=== PATIENT | male | born 1960 | race Caucasian/White ===

== ENCOUNTER 2017-08-31 09:54 | Inpatient (IN) | payer OTHER ==
[2017-08-31 10:12] VITALS: BMI 33.0
--- NOTE | 2017-08-31 12:35 | HP ---
CIWA Score - CIWA Score Nausea/Vomitin-No Nausea/No Vomiting Muscle Tremors: 4-Moderate,w/Arms Extend Anxiety: 4-Mod. Anxious/Guarded Agitation: 4-Moderately Restless Paroxysmal Sweats: 1-Minimal Palms Moist Orientation: 0-Oriented Tacttile Disturbances: 3-Moderate Itch/Numb/Burn Auditory Disturbances: 0-None Visual Disturbances: 0-None Headache: 0-None Present CIWA-Ar Total Score: 16 Admission ROS BHS - HPI Chief Complaint: WITHDRAWAL SX FROM ALCOHOL Allergies/Adverse Reactions: Allergies Allergy/AdvReac Type Severity Reaction Status Date / Time No Known Allergies Allergy Verified 08/31/17 11:42 History of Present Illness: 57 Y/O MALE WITH A HX OF ALCOHOL DEPENDENCE SEEKING DETOX [place] AND ON [facility]. FIRST TIME HERE IN DETOX BUT HAS PREVIOUS [place] EPISODE YEARS AGO [facility]. PT WAS IN [facility] TODAY DUE TO FEET INFECTION. PT WAS GIVEN AUGMENTIN ON DISCHARGE AND REFERRED TO DETOX. Exam Limitations: No Limitations - Ebola screening Have you traveled outside of the country in the last 21 days: No (N) Have you had contact with anyone from an Ebola affected area: No Have you been sick,other than usual withdrawal symptoms: No Do you have a fever: No - Review of Systems Constitutional: Chills, Night Sweats EENT: reports: Blurred Vision (READING GLASSES), Nose Congestion, Dental Problems (UPPER FRONTAL PERMANENT CAPS.) Respiratory: reports: No Symptoms reported Cardiac: reports: No Symptoms Reported GI: reports: Poor Fluid Intake : reports: Frequency Musculoskeletal: reports: Back Pain, Joint Pain (ARTHRITIS ON KNEE AND SHOULDERS. HX KNEE FX.), Muscle Pain, Other (BOTH TOES WITH WOUND.) Integumentary: reports: No Symptoms Reported Neuro: reports: Tremors, Unsteady Gait Endocrine: reports: No Symptoms Reported Hematology: reports: No Symptoms Reported Psychiatric: reports: Orientated x3, Anxious Other Systems: Reviewed and Negative Patient History - Patient Medical History Hx Anemia: No Hx Asthma: No Hx Chronic Obstructive Pulmonary Disease (COPD): No Hx Cardiac Disorders: No Hx Hypertension: Yes (ON MEDS) Hx Hypercholesterolemia: No HX Cerebrovascular Accident: No Hx Seizures: No Hx Diabetes: No Hx Gastrointestinal Disorders: No Hx Genitourinary Disorders: No Hx Sexually Transmitted Disorders: No Hx Renal Disease (ESRD): No Hx Thyroid Disease: No Hx Human Immunodeficiency Virus (HIV): No (NEGATIVE HX) Hx Hepatitis C: Yes (BUT NOW CONVERTED TO NEGATIVE AFTER SOMETIMES) Hx Depression: No Hx Suicide Attempt: No (DENIES) Hx Schizophrenia: No - Patient Surgical History Past Surgical History: Yes Hx Neurologic Surgery: No Hx Cataract Extraction: No Hx Cardiac Surgery: No Hx Lung Surgery: No Hx Breast Surgery: No Hx Breast Biopsy: No Hx Abdominal Surgery: No Hx Appendectomy: No Hx Cholecystectomy: No Hx Genitourinary Surgery: No Hx Section: No Hx Orthopedic Surgery: Yes (amputation, 2 right toes in 2012/2 left toes in 2014 ) Other Surgical History: left knee x3 Anesthesia Reaction: No - PPD History Previous Implant?: Yes Documented Results: Negative w/o proof Implanted On Prior [facility] Admission?: No PPD to be Administered?: Yes - Reproductive History Patient is a Female of Child Bearing Age (11 -55 yrs old): No (MALE) - Smoking Cessation Smoking history: Former smoker Have you smoked in the past 12 months: No If you are a former smoker, when did you quit?: 2016 Hx Chewing Tobacco Use: No Initiated information on smoking cessation: No - Substance & Tx. History Hx Alcohol Use: Yes (BEER) Hx Substance Use: No (DENES) Substance Use Type: Alcohol Hx Substance Use Treatment: Yes ([facility]) - Substances Abused Alcohol-beer Route: Oral Frequency: Daily Amount used: 8-10 (24 oz.) Age of first use: 17 Date of Last Use: 08/30/17 Family Disease History - Family Disease History Family Disease History: CA: Father (HTN-), Brother (HTN;ALCOHOLISM;), Sister (BREAST), Other: Father, Brother Other Family History: OTHER RELATIVES-UNCLE WITH HX CANCER.; STOMACH,PROSTATE, LYMPH NODE BREAST CANCERS RUNNING IN THE FAMILY. Admission Physical Exam BHS - Vital Signs Vital Signs: Vital Signs - 24 hr 08/31/17 10:11 Temperature 97.5 F L Pulse Rate 120 H Respiratory 18 Rate Blood Pressure 153/108 - Physical General Appearance: Yes: Moderate Distress, Irritable, Anxious HEENTM: Yes: EOMI, Normocephalic, MARLA, Pharynx Normal Respiratory: Yes: Chest Non-Tender, Lungs Clear, Normal Breath Sounds, No Respiratory Distress Neck: Yes: No masses,lesions,Nodules, Supple, Trachea in good position Breast: Yes: Breast Exam Deferred Cardiology: Yes: Regular Rhythm, Regular Rate, S1, S2 Abdominal: Yes: Normal Bowel Sounds, Non Tender, Protuberent Genitourinary: Yes: Other (N/C) Back: Yes: Within Normal Limits Musculoskeletal: Yes: full range of Motion, Gait Steady Extremities: Yes: Normal Range of Motion, Non-Tender 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, Fully Oriented, Alert, Motor Strength 5/5 Integumentary: Yes: Dry, Warm Lymphatic: Yes: Within Normal Limits - Diagnostic (1) Alcohol abuse with uncomplicated intoxication Current Visit: Yes Status: Acute (2) Hypertension Current Visit: Yes Status: Chronic Qualifiers: Hypertension type: essential hypertension Qualified Code(s): I10 - Essential (primary) hypertension (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
[2017-08-31] MEDS ORDERED: LOPERAMIDE HCL 2 MG CAPSULE PO PRN (12:53)
[2017-08-31] MEDS ORDERED: ACETAMINOPHEN 325 MG TABLET (FP) PO PRN (12:53)
[2017-08-31] MEDS ORDERED: MAGNESIUM HYDROX 2400MG/30ML ORAL SUSPENSION 30 ML CUP PO PRN (12:53)
[2017-08-31] MEDS ORDERED: MAG HYDROX/AL HYDROX/SIMETH 30 ML UNIT-DOSE CUP PO PRN (12:53)
[2017-08-31] MEDS ORDERED: guaiFENesin/D-METHORPHAN HB 10 ML UNIT-DOSE CUPS PO PRN (12:53)
[2017-08-31] MEDS ORDERED: MENTHOL/PHENOL 1 EACH UD MM PRN (12:53)
[2017-08-31] MEDS ORDERED: P-EPHED 60MG/TRIPROLIDI 2.5MG TABLET PO PRN (12:53)
[2017-08-31] MEDS ORDERED: MAGNESIUM CITRATE 300 ML BOTTLE PO PRN (12:53)
[2017-08-31] MEDS ORDERED: chlordiazePOXIDE HCL 25 MG CAPSULE PO ONE (13:30)
[2017-08-31] MEDS: NIFEdipine E.R 60 MG TABLET (UD) PO SCH (15:02)
[2017-08-31] MEDS: BACITRACIN 0.9 GM PACKET TP SCH ×2 (15:03→22:05)
[2017-08-31] MEDS ORDERED: cloNIDine HCL 0.1 MG TABLET PO ONE (17:15)
[2017-08-31 17:21] LABS: URINE APPEARANCE CLEAR; URINE BILIRUBIN NEGATIVE (NEGATIVE); URINE BLOOD NEGATIVE (NEGATIVE); URINE COLOR AMBER; URINE GLUCOSE (UA) NEGATIVE (NEGATIVE); URINE KETONE TRACE (NEGATIVE); URINE LEUK ESTERASE NEGATIVE (NEGATIVE); URINE NITRITE NEGATIVE (NEGATIVE)
[2017-08-31 17:31] LABS: URINE PROTEIN 2+ (NEGATIVE)
[2017-08-31 17:34] LABS: URINE MUCUS RARE
[2017-08-31] MEDS: chlordiazePOXIDE HCL 25 MG CAPSULE PO SCH ×2 (17:57→22:05)
[2017-08-31] MEDS: IBUPROFEN 400 MG TABLET (FP) PO PRN (17:57)
[2017-08-31] MEDS: AMOX TR/POT CLAV 875MG/125MG TABLETS (FP) PO SCH (22:05)
[2017-08-31] MEDS: THIAMINE HCL 100 MG TABLET (FP) PO SCH (22:05)
[2017-09-01] MEDS: IBUPROFEN 400 MG TABLET (FP) PO PRN ×3 (04:10→22:08)
[2017-09-01] MEDS ORDERED: METHADONE HCL 40 MG DISPERSABLE TABLET PO SCH (06:00)
[2017-09-01] MEDS: METHADONE HCL 40 MG DISPERSABLE TABLET PO SCH (06:00)
[2017-09-01] MEDS: chlordiazePOXIDE HCL 25 MG CAPSULE PO SCH ×4 (06:01→22:07)
[2017-09-01] MEDS ORDERED: ASPIRIN 81 MG CHEWABLE TABLETS PO SCH ×2 (10:00→15:30)
[2017-09-01] MEDS: NIFEdipine E.R 60 MG TABLET (UD) PO SCH (10:03)
[2017-09-01] MEDS: AMOX TR/POT CLAV 875MG/125MG TABLETS (FP) PO SCH ×2 (10:04→22:07)
[2017-09-01] MEDS: BACITRACIN 0.9 GM PACKET TP SCH ×2 (10:04→22:07)
[2017-09-01] MEDS: LISINOPRIL 10 MG TABLET (FP) PO SCH (10:04)
[2017-09-01] MEDS: PRENATAL VITAMINS W/ FOLIC ACID TABLET (FP) PO SCH (10:04)
--- NOTE | 2017-09-01 10:13 | PN ---
S CIWA - CIWA Score Nausea/Vomitin Muscle Tremors: 3 Anxiety: 3 Agitation: 2 Paroxysmal Sweats: 1-Minimal Palms Moist Orientation: 0-Oriented Tacttile Disturbances: 1-Very Mild Itch/Numbness Auditory Disturbances: 1-Very Mild Visual Disturbances: 0-None Headache: 2-Mild CIWA-Ar Total Score: 16 BHS Progress Note (SOAP) Subjective: ALERT,IRRITABLE,ANXIOUS,INTERRUPTED SLEEP,TREMOR Objective: 09/01/17 10:12 Vital Signs Temperature 97 F L 09/01/17 10:00 Pulse Rate 102 H 09/01/17 10:00 Respiratory Rate 20 09/01/17 10:00 Blood Pressure 143/88 09/01/17 10:00 O2 Sat by Pulse Oximetry (%) EKG SINUS TACHYCARDIA 103/MIN NO CHEST PAIN,NO SOB,NO DIZZINESS Laboratory Last Values Urine Color Yaneth 08/31/17 15:00 Urine Appearance Clear 08/31/17 15:00 Urine pH 5.0 (5.0-8.0) 08/31/17 15:00 Ur Specific [place] 1.020 (1.001-1.035) 08/31/17 15:00 Urine Protein 2+ (NEGATIVE) H 08/31/17 15:00 Urine Glucose (UA) Negative (NEGATIVE) 08/31/17 15:00 Urine Ketones Trace (NEGATIVE) H 08/31/17 15:00 Urine Blood Negative (NEGATIVE) 08/31/17 15:00 Urine Nitrite Negative (NEGATIVE) 08/31/17 15:00 Urine Bilirubin Negative (NEGATIVE) 08/31/17 15:00 Urine Urobilinogen 2.0 mg/dL (0.2-1.0) 08/31/17 15:00 Ur Leukocyte Esterase Negative (NEGATIVE) 08/31/17 15:00 Urine WBC (Auto) <1 /hpf (3-5) 08/31/17 15:00 Urine RBC (Auto) <1 /hpf (0-3) 08/31/17 15:00 Urine Mucus Rare 08/31/17 15:00 LABS PENDING Assessment: 09/01/17 10:13 WITHDRAWAL SYMPTOM Plan: CONTINUE DETOX
[2017-09-01 10:18] LABS: ALBUMIN 3.6 g/dl (3.4-5.0); ANION GAP 8 (8-16); BILIRUBIN,TOTAL 1.1 mg/dL (0.2-1.0); BLOOD UREA NITROGEN 15 mg/dL (7-18); CHLORIDE 102 mmol/L (98-107); CO2 29 mmol/L (21-32); CREATININE 0.9 mg/dL (0.7-1.3); GLUCOSE,RANDOM 131 mg/dL (74-106); HEMATOCRIT 39.7 % (35.4-49); HEMOGLOBIN 12.8 GM/dL (11.7-16.9); MCH 30.3 pg (25.7-33.7); MCHC 32.2 g/dl (32.0-35.9); MEAN PLT VOLUME 8.3 fl (7.5-11.1); PLATELET COUNT 125 K/MM3 (134-434); POTASSIUM 3.9 mmol/L (3.5-5.1); RBC 4.22 M/mm3 (4.00-5.60); RDW 14.2 % (11.9-15.9); SGOT/AST 319 U/L (15-37); SGPT/ALT 248 U/L (12-78); SODIUM 139 mmol/L (136-145); TOT PROT 7.8 g/dl (6.4-8.2); WHITE BLOOD COUNT 5.5 K/mm3 (4.0-10.0)
[2017-09-01 10:19] LABS: ALK PHOS 87 U/L (45-117)
[2017-09-01] MEDS: SELENIUM SULFIDE 2.5% LOTION 4 OZ. TP SCH (11:21)
--- NOTE | 2017-09-01 15:19 | EKG ---
Test Reason : Blood Pressure : / mmHG Vent. Rate : 103 BPM Atrial Rate : 103 BPM P-R Int : 130 ms QRS Dur : 096 ms QT Int : 360 ms P-R-T Axes : 060 -49 052 degrees QTc Int : 471 ms SINUS TACHYCARDIA POSSIBLE LEFT ATRIAL ENLARGEMENT LEFT ANTERIOR FASCICULAR BLOCK ABNORMAL ECG NO PREVIOUS ECGS AVAILABLE Confirmed by Flakito Aleman MD ([id number]) on 09/01/2017 3:19:15 PM Referred By: Confirmed By:Flakito Aleman MD
[2017-09-01] MEDS: THIAMINE HCL 100 MG TABLET (FP) PO SCH (22:07)
[2017-09-02] MEDS: chlordiazePOXIDE HCL 25 MG CAPSULE PO PRN ×2 (02:53→13:21)
[2017-09-02] MEDS: IBUPROFEN 400 MG TABLET (FP) PO PRN (04:29)
[2017-09-02] MEDS: chlordiazePOXIDE HCL 25 MG CAPSULE PO SCH ×2 (05:23→10:43)
[2017-09-02] MEDS: METHADONE HCL 40 MG DISPERSABLE TABLET PO SCH (05:23)
--- NOTE | 2017-09-02 10:32 | PN ---
S CIWA - CIWA Score Nausea/Vomitin Muscle Tremors: 3 Anxiety: 3 Agitation: 2 Paroxysmal Sweats: 1-Minimal Palms Moist Orientation: 0-Oriented Tacttile Disturbances: 1-Very Mild Itch/Numbness Auditory Disturbances: 1-Very Mild Visual Disturbances: 0-None Headache: 2-Mild CIWA-Ar Total Score: 16 BHS Progress Note (SOAP) Subjective: ALERT,IRRITABLE,ANXIOUS,INTERRUPTED SLEEP,PAIN IN BOTH KNEES FROM ARTHRITIS Objective: 09/02/17 10:28 Vital Signs Temperature 98.4 F 09/02/17 06:21 Pulse Rate 89 09/02/17 06:21 Respiratory Rate 18 09/02/17 06:21 Blood Pressure 133/66 09/02/17 06:21 O2 Sat by Pulse Oximetry (%) Laboratory Last Values WBC 5.5 K/mm3 (4.0-10.0) 09/01/17 08:00 RBC 4.22 M/mm3 (4.00-5.60) 09/01/17 08:00 Hgb 12.8 GM/dL (11.7-16.9) 09/01/17 08:00 Hct 39.7 % (35.4-49) 09/01/17 08:00 MCV 94.0 fl (80-96) 09/01/17 08:00 MCH 30.3 pg (25.7-33.7) 09/01/17 08:00 MCHC 32.2 g/dl (32.0-35.9) 09/01/17 08:00 RDW 14.2 % (11.9-15.9) 09/01/17 08:00 Plt Count 125 K/MM3 (134-434) L 09/01/17 08:00 MPV 8.3 fl (7.5-11.1) 09/01/17 08:00 Sodium 139 mmol/L (136-145) 09/01/17 08:00 Potassium 3.9 mmol/L (3.5-5.1) 09/01/17 08:00 Chloride 102 mmol/L (98-107) 09/01/17 08:00 Carbon Dioxide 29 mmol/L (21-32) 09/01/17 08:00 Anion Gap 8 (8-16) 09/01/17 08:00 BUN 15 mg/dL (7-18) 09/01/17 08:00 Creatinine 0.9 mg/dL (0.7-1.3) 09/01/17 08:00 Creat Clearance w eGFR > 60 (>60) 09/01/17 08:00 Random Glucose 131 mg/dL (74-106) H 09/01/17 08:00 Calcium 9.0 mg/dL (8.5-10.1) 09/01/17 08:00 Total Bilirubin 1.1 mg/dL (0.2-1.0) H 09/01/17 08:00 AST 319 U/L (15-37) H 09/01/17 08:00 ALT 248 U/L (12-78) H 09/01/17 08:00 Alkaline Phosphatase 87 U/L (45-117) 09/01/17 08:00 Total Protein 7.8 g/dl (6.4-8.2) 09/01/17 08:00 Albumin 3.6 g/dl (3.4-5.0) 09/01/17 08:00 Urine Color Yaneth 08/31/17 15:00 Urine Appearance Clear 08/31/17 15:00 Urine pH 5.0 (5.0-8.0) 08/31/17 15:00 Ur Specific [place] 1.020 (1.001-1.035) 08/31/17 15:00 Urine Protein 2+ (NEGATIVE) H 08/31/17 15:00 Urine Glucose (UA) Negative (NEGATIVE) 08/31/17 15:00 Urine Ketones Trace (NEGATIVE) H 08/31/17 15:00 Urine Blood Negative (NEGATIVE) 08/31/17 15:00 Urine Nitrite Negative (NEGATIVE) 08/31/17 15:00 Urine Bilirubin Negative (NEGATIVE) 08/31/17 15:00 Urine Urobilinogen 2.0 mg/dL (0.2-1.0) 08/31/17 15:00 Ur Leukocyte Esterase Negative (NEGATIVE) 08/31/17 15:00 Urine WBC (Auto) <1 /hpf (3-5) 08/31/17 15:00 Urine RBC (Auto) <1 /hpf (0-3) 08/31/17 15:00 Urine Mucus Rare 08/31/17 15:00 RPR Titer Nonreactive (NONREACTIVE) 09/01/17 08:00 Assessment: 09/02/17 10:30 WITHDRAWAL SYMPTOM,BGM MONITORING INITIAL GLUCOSE IS 131,D/C TYLENOL DUE TO ELEVATION OF AST,ALT REPEAT ALT,AST,INR IN AM Plan: CONTINUE DETOX
[2017-09-02] MEDS: LISINOPRIL 10 MG TABLET (FP) PO SCH (10:43)
[2017-09-02] MEDS: AMOX TR/POT CLAV 875MG/125MG TABLETS (FP) PO SCH ×2 (10:43→22:21)
[2017-09-02] MEDS: NIFEdipine E.R 60 MG TABLET (UD) PO SCH (10:43)
[2017-09-02] MEDS: ASPIRIN COATED 81 MG TABLET.EC PO SCH (10:43)
[2017-09-02] MEDS: PRENATAL VITAMINS W/ FOLIC ACID TABLET (FP) PO SCH (10:43)
[2017-09-02] MEDS: BACITRACIN 0.9 GM PACKET TP SCH ×2 (10:43→22:21)
[2017-09-02] MEDS: SELENIUM SULFIDE 2.5% LOTION 4 OZ. TP SCH (10:45)
[2017-09-02] MEDS: IBUPROFEN 600 MG TABLET (FP) PO PRN ×2 (13:21→22:22)
[2017-09-02] MEDS: chlordiazePOXIDE 5 MG CAPSULE PO SCH ×2 (18:32→22:22)
[2017-09-02] MEDS: THIAMINE HCL 100 MG TABLET (FP) PO SCH (22:22)
[2017-09-03] MEDS: IBUPROFEN 600 MG TABLET (FP) PO PRN (04:23)
[2017-09-03] MEDS: METHADONE HCL 40 MG DISPERSABLE TABLET PO SCH (05:26)
[2017-09-03] MEDS: chlordiazePOXIDE 5 MG CAPSULE PO SCH ×2 (05:26→10:45)
[2017-09-03 10:04] LABS: INR 1.08 (0.82-1.09); PROTHROMBIN TIME (PATIENT) 12.2 SEC (9.98-11.88)
[2017-09-03 10:16] LABS: SGOT/AST 135 U/L (15-37); SGPT/ALT 216 U/L (12-78)
--- NOTE | 2017-09-03 10:30 | PN ---
BHS Progress Note (SOAP) Subjective: ALERT,IRRITABLE,ANXIOUS,INTERRUPTED SLEEP,TREMOR Objective: 09/03/17 10:29 Vital Signs Temperature 97.5 F L 09/03/17 10:00 Pulse Rate 93 H 09/03/17 10:00 Respiratory Rate 20 09/03/17 10:00 Blood Pressure 124/84 09/03/17 10:00 O2 Sat by Pulse Oximetry (%) [facility] 104 Assessment: 09/03/17 10:29 WITHDRAWAL SYMPTOM Plan: CONTINUE DETOX,DISCHARGE IN AM
[2017-09-03] MEDS: NIFEdipine E.R 60 MG TABLET (UD) PO SCH (10:45)
[2017-09-03] MEDS: BACITRACIN 0.9 GM PACKET TP SCH ×2 (10:46→22:08)
[2017-09-03] MEDS: AMOX TR/POT CLAV 875MG/125MG TABLETS (FP) PO SCH ×2 (10:46→22:08)
[2017-09-03] MEDS: LISINOPRIL 10 MG TABLET (FP) PO SCH (10:46)
[2017-09-03] MEDS: PRENATAL VITAMINS W/ FOLIC ACID TABLET (FP) PO SCH (10:46)
[2017-09-03] MEDS: ASPIRIN COATED 81 MG TABLET.EC PO SCH (10:46)
[2017-09-03] MEDS: SELENIUM SULFIDE 2.5% LOTION 4 OZ. TP SCH (10:47)
[2017-09-03] MEDS: chlordiazePOXIDE HCL 10 MG CAPSULE PO SCH ×2 (18:04→22:08)
[2017-09-03] MEDS: THIAMINE HCL 100 MG TABLET (FP) PO SCH (22:07)
[2017-09-04] MEDS: IBUPROFEN 600 MG TABLET (FP) PO PRN ×2 (01:12→10:18)
[2017-09-04] MEDS: METHADONE HCL 40 MG DISPERSABLE TABLET PO SCH (05:34)
[2017-09-04] MEDS: chlordiazePOXIDE HCL 10 MG CAPSULE PO SCH ×2 (05:34→11:30)
--- NOTE | 2017-09-04 08:54 | DS ---
[facility] Detox Discharge Summary Admission Date: 08/31/17 Discharge Date: 09/04/17 - History Present History: Alcohol Dependence Additional Comments: follow up with after care program as arrangement Pertinent Past History: essential hypertension mmtp ulcers big toes - Physical Exam Results Vital Signs: Vital Signs Temperature 97.3 F L 09/04/17 06:00 Pulse Rate 103 H 09/04/17 06:47 Respiratory Rate 18 09/04/17 06:47 Blood Pressure 125/95 09/04/17 06:47 O2 Sat by Pulse Oximetry (%) Pertinent Admission Physical Exam Findings: withdrawal symptom and finding - Treatment Hospital Course: Detox Protocol Followed, Detoxed Safely, Discharged Condition Good Patient has Accepted a Rehab Referral to: declined - Medication Discharge Medications: Ambulatory Orders Amox-Tr/K Cl [Augmentin - 875Mg Tablet] 1 tab PO Q12H 08/31/17 Aspirin [ASA -] 81 mg PO DAILY 08/31/17 Lisinopril [Zestril] 10 mg PO DAILY 08/31/17 Methadone [Dolophine -] 40 mg PO DAILY 08/31/17 Nifedipine ER [Procardia Xl -] 60 mg PO DAILY 08/31/17 - Diagnosis (1) Alcohol dependence with uncomplicated withdrawal Current Visit: Yes Status: Acute (2) Alcohol abuse with uncomplicated intoxication Current Visit: Yes Status: Acute (3) Bilateral great toes ulcers Current Visit: Yes Status: Chronic (4) Hypertension Current Visit: Yes Status: Chronic Qualifiers: Hypertension type: essential hypertension Qualified Code(s): I10 - Essential (primary) hypertension (5) Methadone maintenance therapy patient Current Visit: Yes Status: Chronic (6) Arthritis of both knees Current Visit: Yes Status: Acute - AMA Did Patient Leave Against Medical Advice: No
[2017-09-04] MEDS: ASPIRIN COATED 81 MG TABLET.EC PO SCH (10:18)
[2017-09-04] MEDS: LISINOPRIL 10 MG TABLET (FP) PO SCH (10:18)
[2017-09-04] MEDS: PRENATAL VITAMINS W/ FOLIC ACID TABLET (FP) PO SCH (10:18)
[2017-09-04] MEDS: NIFEdipine E.R 60 MG TABLET (UD) PO SCH (10:18)
[2017-09-04] MEDS: BACITRACIN 0.9 GM PACKET TP SCH (10:19)
[2017-09-04] MEDS: AMOX TR/POT CLAV 875MG/125MG TABLETS (FP) PO SCH (10:19)
[2017-09-04] MEDS: SELENIUM SULFIDE 2.5% LOTION 4 OZ. TP SCH (10:19)
[2017-09-04 10:34] VITALS: BP 132/91; PULSE 109; TEMP 98
== END 2017-09-04 11:05 | disposition home or self-care (01) | DRG 773 ==
LOC: YASAS 09:54 → Y6N 12:30
PROVIDERS: ADMIT Internal Medicine; ATTEND Internal Medicine
PROC: HZ2ZZZZ Detoxification Services for Substance Abuse Treatment (ICD-10-PCS; principal; 2017-08-31)
DX: F11.20 Opioid dependence, uncomplicated (principal); F10.230 Alcohol dependence with withdrawal, uncomplicated; I10 Essential (primary) hypertension; M17.0 Bilateral primary osteoarthritis of knee; L97.519 Non-pressure chronic ulcer of other part of right foot with unspecified severity; L97.529 Non-pressure chronic ulcer of other part of left foot with unspecified severity; Z89.421 Acquired absence of other right toe(s)
CPT/HCPCS: 36415; 80053; 81003; 81015; 82962; 84450; 84460; 85027; 85610; 86593; 93005; 93010

== ENCOUNTER 2018-05-30 09:51 | Inpatient (IN) | payer OTHER ==
[2018-05-30 10:08] VITALS: BMI 32.1
--- NOTE | 2018-05-30 11:03 | HP ---
CIWA Score - CIWA Score Nausea/Vomitin Muscle Tremors: 3 Anxiety: 3 Agitation: 3 Paroxysmal Sweats: 1-Minimal Palms Moist Orientation: 0-Oriented Tacttile Disturbances: 1-Very Mild Itch/Numbness Auditory Disturbances: 1-Very Mild Visual Disturbances: 0-None Headache: 2-Mild CIWA-Ar Total Score: 16 Admission ROS BHS - HPI Chief Complaint: i need help to stop drinking alcohol Allergies/Adverse Reactions: Allergies Allergy/AdvReac Type Severity Reaction Status Date / Time No Known Allergies Allergy Verified 05/30/18 10:09 History of Present Illness: this 57 years old male with alcohol dependence,seeking detox,withdrawal symptom, last treatment [facility] 08/31/17 to 09/04/17 seen in [facility] last night,has infection both feet prescribed bactrim ds 1 tab po bid for 10 days mmtp 40 ms/day last medicated to day syncope alcohol related hypertension non compliance s/p amputation of right big toe and second toe in 2012 s/p amputation of left big toe and second toe in 2016 ulcer of right foot in 2017 ulcer left 5th toe for 2 weeks longest period of sobriety 6 months neuropathy history of hepatitis c Exam Limitations: No Limitations - Ebola screening Have you been sick,other than usual withdrawal symptoms: No - Review of Systems Constitutional: Loss of Appetite, Malaise, Night Sweats, Changes in sleep, Weakness, Unexplained wgt Loss EENT: reports: Nose Congestion Respiratory: reports: No Symptoms reported Cardiac: reports: Palpitations GI: reports: Nausea, Poor Appetite, Vomiting, Abdominal cramping : reports: No Symptoms Reported Musculoskeletal: reports: Back Pain, Muscle Pain Integumentary: reports: Dryness Neuro: reports: Headache, Tremors Endocrine: reports: No Symptoms Reported Hematology: reports: No Symptoms Reported Psychiatric: reports: No Sypmtoms Reported, Judgement Intact, Mood/Affect Appropiate, Orientated x3 Patient History - Patient Medical History Hx Anemia: No Hx Asthma: No Hx Chronic Obstructive Pulmonary Disease (COPD): No Hx Cancer: No Hx Cardiac Disorders: No Hx Hypertension: Yes (ON MEDS non compliance) Hx Hypercholesterolemia: No Hx Pacemaker: No HX Cerebrovascular Accident: No Hx Seizures: No Hx Diabetes: No Hx Gastrointestinal Disorders: No Hx Liver Disease: No Hx Genitourinary Disorders: No Hx Sexually Transmitted Disorders: No Hx Renal Disease (ESRD): No Hx Thyroid Disease: No Hx Human Immunodeficiency Virus (HIV): No (NEGATIVE HX) Hx Hepatitis C: Yes (BUT NOW CONVERTED TO NEGATIVE AFTER SOMETIMES) Hx Depression: No Hx Suicide Attempt: No (DENIES) Hx Schizophrenia: No Other Medical History: no suicidal,no homicidal,/p amputation of big and second toes bilaterally - Patient Surgical History Past Surgical History: Yes Hx Neurologic Surgery: No Hx Cataract Extraction: No Hx Cardiac Surgery: No Hx Lung Surgery: No Hx Breast Surgery: No Hx Breast Biopsy: No Hx Abdominal Surgery: No Hx Appendectomy: No Hx Cholecystectomy: No Hx Genitourinary Surgery: No Hx Section: No Hx Orthopedic Surgery: Yes (amputation B/L FOOT IST AND ) Other Surgical History: BROKEN L knee, x3 SX 20 YEARS AGO Anesthesia Reaction: No - PPD History Previous Implant?: Yes Documented Results: Negative w/proof Implanted On Prior [facility] Admission?: Yes Date: 09/02/17 Results: NEGATIVE PPD to be Administered?: No - Smoking Cessation Smoking history: Former smoker Have you smoked in the past 12 months: No If you are a former smoker, when did you quit?: 2016 Hx Chewing Tobacco Use: No Initiated information on smoking cessation: Yes 'Breaking Loose' booklet given: 05/30/18 - Substance & Tx. History Hx Alcohol Use: Yes Hx Substance Use: No Substance Use Type: Alcohol Hx Substance Use Treatment: Yes ([facility] ;04/10 to 09/04/17) - Substances Abused Alcohol Route: Oral Frequency: Daily Amount used: 12-20 CANS OF BEER (24 OUNCES) Age of first use: 18 Date of Last Use: 05/29/18 Family Disease History - Family Disease History Family Disease History: CA: Father (HTN-), Brother (HTN;ALCOHOLISM;), Sister (BREAST), Other: Father, Brother Admission Physical Exam BHS - Vital Signs Vital Signs: Vital Signs - 24 hr 05/30/18 10:06 Temperature 97.8 F Pulse Rate 117 H Respiratory 18 Rate Blood Pressure 184/119 H - Physical General Appearance: Yes: Moderate Distress, Tremorous, Irritable, Sweating, Anxious HEENTM: Yes: Normal ENT Inspection, MARLA, Pharynx Normal Respiratory: Yes: Lungs Clear, Normal Breath Sounds, No Respiratory Distress Neck: Yes: Supple Breast: Yes: Within Normal Limits Cardiology: Yes: Tachycardia Abdominal: Yes: Within Normal Limits, Normal Bowel Sounds, Non Tender, Soft Genitourinary: Yes: Within Normal Limits Back: Yes: Muscle Spasm Musculoskeletal: Yes: Back pain, Muscle Pain Extremities: Yes: Within Normal Limits, Normal Range of Motion, Tremors, Other ( s/p amputation big and second toes bilaterlly ulcer of righ foot 1x1 cm clean ulcer of left 5th toe) 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, Fully Oriented, Alert, Motor Strength 5/5 Integumentary: Yes: Dry Lymphatic: Yes: Within Normal Limits - Diagnostic (1) Alcohol dependence with uncomplicated withdrawal Current Visit: No Status: Acute (2) Arthritis of both knees Current Visit: No Status: Acute (3) Hypertension Current Visit: No Status: Chronic Qualifiers: Hypertension type: essential hypertension Qualified Code(s): I10 - Essential (primary) hypertension (4) Methadone maintenance therapy patient Current Visit: No Status: Chronic (5) History of amputation of great toe Current Visit: Yes Status: Acute (6) 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 Current Visit: Yes Status: Acute (7) 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 Current Visit: Yes Status: Acute (8) Ulcer of foot Current Visit: Yes Status: Acute Qualifiers: Laterality: left Cleared for Admission [facility] - Detox or Rehab [facility] Level of Care: Medically Managed Detox Regimen/Protocol: Librium [facility] Breath Alcohol Content Breath Alcohol Content: 0 Urine Drug Screen - Results Drug Screen Negative: No Urine Drug Screen Results: BZO-Benzodiazepines, MTD-Methadone
[2018-05-30] MEDS ORDERED: IBUPROFEN 400 MG TABLET (FP) PO PRN (11:24)
[2018-05-30] MEDS ORDERED: P-EPHED 60MG/TRIPROLIDI 2.5MG TABLET PO PRN (11:24)
[2018-05-30] MEDS ORDERED: hydrOXYzine PAMOATE 25 MG CAPSULE (FP) PO PRN (11:24)
[2018-05-30] MEDS ORDERED: guaiFENesin/D-METHORPHAN HB 10 ML UNIT-DOSE CUPS PO PRN (11:24)
[2018-05-30] MEDS ORDERED: MAGNESIUM HYDROX 2400MG/30ML ORAL SUSPENSION 30 ML CUP PO PRN (11:24)
[2018-05-30] MEDS ORDERED: MAG HYDROX/AL HYDROX/SIMETH 30 ML UNIT-DOSE CUP PO PRN (11:24)
[2018-05-30] MEDS ORDERED: MENTHOL/PHENOL 1 EACH UD MM PRN (11:24)
[2018-05-30] MEDS ORDERED: MAGNESIUM CITRATE 300 ML BOTTLE PO PRN (11:24)
[2018-05-30] MEDS ORDERED: LOPERAMIDE HCL 2 MG CAPSULE PO PRN (11:24)
[2018-05-30] MEDS ORDERED: chlordiazePOXIDE HCL 25 MG CAPSULE PO PRN (11:24)
[2018-05-30] MEDS ORDERED: ACETAMINOPHEN 325 MG TABLET (FP) PO PRN (11:24)
[2018-05-30] MEDS ORDERED: IBUPROFEN 600 MG TABLET (FP) PO PRN (11:30)
[2018-05-30] MEDS: NIFEdipine E.R 60 MG TABLET (UD) PO SCH (12:52)
[2018-05-30] MEDS: LISINOPRIL 10 MG TABLET (FP) PO SCH (12:54)
[2018-05-30] MEDS: chlordiazePOXIDE HCL 25 MG CAPSULE PO SCH ×2 (17:41→22:37)
[2018-05-30 20:42] LABS: URINE APPEARANCE CLEAR; URINE BILIRUBIN NEGATIVE (<2.0 mg/dL); URINE COLOR LTYELLOW; URINE GLUCOSE (UA) NEGATIVE (NEGATIVE); URINE KETONE NEGATIVE (NEGATIVE); URINE LEUK ESTERASE NEGATIVE (NEGATIVE); URINE NITRITE NEGATIVE (NEGATIVE); URINE PROTEIN NEGATIVE (NEGATIVE); URINE UROBILINOGEN NEGATIVE mg/dL (0.2-1.0)
[2018-05-30] MEDS ORDERED: MELATONIN 5 MG TABLETS PO PRN (22:00)
[2018-05-30] MEDS: THIAMINE HCL 100 MG TABLET (FP) PO SCH (22:36)
[2018-05-30] MEDS: SULFAMETHOXAZOLE/TRIMETHOPRIM 800MG/160MG D.S. TABLET PO SCH (22:37)
[2018-05-31] MEDS: chlordiazePOXIDE HCL 25 MG CAPSULE PO SCH ×4 (05:19→22:22)
[2018-05-31] MEDS: METHADONE HCL 40 MG DISPERSABLE TABLET PO SCH (07:51)
[2018-05-31 10:10] LABS: HEMATOCRIT 40.2 % (35.4-49); HEMOGLOBIN 13.2 GM/dL (11.7-16.9); MCH 30.4 pg (25.7-33.7); MCHC 32.9 g/dl (32.0-35.9); MEAN CELL VOLUME 92.3 fl (80-96); MEAN PLT VOLUME 8.1 fl (7.5-11.1); PLATELET COUNT 135 K/MM3 (134-434); RBC 4.35 M/mm3 (4.00-5.60); RDW 13.6 % (11.9-15.9); WHITE BLOOD COUNT 4.5 K/mm3 (4.0-10.0)
[2018-05-31] MEDS: SULFAMETHOXAZOLE/TRIMETHOPRIM 800MG/160MG D.S. TABLET PO SCH ×2 (10:21→22:22)
[2018-05-31] MEDS: NIFEdipine E.R 60 MG TABLET (UD) PO SCH (10:21)
[2018-05-31] MEDS: PRENATAL VITAMINS W/ FOLIC ACID TABLET (FP) PO SCH (10:21)
[2018-05-31] MEDS: LISINOPRIL 10 MG TABLET (FP) PO SCH (10:21)
[2018-05-31] MEDS: ASPIRIN 81 MG CHEWABLE TABLETS PO SCH (10:22)
[2018-05-31 10:37] LABS: ALBUMIN 3.5 g/dl (3.4-5.0); ALK PHOS 94 U/L (45-117); ANION GAP 8 MMOL/L (8-16); BILIRUBIN,TOTAL 0.7 mg/dL (0.2-1); BLOOD UREA NITROGEN 10 mg/dL (7-18); CALCIUM 8.9 mg/dL (8.5-10.1); CHLORIDE 105 mmol/L (98-107); CO2 29 mmol/L (21-32); CREATININE 0.6 mg/dL (0.55-1.3); GLUCOSE,RANDOM 104 mg/dL (74-106); SGOT/AST 44 U/L (15-37); SGPT/ALT 47 U/L (13-61); SODIUM 142 mmol/L (136-145); TOT PROT 7.7 g/dl (6.4-8.2)
--- NOTE | 2018-05-31 11:11 | EKG ---
Test Reason : Blood Pressure : / mmHG Vent. Rate : 092 BPM Atrial Rate : 092 BPM P-R Int : 122 ms QRS Dur : 106 ms QT Int : 388 ms P-R-T Axes : 042 -56 011 degrees QTc Int : 479 ms NORMAL SINUS RHYTHM LEFT ANTERIOR FASCICULAR BLOCK ABNORMAL ECG WHEN COMPARED WITH ECG OF 31-AUG-2017 14:01, T WAVE VARIATION Confirmed by ALKA TYSON MD ([id number]) on 05/31/2018 11:10:57 AM Referred By: BESSY HERNÁNDEZ Confirmed By:ALKA TYSON MD
[2018-05-31] MEDS ORDERED: FLU VACCINE QUAD 60 MCG/0.5 ML (MDV 18-19) IM ONE (12:00)
--- NOTE | 2018-05-31 12:03 | PN ---
S CIWA - CIWA Score Nausea/Vomitin Muscle Tremors: 3 Anxiety: 3 Agitation: 2 Paroxysmal Sweats: 3 Orientation: 0-Oriented Tacttile Disturbances: 0-None Auditory Disturbances: 0-None Visual Disturbances: 0-None Headache: 0-None Present CIWA-Ar Total Score: 13 BHS Progress Note (SOAP) Subjective: Sweats Shakes sleep disturbance Objective: 05/31/18 11:58 Anxious A & Ox 3 Vital Signs Temperature 97.4 F L 05/31/18 09:45 Pulse Rate 93 H 05/31/18 09:45 Respiratory Rate 20 05/31/18 09:45 Blood Pressure 128/83 05/31/18 09:45 O2 Sat by Pulse Oximetry (%) Laboratory Last Values WBC 4.5 K/mm3 (4.0-10.0) 05/31/18 07:30 RBC 4.35 M/mm3 (4.00-5.60) 05/31/18 07:30 Hgb 13.2 GM/dL (11.7-16.9) 05/31/18 07:30 Hct 40.2 % (35.4-49) 05/31/18 07:30 MCV 92.3 fl (80-96) 05/31/18 07:30 MCH 30.4 pg (25.7-33.7) 05/31/18 07:30 MCHC 32.9 g/dl (32.0-35.9) 05/31/18 07:30 RDW 13.6 % (11.9-15.9) 05/31/18 07:30 Plt Count 135 K/MM3 (134-434) 05/31/18 07:30 MPV 8.1 fl (7.5-11.1) 05/31/18 07:30 Sodium 142 mmol/L (136-145) 05/31/18 07:30 Potassium 3.0 mmol/L (3.5-5.1) L 05/31/18 07:30 Chloride 105 mmol/L (98-107) 05/31/18 07:30 Carbon Dioxide 29 mmol/L (21-32) 05/31/18 07:30 Anion Gap 8 MMOL/L (8-16) 05/31/18 07:30 BUN 10 mg/dL (7-18) 05/31/18 07:30 Creatinine 0.6 mg/dL (0.55-1.3) 05/31/18 07:30 Creat Clearance w eGFR > 60 (>60) 05/31/18 07:30 Random Glucose 104 mg/dL (74-106) 05/31/18 07:30 Calcium 8.9 mg/dL (8.5-10.1) 05/31/18 07:30 Total Bilirubin 0.7 mg/dL (0.2-1) 05/31/18 07:30 AST 44 U/L (15-37) H 05/31/18 07:30 ALT 47 U/L (13-61) 05/31/18 07:30 Alkaline Phosphatase 94 U/L (45-117) 05/31/18 07:30 Total Protein 7.7 g/dl (6.4-8.2) 05/31/18 07:30 Albumin 3.5 g/dl (3.4-5.0) 05/31/18 07:30 Urine Color Ltyellow 05/30/18 15:49 Urine Appearance Clear 05/30/18 15:49 Urine pH 6.0 (5.0-8.0) 05/30/18 15:49 Ur Specific [place] 1.011 (1.010-1.035) 05/30/18 15:49 Urine Protein Negative (NEGATIVE) 05/30/18 15:49 Urine Glucose (UA) Negative (NEGATIVE) 05/30/18 15:49 Urine Ketones Negative (NEGATIVE) 05/30/18 15:49 Urine Blood Negative (NEGATIVE) 05/30/18 15:49 Urine Nitrite Negative (NEGATIVE) 05/30/18 15:49 Urine Bilirubin Negative (<2.0 mg/dL) 05/30/18 15:49 Urine Urobilinogen Negative mg/dL (0.2-1.0) 05/30/18 15:49 Ur Leukocyte Esterase Negative (NEGATIVE) 05/30/18 15:49 RPR Titer Nonreactive (NONREACTIVE) 05/31/18 07:30 labs noted Assessment: 05/31/18 12:03 withdrawal sx Plan: For d/c Continue wound dressing Increase water hydration
[2018-05-31] MEDS: BACITRACIN 0.9 GM PACKET TP SCH ×2 (12:40→22:22)
--- NOTE | 2018-05-31 17:02 | PN ---
[facility] Progress Note Note: Vital Signs Temperature 97.4 F L 05/31/18 14:23 Pulse Rate 114 H 05/31/18 14:23 Respiratory Rate 20 05/31/18 14:23 Blood Pressure 125/87 05/31/18 14:23 O2 Sat by Pulse Oximetry (%) Laboratory Last Values WBC 4.5 K/mm3 (4.0-10.0) 05/31/18 07:30 RBC 4.35 M/mm3 (4.00-5.60) 05/31/18 07:30 Hgb 13.2 GM/dL (11.7-16.9) 05/31/18 07:30 Hct 40.2 % (35.4-49) 05/31/18 07:30 MCV 92.3 fl (80-96) 05/31/18 07:30 MCH 30.4 pg (25.7-33.7) 05/31/18 07:30 MCHC 32.9 g/dl (32.0-35.9) 05/31/18 07:30 RDW 13.6 % (11.9-15.9) 05/31/18 07:30 Plt Count 135 K/MM3 (134-434) 05/31/18 07:30 MPV 8.1 fl (7.5-11.1) 05/31/18 07:30 Sodium 142 mmol/L (136-145) 05/31/18 07:30 Potassium 3.0 mmol/L (3.5-5.1) L 05/31/18 07:30 Chloride 105 mmol/L (98-107) 05/31/18 07:30 Carbon Dioxide 29 mmol/L (21-32) 05/31/18 07:30 Anion Gap 8 MMOL/L (8-16) 05/31/18 07:30 BUN 10 mg/dL (7-18) 05/31/18 07:30 Creatinine 0.6 mg/dL (0.55-1.3) 05/31/18 07:30 Creat Clearance w eGFR > 60 (>60) 05/31/18 07:30 Random Glucose 104 mg/dL (74-106) 05/31/18 07:30 Calcium 8.9 mg/dL (8.5-10.1) 05/31/18 07:30 Total Bilirubin 0.7 mg/dL (0.2-1) 05/31/18 07:30 AST 44 U/L (15-37) H 05/31/18 07:30 ALT 47 U/L (13-61) 05/31/18 07:30 Alkaline Phosphatase 94 U/L (45-117) 05/31/18 07:30 Total Protein 7.7 g/dl (6.4-8.2) 05/31/18 07:30 Albumin 3.5 g/dl (3.4-5.0) 05/31/18 07:30 Urine Color Ltyellow 05/30/18 15:49 Urine Appearance Clear 05/30/18 15:49 Urine pH 6.0 (5.0-8.0) 05/30/18 15:49 Ur Specific [place] 1.011 (1.010-1.035) 05/30/18 15:49 Urine Protein Negative (NEGATIVE) 05/30/18 15:49 Urine Glucose (UA) Negative (NEGATIVE) 05/30/18 15:49 Urine Ketones Negative (NEGATIVE) 05/30/18 15:49 Urine Blood Negative (NEGATIVE) 05/30/18 15:49 Urine Nitrite Negative (NEGATIVE) 05/30/18 15:49 Urine Bilirubin Negative (<2.0 mg/dL) 05/30/18 15:49 Urine Urobilinogen Negative mg/dL (0.2-1.0) 05/30/18 15:49 Ur Leukocyte Esterase Negative (NEGATIVE) 05/30/18 15:49 RPR Titer Nonreactive (NONREACTIVE) 05/31/18 07:30 hypokalemia start Kdur repeat K+ in AM continue to monitor
[2018-05-31] MEDS ORDERED: POTASSIUM CHLORIDE TABS 20 MEQ TABLET.ER (FP) PO ONE (17:30)
[2018-05-31] MEDS: THIAMINE HCL 100 MG TABLET (FP) PO SCH (22:22)
[2018-06-01] MEDS: METHADONE HCL 40 MG DISPERSABLE TABLET PO SCH (05:14)
[2018-06-01] MEDS: chlordiazePOXIDE HCL 25 MG CAPSULE PO SCH ×2 (05:14→10:09)
[2018-06-01] MEDS: SULFAMETHOXAZOLE/TRIMETHOPRIM 800MG/160MG D.S. TABLET PO SCH ×2 (10:08→22:09)
[2018-06-01] MEDS: LISINOPRIL 10 MG TABLET (FP) PO SCH (10:08)
[2018-06-01] MEDS: BACITRACIN 0.9 GM PACKET TP SCH ×2 (10:08→22:09)
[2018-06-01] MEDS: PRENATAL VITAMINS W/ FOLIC ACID TABLET (FP) PO SCH (10:08)
[2018-06-01] MEDS: ASPIRIN 81 MG CHEWABLE TABLETS PO SCH (10:08)
[2018-06-01] MEDS: NIFEdipine E.R 60 MG TABLET (UD) PO SCH (10:09)
--- NOTE | 2018-06-01 11:18 | PN ---
S CIWA - CIWA Score Nausea/Vomitin-No Nausea/No Vomiting Muscle Tremors: 3 Anxiety: 1-Mildly Anxious Agitation: 1-Slight > Activity Paroxysmal Sweats: 3 Orientation: 0-Oriented Tacttile Disturbances: 3-Moderate Itch/Numb/Burn Auditory Disturbances: 0-None Visual Disturbances: 0-None Headache: 0-None Present CIWA-Ar Total Score: 11 BHS Progress Note (SOAP) Subjective: PATIENT C/O BURNING, NUMBNESS AND TINGLING TO FEET, SHAKES AND ANXIETY Objective: 06/01/18 11:16 Vital Signs Temperature 99.3 F 06/01/18 09:24 Pulse Rate 100 H 06/01/18 09:24 Respiratory Rate 19 06/01/18 09:24 Blood Pressure 134/99 06/01/18 09:24 O2 Sat by Pulse Oximetry (%) Laboratory Tests 05/30/18 05/31/18 05/31/18 15:49 07:30 07:30 WBC 4.5 RBC 4.35 Hgb 13.2 Hct 40.2 MCV 92.3 MCH 30.4 MCHC 32.9 RDW 13.6 Plt Count 135 MPV 8.1 Sodium 142 Potassium 3.0 L Chloride 105 Carbon Dioxide 29 Anion Gap 8 BUN 10 Creatinine 0.6 Creat Clearance w eGFR > 60 Random Glucose 104 Calcium 8.9 Total Bilirubin 0.7 AST 44 H ALT 47 Alkaline Phosphatase 94 Total Protein 7.7 Albumin 3.5 Urine Color Ltyellow Urine Appearance Clear Urine pH 6.0 Ur Specific [place] 1.011 Urine Protein Negative Urine Glucose (UA) Negative Urine Ketones Negative Urine Blood Negative Urine Nitrite Negative Urine Bilirubin Negative Urine Urobilinogen Negative Ur Leukocyte Esterase Negative RPR Titer 05/31/18 06/01/18 07:30 07:00 WBC RBC Hgb Hct MCV MCH MCHC RDW Plt Count MPV Sodium Potassium 4.1 Chloride Carbon Dioxide Anion Gap BUN Creatinine Creat Clearance w eGFR Random Glucose Calcium Total Bilirubin AST ALT Alkaline Phosphatase Total Protein Albumin Urine Color Urine Appearance Urine pH Ur Specific [place] Urine Protein Urine Glucose (UA) Urine Ketones Urine Blood Urine Nitrite Urine Bilirubin Urine Urobilinogen Ur Leukocyte Esterase RPR Titer Nonreactive SKIN +FACIAL FLUSHING, CAR S1S2 RESP CTA BL EXT +TREMORS ALERT AND ORIENTED Assessment: 06/01/18 11:17 WITHDRAWAL SYNDROME Plan: CONTINUE DETOX ENCOURAGE ORAL FLUIDS CONTINUE TO MONITOR CLINICALLY
[2018-06-01] MEDS: chlordiazePOXIDE 5 MG CAPSULE PO SCH ×2 (17:27→22:09)
[2018-06-01] MEDS: THIAMINE HCL 100 MG TABLET (FP) PO SCH (22:09)
[2018-06-02] MEDS: METHADONE HCL 40 MG DISPERSABLE TABLET PO SCH (05:19)
[2018-06-02] MEDS: chlordiazePOXIDE 5 MG CAPSULE PO SCH ×2 (05:19→10:15)
[2018-06-02] MEDS: LISINOPRIL 10 MG TABLET (FP) PO SCH (10:15)
[2018-06-02] MEDS: PRENATAL VITAMINS W/ FOLIC ACID TABLET (FP) PO SCH (10:15)
[2018-06-02] MEDS: BACITRACIN 0.9 GM PACKET TP SCH ×2 (10:15→22:17)
[2018-06-02] MEDS: NIFEdipine E.R 60 MG TABLET (UD) PO SCH (10:15)
[2018-06-02] MEDS: ASPIRIN 81 MG CHEWABLE TABLETS PO SCH (10:15)
[2018-06-02] MEDS: SULFAMETHOXAZOLE/TRIMETHOPRIM 800MG/160MG D.S. TABLET PO SCH ×2 (10:15→22:17)
--- NOTE | 2018-06-02 10:23 | PN ---
[facility] Progress Note Note: PATIENT TOLERATING DETOX WELL. DENIES SHAKES, N/V/D, SWEATING. Laboratory Tests 05/30/18 05/31/18 05/31/18 15:49 07:30 07:30 WBC 4.5 RBC 4.35 Hgb 13.2 Hct 40.2 MCV 92.3 MCH 30.4 MCHC 32.9 RDW 13.6 Plt Count 135 MPV 8.1 Sodium 142 Potassium 3.0 L Chloride 105 Carbon Dioxide 29 Anion Gap 8 BUN 10 Creatinine 0.6 Creat Clearance w eGFR > 60 Random Glucose 104 Calcium 8.9 Total Bilirubin 0.7 AST 44 H ALT 47 Alkaline Phosphatase 94 Total Protein 7.7 Albumin 3.5 Urine Color Ltyellow Urine Appearance Clear Urine pH 6.0 Ur Specific [place] 1.011 Urine Protein Negative Urine Glucose (UA) Negative Urine Ketones Negative Urine Blood Negative Urine Nitrite Negative Urine Bilirubin Negative Urine Urobilinogen Negative Ur Leukocyte Esterase Negative RPR Titer 05/31/18 06/01/18 07:30 07:00 WBC RBC Hgb Hct MCV MCH MCHC RDW Plt Count MPV Sodium Potassium 4.1 Chloride Carbon Dioxide Anion Gap BUN Creatinine Creat Clearance w eGFR Random Glucose Calcium Total Bilirubin AST ALT Alkaline Phosphatase Total Protein Albumin Urine Color Urine Appearance Urine pH Ur Specific [place] Urine Protein Urine Glucose (UA) Urine Ketones Urine Blood Urine Nitrite Urine Bilirubin Urine Urobilinogen Ur Leukocyte Esterase RPR Titer Nonreactive Vital Signs Temperature 97.2 F L 06/02/18 09:37 Pulse Rate 116 H 06/02/18 09:37 Respiratory Rate 148 H 06/02/18 09:37 Blood Pressure 127/78 06/02/18 09:37 O2 Sat by Pulse Oximetry (%) SKIN +FLUSHED, WARM AND DRY ALERT AND ORIENTED X 3 EXT FULL ROM AMB AD PAO CONTINUE DETOX ORAL FLUIDS ENCOURAGED FOR D/C HOME IN THE MORNING PATIENT TO ATTEND OUT PATIENT AA UPON D/C
[2018-06-02] MEDS: chlordiazePOXIDE HCL 10 MG CAPSULE PO SCH ×2 (17:35→22:17)
[2018-06-02] MEDS: THIAMINE HCL 100 MG TABLET (FP) PO SCH (22:17)
[2018-06-03] MEDS: chlordiazePOXIDE HCL 10 MG CAPSULE PO SCH (05:21)
[2018-06-03] MEDS: METHADONE HCL 40 MG DISPERSABLE TABLET PO SCH (05:21)
[2018-06-03 10:12] VITALS: BP 139/92; PULSE 106; TEMP 99.1
--- NOTE | 2018-06-03 11:02 | DS ---
[facility] Detox Discharge Summary Admission Date: 05/30/18 Discharge Date: 06/03/18 - History Present History: Alcohol Dependence - Physical Exam Results Vital Signs: Vital Signs Temperature 99.1 F 06/03/18 10:11 Pulse Rate 106 H 06/03/18 10:11 Respiratory Rate 18 06/03/18 10:11 Blood Pressure 139/92 06/03/18 10:11 O2 Sat by Pulse Oximetry (%) Pertinent Admission Physical Exam Findings: PATIENT TOLERATED DETOX WELL. ALERT AND ORIENTED X 3. SKIN WARM AND DRY. AMB AD PAO. PATIENT DENIES SI/HI. MEDICALLY STABLE. PATIENT ENCOURAGED TO FOLLOW UP WITH OUTPATIENT METHADONE PROGRAM UPON DISCHARGE AND TO CONTINUE WITH GROUP MEETINGS TO PREVENT RELAPSE. PATIENT ENCOURAGED TO SEEK MEDICAL ATTENTION IF WITHDRAWAL SYMPTOMS OCCUR AND TO FOLLOW UP WITH PCP WITHIN ONE WEEK OF DISCHARGE. DISCHARGE INSTRUCTIONS PROVIDED TO PATIENT BY STAFF. - Treatment Hospital Course: Detox Protocol Followed, Detoxed Safely, Responded well, Discharged Condition Good, Rehab Referral Accepted Patient has Accepted a Rehab Referral to: FOLLOW UP WITH OUT PATIENT METHADONE PROGRAM/AA - Medication Discharge Medications: Ambulatory Orders Methadone [Dolophine -] 40 mg PO DAILY 08/31/17 Aspirin Coated [Ecotrin -] 81 mg PO DAILY #30 tablet.ec 09/04/17 Ibuprofen 600 mg PO Q6H PRN 05/30/18 Sulfamethoxazole/Trimethoprim [Bactrim Ds -] 1 tab PO BID 05/30/18 Aspirin [ASA -] 81 mg PO DAILY #30 tab.chew 06/02/18 Lisinopril [Zestril] 10 mg PO DAILY #30 tablet 06/02/18 Nifedipine ER [Procardia XL -] 60 mg PO DAILY #30 tab.er.24 06/02/18 - Diagnosis (1) Alcohol dependence with uncomplicated withdrawal Status: Resolved - AMA Did Patient Leave Against Medical Advice: No
== END 2018-06-03 10:23 | disposition home or self-care (01) | DRG 773 ==
LOC: YASAS 09:51 → Y3N 11:14
PROC: HZ2ZZZZ Detoxification Services for Substance Abuse Treatment (ICD-10-PCS; principal; 2018-05-30)
DX: F10.230 Alcohol dependence with withdrawal, uncomplicated (principal); F11.20 Opioid dependence, uncomplicated; I10 Essential (primary) hypertension; E87.6 Hypokalemia; G62.9 Polyneuropathy, unspecified; L97.529 Non-pressure chronic ulcer of other part of left foot with unspecified severity; L97.519 Non-pressure chronic ulcer of other part of right foot with unspecified severity; M13.862 Other specified arthritis, left knee; M13.861 Other specified arthritis, right knee; Z89.412 Acquired absence of left great toe; Z89.411 Acquired absence of right great toe; Z89.422 Acquired absence of other left toe(s); Z89.421 Acquired absence of other right toe(s); Z91.14 Patient's other noncompliance with medication regimen; Z87.891 Personal history of nicotine dependence
CPT/HCPCS: 36415; 80053; 81003; 84132; 85027; 86593; 90688; 93005; 93010; G0008

== ENCOUNTER 2018-06-21 20:30 | Inpatient (IN) | payer OTHER ==
[2018-06-21 20:52] VITALS: BMI 34.1
--- NOTE | 2018-06-21 21:17 | HP ---
CIWA Score - CIWA Score Nausea/Vomitin-No Nausea/No Vomiting Muscle Tremors: 2 Anxiety: 3 Agitation: 2 Paroxysmal Sweats: 1-Minimal Palms Moist Orientation: 0-Oriented Tacttile Disturbances: 2-Mild Itch/Numbness/Burn Auditory Disturbances: 0-None Visual Disturbances: 1-Very Mild Sensitivity Headache: 0-None Present CIWA-Ar Total Score: 11 Admission ROS BHS - HPI Chief Complaint: " I relapse, I need help " alcohol withdrawal sx Allergies/Adverse Reactions: Allergies Allergy/AdvReac Type Severity Reaction Status Date / Time No Known Allergies Allergy Verified 05/30/18 10:09 History of Present Illness: Patient is a 57 yo male with hx of alcohol dependence is here seeking detox and withdrawal sx, reports relapse after last detox treatment at [facility] 05/30/18 -07/11. Currently linked to MMTP at [facility] on 40 mg last medicated today. Hx of EOTH relapsed syncope. Denies hx of seizures. PMHX: neuropathy, Hep C, HTN (non-compliance with meds, s/p amputation of right big toe and second toe in 2012, s/p amputation of left big toe and second toe in 2016 ulcer of right foot in 2017, ulcer left 5th toe for 4 weeks, anxiety. Denies suicidal / homicidal ideation at this time or hx of suicide attempt. Denies any legal troubles at this time. Exam Limitations: No Limitations - Ebola screening Have you traveled outside of the country in the last 21 days: No (N) Have you had contact with anyone from an Ebola affected area: No Have you been sick,other than usual withdrawal symptoms: No Do you have a fever: No - Review of Systems Constitutional: Chills, Changes in sleep, Other (fatigue) EENT: reports: No Symptoms Reported Respiratory: reports: No Symptoms reported Cardiac: reports: No Symptoms Reported GI: reports: Poor Fluid Intake, Indigestion, Other (flactulance) : reports: No Symptoms Reported Musculoskeletal: reports: Joint Pain (b/l knee) Integumentary: reports: See HPI Neuro: reports: See HPI, Numbness (both lower extremities), Tingling Endocrine: reports: Increased Thirst Hematology: reports: No Symptoms Reported Psychiatric: reports: Orientated x3, Anxious Other Systems: Reviewed and Negative Patient History - Patient Medical History Hx Anemia: No Hx Asthma: No Hx Chronic Obstructive Pulmonary Disease (COPD): No Hx Cancer: No Hx Cardiac Disorders: No Hx Hypertension: Yes (ON MEDS non compliance) Hx Hypercholesterolemia: No Hx Pacemaker: No HX Cerebrovascular Accident: No Hx Seizures: No Hx Diabetes: No Hx Gastrointestinal Disorders: No Hx Liver Disease: No Hx Genitourinary Disorders: No Hx Sexually Transmitted Disorders: No Hx Renal Disease (ESRD): No Hx Thyroid Disease: No Hx Human Immunodeficiency Virus (HIV): No (NEGATIVE HX) Hx Hepatitis C: Yes (BUT NOW CONVERTED TO NEGATIVE AFTER SOMETIMES) Hx Depression: No Hx Suicide Attempt: No (DENIES) Hx Schizophrenia: No - Patient Surgical History Past Surgical History: Yes Hx Neurologic Surgery: No Hx Cataract Extraction: No Hx Cardiac Surgery: No Hx Lung Surgery: No Hx Breast Surgery: No Hx Breast Biopsy: No Hx Abdominal Surgery: No Hx Appendectomy: No Hx Cholecystectomy: No Hx Genitourinary Surgery: No Hx Section: No Hx Orthopedic Surgery: Yes (amputation B/L FOOT IST AND ) Other Surgical History: BROKEN L knee, x3 SX 20 YEARS AGO Anesthesia Reaction: No - PPD History Previous Implant?: No Documented Results: Negative w/proof Date: 09/02/17 Results: NEGATIVE PPD to be Administered?: No - Smoking Cessation Smoking history: Former smoker Have you smoked in the past 12 months: No If you are a former smoker, when did you quit?: 2016 Hx Chewing Tobacco Use: No Initiated information on smoking cessation: No - Substance & Tx. History Hx Alcohol Use: Yes Hx Substance Use: Yes Substance Use Type: Alcohol Hx Substance Use Treatment: Yes (Detox [facility] 05/30/18 -06/03/18) - Substances Abused Alcohol Route: Oral Frequency: Daily Amount used: 15 - 20 beers x 24 oz Age of first use: 16 Date of Last Use: 06/21/18 Family Disease History - Family Disease History Family Disease History: CA: Father (HTN-), Brother (HTN;ALCOHOLISM;), Sister (BREAST), Other: Father, Brother Admission Physical Exam BHS - Vital Signs Vital Signs: Vital Signs - 24 hr 06/21/18 20:47 Temperature 98.6 F Pulse Rate 96 H Respiratory 18 Rate Blood Pressure 130/86 - Physical General Appearance: Yes: Disheveled, Alcohol on Breath, Irritable, Sweating HEENTM: Yes: EOMI, Hearing grossly Normal, Normal ENT Inspection, Normocephalic , Normal Voice, MARLA, Pharynx Normal, Tm's normal, Other (cheilithis, poor dentition) Respiratory: Yes: Chest Non-Tender, Lungs Clear, Normal Breath Sounds, No Respiratory Distress, No Accessory Muscle Use Neck: Yes: Within Normal Limits Breast: Yes: Breast Exam Deferred Cardiology: Yes: Regular Rhythm, Regular Rate Abdominal: Yes: Normal Bowel Sounds, Non Tender, Protuberent Genitourinary: Yes: Within Normal Limits Back: Yes: Normal Inspection Musculoskeletal: Yes: full range of Motion, Gait Steady, Pelvis Stable, Other (b /l knee pain) Extremities: Yes: Normal Capillary Refill, Normal Inspection, Normal Range of Motion, Non-Tender, Other (amputation left and right great toe, amputation left and right second toe bilaterlly ulcer of righ foot 1x1 cm clean ulcer of left 5th toe) 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, Fully Oriented, Motor Strength 5/5, Depressed Affect Integumentary: Yes: Normal Color Lymphatic: Yes: Within Normal Limits - Diagnostic (1) Arthritis of both knees Current Visit: Yes Status: Acute (2) History of amputation of great toe Current Visit: Yes Status: Acute (3) 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 Current Visit: Yes Status: Chronic (4) 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 Current Visit: Yes Status: Acute (5) Ulcer of foot Current Visit: Yes Status: Chronic Qualifiers: Laterality: left (6) Hypertension Current Visit: Yes Status: Chronic Qualifiers: Hypertension type: essential hypertension Qualified Code(s): I10 - Essential (primary) hypertension (7) Methadone maintenance therapy patient Current Visit: Yes Status: Chronic Comment: on MMTP 40 mg, dose pending verification (8) Alcohol dependence with uncomplicated withdrawal Current Visit: Yes Status: Acute (9) Obese Current Visit: Yes Status: Chronic Qualifiers: Obesity type: unspecified obesity type Obesity classification: adult class 1 (BMI 30 - 34.9) Body mass index: BMI 34.0-34.9 Cleared for Admission [facility] - Detox or Rehab [facility] Level of Care: Medically Managed Detox Regimen/Protocol: Librium BHS Breath Alcohol Content Breath Alcohol Content: 0.278 Urine Drug Screen - Results Drug Screen Negative: No Urine Drug Screen Results: BZO-Benzodiazepines, MTD-Methadone
[2018-06-21] MEDS ORDERED: MAGNESIUM HYDROX 2400MG/30ML ORAL SUSPENSION 30 ML CUP PO PRN (21:47)
[2018-06-21] MEDS ORDERED: chlordiazePOXIDE HCL 25 MG CAPSULE PO PRN (21:47)
[2018-06-21] MEDS ORDERED: guaiFENesin/D-METHORPHAN HB 10 ML UNIT-DOSE CUPS PO PRN (21:47)
[2018-06-21] MEDS ORDERED: P-EPHED 60MG/TRIPROLIDI 2.5MG TABLET PO PRN (21:47)
[2018-06-21] MEDS ORDERED: LOPERAMIDE HCL 2 MG CAPSULE PO PRN (21:47)
[2018-06-21] MEDS ORDERED: MENTHOL/PHENOL 1 EACH UD MM PRN (21:47)
[2018-06-21] MEDS ORDERED: MAGNESIUM CITRATE 300 ML BOTTLE PO PRN (21:47)
[2018-06-21] MEDS ORDERED: MAG HYDROX/AL HYDROX/SIMETH 30 ML UNIT-DOSE CUP PO PRN (21:47)
[2018-06-21] MEDS ORDERED: ACETAMINOPHEN 325 MG TABLET (FP) PO PRN (21:47)
[2018-06-21] MEDS ORDERED: MELATONIN 5 MG TABLETS PO PRN (22:00)
[2018-06-21] MEDS: BACITRACIN 0.9 GM PACKET TP SCH (23:10)
[2018-06-21] MEDS: THIAMINE HCL 100 MG TABLET (FP) PO SCH (23:10)
[2018-06-21] MEDS: chlordiazePOXIDE HCL 25 MG CAPSULE PO SCH (23:10)
[2018-06-21 23:17] LABS: URINE APPEARANCE CLEAR; URINE BILIRUBIN NEGATIVE (<2.0 mg/dL); URINE COLOR STRAW; URINE GLUCOSE (UA) NEGATIVE (NEGATIVE); URINE KETONE NEGATIVE (NEGATIVE); URINE LEUK ESTERASE NEGATIVE (NEGATIVE); URINE NITRITE NEGATIVE (NEGATIVE); URINE PROTEIN NEGATIVE (NEGATIVE); URINE UROBILINOGEN NEGATIVE mg/dL (0.2-1.0)
[2018-06-22] MEDS: chlordiazePOXIDE HCL 25 MG CAPSULE PO SCH ×4 (05:45→22:18)
[2018-06-22] MEDS ORDERED: cloNIDine HCL 0.1 MG TABLET PO ONE ×2 (07:04→17:30)
--- NOTE | 2018-06-22 07:07 | PN ---
BHS Progress Note Note: Patient's b lood pressure is B/P 175/111. Patient is asymptomatic Vital Signs Temperature 97.4 F L 06/22/18 06:03 Pulse Rate 18 L 06/22/18 06:03 Respiratory Rate 97 H 06/22/18 06:03 Blood Pressure 175/111 H 06/22/18 06:03 O2 Sat by Pulse Oximetry (%) Action: Clonidine 0.1mg tablet ordered
[2018-06-22] MEDS: METHADONE HCL 40 MG DISPERSABLE TABLET PO SCH (07:42)
[2018-06-22 10:16] LABS: MCH 29.8 pg (25.7-33.7); MCHC 32.4 g/dl (32.0-35.9); MEAN CELL VOLUME 91.9 fl (80-96); PLATELET COUNT 120 K/MM3 (134-434); RBC 4.03 M/mm3 (4.00-5.60); RDW 13.5 % (11.9-15.9); WHITE BLOOD COUNT 4.3 K/mm3 (4.0-10.0)
[2018-06-22] MEDS: ASPIRIN 81 MG CHEWABLE TABLETS PO SCH (10:19)
[2018-06-22] MEDS: LISINOPRIL 10 MG TABLET (FP) PO SCH (10:19)
[2018-06-22] MEDS: NIFEdipine E.R 60 MG TABLET (UD) PO SCH (10:19)
[2018-06-22] MEDS: PRENATAL VITAMINS W/ FOLIC ACID TABLET (FP) PO SCH (10:19)
[2018-06-22] MEDS: BACITRACIN 0.9 GM PACKET TP SCH ×2 (10:19→22:17)
[2018-06-22 10:43] LABS: ALBUMIN 3.6 g/dl (3.4-5.0); ALK PHOS 88 U/L (45-117); ANION GAP 10 MMOL/L (8-16); BILIRUBIN,TOTAL 0.3 mg/dL (0.2-1); BLOOD UREA NITROGEN 15 mg/dL (7-18); CALCIUM 8.7 mg/dL (8.5-10.1); CHLORIDE 106 mmol/L (98-107); CO2 27 mmol/L (21-32); CREATININE 0.7 mg/dL (0.55-1.3); GLUCOSE,RANDOM 91 mg/dL (74-106); POTASSIUM 3.9 mmol/L (3.5-5.1); SGOT/AST 49 U/L (15-37); SGPT/ALT 49 U/L (13-61); SODIUM 143 mmol/L (136-145); TOT PROT 7.6 g/dl (6.4-8.2)
--- NOTE | 2018-06-22 10:55 | PN ---
[facility] CIWA - CIWA Score Nausea/Vomitin-No Nausea/No Vomiting Muscle Tremors: 2 Anxiety: 2 Agitation: 2 Paroxysmal Sweats: No Perspiration Orientation: 0-Oriented Tacttile Disturbances: 3-Moderate Itch/Numb/Burn Auditory Disturbances: 0-None Visual Disturbances: 0-None Headache: 0-None Present CIWA-Ar Total Score: 9 S Progress Note (SOAP) Subjective: PATIENT C/O SHAKES, ANXIETY AND NUMBNESS/TINGLING TO FEET. Objective: 06/22/18 10:50 Laboratory Tests 06/21/18 06/22/18 06/22/18 22:00 06:30 06:30 WBC 4.3 RBC 4.03 Hgb 12.0 Hct 37.0 MCV 91.9 MCH 29.8 MCHC 32.4 RDW 13.5 Plt Count 120 L MPV 8.0 Sodium 143 Potassium 3.9 Chloride 106 Carbon Dioxide 27 Anion Gap 10 BUN 15 Creatinine 0.7 Creat Clearance w eGFR > 60 Random Glucose 91 Calcium 8.7 Total Bilirubin 0.3 AST 49 H ALT 49 Alkaline Phosphatase 88 Total Protein 7.6 Albumin 3.6 Urine Color Straw Urine Appearance Clear Urine pH 6.0 Ur Specific [place] 1.005 L Urine Protein Negative Urine Glucose (UA) Negative Urine Ketones Negative Urine Blood Negative Urine Nitrite Negative Urine Bilirubin Negative Urine Urobilinogen Negative Ur Leukocyte Esterase Negative SKIN WARM AND DRY ALERT AND ORIENTED X 3 CAR S1S2 RESP CTA BL EXT + BILATERAL GREAT TOE AMPUTATIONS. +PLANTAR CALLOUSES B/L, BILATERAL PINKY TOES+REDNESS AND TENDER. Assessment: 06/22/18 10:52 WITHDRAWAL SX GREAT TOE AMPUTATIONS B/L CELLULITIS OF 5TH PINKY TOES Plan: CONTINUE DETOX REGIMEN ENCOURAGE ORAL FLUIDS START KEFLEX 250MG PO QID X 7 DAYS CONTINUE TO MONITOR CLINICALLY
[2018-06-22] MEDS: CEPHALEXIN MONOHYDRATE 250 MG CAPSULE (FP) PO SCH ×3 (12:56→23:03)
--- NOTE | 2018-06-22 16:06 | EKG ---
Test Reason : Blood Pressure : / mmHG Vent. Rate : 073 BPM Atrial Rate : 073 BPM P-R Int : 128 ms QRS Dur : 108 ms QT Int : 436 ms P-R-T Axes : 046 -38 009 degrees QTc Int : 480 ms NORMAL SINUS RHYTHM LEFT AXIS DEVIATION PROLONGED QT ABNORMAL ECG WHEN COMPARED WITH ECG OF 21-JUN-2018 22:53, NO SIGNIFICANT CHANGE WAS FOUND Confirmed by MD JOJO, SAIDA ([id number]) on 06/22/2018 4:05:52 PM Referred By: Confirmed By:SAIDA URIBE MD
--- NOTE | 2018-06-22 16:07 | EKG ---
Test Reason : Blood Pressure : / mmHG Vent. Rate : 093 BPM Atrial Rate : 093 BPM P-R Int : 130 ms QRS Dur : 114 ms QT Int : 388 ms P-R-T Axes : 055 -48 037 degrees QTc Int : 482 ms NORMAL SINUS RHYTHM LEFT ANTERIOR FASCICULAR BLOCK PROLONGED QT ABNORMAL ECG WHEN COMPARED WITH ECG OF 30-MAY-2018 12:08, NO SIGNIFICANT CHANGE WAS FOUND Confirmed by MD JOJO, SAIDA ([id number]) on 06/22/2018 4:06:41 PM Referred By: Confirmed By:SAIDA URIBE MD
--- NOTE | 2018-06-22 17:03 | PN ---
S Progress Note Note: Vital Signs Temperature 97.5 F L 06/22/18 13:31 Pulse Rate 89 06/22/18 16:30 Respiratory Rate 19 06/22/18 16:30 Blood Pressure 157/98 06/22/18 13:31 O2 Sat by Pulse Oximetry (%) recent BP 168/115 left arm, 166/110 right arm asymptomatic one time clonidine 0.1 mg ordered increase fluids continue to monitor
[2018-06-22] MEDS: THIAMINE HCL 100 MG TABLET (FP) PO SCH (22:17)
[2018-06-23] MEDS: IBUPROFEN 400 MG TABLET (FP) PO PRN (03:20)
[2018-06-23] MEDS: METHADONE HCL 40 MG DISPERSABLE TABLET PO SCH (05:08)
[2018-06-23] MEDS: CEPHALEXIN MONOHYDRATE 250 MG CAPSULE (FP) PO SCH ×4 (05:08→23:03)
[2018-06-23] MEDS: chlordiazePOXIDE HCL 25 MG CAPSULE PO SCH ×3 (05:08→17:36)
[2018-06-23] MEDS: LISINOPRIL 10 MG TABLET (FP) PO SCH (10:11)
[2018-06-23] MEDS: BACITRACIN 0.9 GM PACKET TP SCH ×2 (10:11→22:12)
[2018-06-23] MEDS: PRENATAL VITAMINS W/ FOLIC ACID TABLET (FP) PO SCH (10:11)
[2018-06-23] MEDS: ASPIRIN 81 MG CHEWABLE TABLETS PO SCH (10:11)
[2018-06-23] MEDS: NIFEdipine E.R 60 MG TABLET (UD) PO SCH (10:11)
--- NOTE | 2018-06-23 13:14 | PN ---
S CIWA - CIWA Score Nausea/Vomitin Muscle Tremors: 3 Anxiety: 3 Agitation: 2 Paroxysmal Sweats: 2 Orientation: 0-Oriented Tacttile Disturbances: 0-None Auditory Disturbances: 0-None Visual Disturbances: 0-None Headache: 0-None Present CIWA-Ar Total Score: 12 BHS Progress Note (SOAP) Subjective: Sweating, interrupted sleep Objective: 06/23/18 13:12 Last Vital Signs Temp Pulse Resp BP Pulse Ox 96.6 F L 100 H 20 132/78 06/23/18 09:12 06/23/18 09:12 06/23/18 09:12 06/23/18 09:12 Laboratory Tests 06/21/18 06/22/18 06/22/18 22:00 06:30 06:30 WBC 4.3 RBC 4.03 Hgb 12.0 Hct 37.0 MCV 91.9 MCH 29.8 MCHC 32.4 RDW 13.5 Plt Count 120 L MPV 8.0 Sodium 143 Potassium 3.9 Chloride 106 Carbon Dioxide 27 Anion Gap 10 BUN 15 Creatinine 0.7 Creat Clearance w eGFR > 60 Random Glucose 91 Calcium 8.7 Total Bilirubin 0.3 AST 49 H ALT 49 Alkaline Phosphatase 88 Total Protein 7.6 Albumin 3.6 Urine Color Straw Urine Appearance Clear Urine pH 6.0 Ur Specific [place] 1.005 L Urine Protein Negative Urine Glucose (UA) Negative Urine Ketones Negative Urine Blood Negative Urine Nitrite Negative Urine Bilirubin Negative Urine Urobilinogen Negative Ur Leukocyte Esterase Negative RPR Titer 06/22/18 06:30 WBC RBC Hgb Hct MCV MCH MCHC RDW Plt Count MPV Sodium Potassium Chloride Carbon Dioxide Anion Gap BUN Creatinine Creat Clearance w eGFR Random Glucose Calcium Total Bilirubin AST ALT Alkaline Phosphatase Total Protein Albumin Urine Color Urine Appearance Urine pH Ur Specific [place] Urine Protein Urine Glucose (UA) Urine Ketones Urine Blood Urine Nitrite Urine Bilirubin Urine Urobilinogen Ur Leukocyte Esterase RPR Titer Nonreactive Labs reviewed Assessment: 06/23/18 13:13 Withdrawal symptoms Plan: Continue detox Encouraged PO water intake
--- NOTE | 2018-06-23 17:29 | PN ---
[facility] Progress Note Note: Vital Signs Temperature 96.8 F L 06/23/18 13:22 Pulse Rate 90 06/23/18 13:22 Respiratory Rate 20 06/23/18 13:22 Blood Pressure 159/110 H 06/23/18 17:14 O2 Sat by Pulse Oximetry (%) asymptomatic elevated BP clonidine 0.1 mg one time dose increase PO fluids continue to monitor
[2018-06-23] MEDS ORDERED: cloNIDine HCL 0.1 MG TABLET PO ONE (17:45)
[2018-06-23] MEDS: chlordiazePOXIDE 5 MG CAPSULE PO SCH (22:12)
[2018-06-23] MEDS: THIAMINE HCL 100 MG TABLET (FP) PO SCH (22:12)
[2018-06-24] MEDS: METHADONE HCL 40 MG DISPERSABLE TABLET PO SCH (05:31)
[2018-06-24] MEDS: chlordiazePOXIDE 5 MG CAPSULE PO SCH ×3 (05:32→17:37)
[2018-06-24] MEDS: CEPHALEXIN MONOHYDRATE 250 MG CAPSULE (FP) PO SCH ×4 (05:32→23:08)
--- NOTE | 2018-06-24 10:08 | PN ---
[facility] Progress Note Note: PATIENT CONTINUES WITH DETOX REGIMEN FOR ALCOHOL DEPENDENCE. STATES HE FEELS BETTER. Vital Signs Temperature 97.6 F 06/24/18 09:13 Pulse Rate 90 06/24/18 09:13 Respiratory Rate 20 06/24/18 09:13 Blood Pressure 117/86 06/24/18 09:13 O2 Sat by Pulse Oximetry (%) Laboratory Tests 06/21/18 06/22/18 06/22/18 22:00 06:30 06:30 WBC 4.3 RBC 4.03 Hgb 12.0 Hct 37.0 MCV 91.9 MCH 29.8 MCHC 32.4 RDW 13.5 Plt Count 120 L MPV 8.0 Sodium 143 Potassium 3.9 Chloride 106 Carbon Dioxide 27 Anion Gap 10 BUN 15 Creatinine 0.7 Creat Clearance w eGFR > 60 Random Glucose 91 Calcium 8.7 Total Bilirubin 0.3 AST 49 H ALT 49 Alkaline Phosphatase 88 Total Protein 7.6 Albumin 3.6 Urine Color Straw Urine Appearance Clear Urine pH 6.0 Ur Specific [place] 1.005 L Urine Protein Negative Urine Glucose (UA) Negative Urine Ketones Negative Urine Blood Negative Urine Nitrite Negative Urine Bilirubin Negative Urine Urobilinogen Negative Ur Leukocyte Esterase Negative RPR Titer 06/22/18 06:30 WBC RBC Hgb Hct MCV MCH MCHC RDW Plt Count MPV Sodium Potassium Chloride Carbon Dioxide Anion Gap BUN Creatinine Creat Clearance w eGFR Random Glucose Calcium Total Bilirubin AST ALT Alkaline Phosphatase Total Protein Albumin Urine Color Urine Appearance Urine pH Ur Specific [place] Urine Protein Urine Glucose (UA) Urine Ketones Urine Blood Urine Nitrite Urine Bilirubin Urine Urobilinogen Ur Leukocyte Esterase RPR Titer Nonreactive SKIN WARM AND DRY ALERT AND ORIENTED X 3 AMB AD PAO EXT B/L GREAT TOE AMPUTATION, B/L REDNESS TO PINKY TOES SUBSIDING, NON-TENDER. A/P: WITHDRAWAL SX CELLULITIS CONTINUE DETOX ENCOURAGE ORAL FLUIDS CONTINUE KEFLEX ORDERED CONTINUE TO MONITOR CLINICALLY
[2018-06-24] MEDS: LISINOPRIL 10 MG TABLET (FP) PO SCH (10:11)
[2018-06-24] MEDS: ASPIRIN 81 MG CHEWABLE TABLETS PO SCH (10:11)
[2018-06-24] MEDS: PRENATAL VITAMINS W/ FOLIC ACID TABLET (FP) PO SCH (10:11)
[2018-06-24] MEDS: BACITRACIN 0.9 GM PACKET TP SCH ×2 (10:11→22:41)
[2018-06-24] MEDS: NIFEdipine E.R 60 MG TABLET (UD) PO SCH (10:11)
[2018-06-24] MEDS: THIAMINE HCL 100 MG TABLET (FP) PO SCH (22:24)
[2018-06-24] MEDS: chlordiazePOXIDE HCL 10 MG CAPSULE PO SCH (22:24)
[2018-06-24] MEDS ORDERED: cloNIDine HCL 0.1 MG TABLET PO ONE (23:25)
--- NOTE | 2018-06-24 23:26 | HP ---
CIWA Score - CIWA Score Nausea/Vomitin Muscle Tremors: 3 Anxiety: 3 Agitation: 2 Paroxysmal Sweats: 2 Orientation: 0-Oriented Tacttile Disturbances: 0-None Auditory Disturbances: 0-None Visual Disturbances: 0-None Headache: 0-None Present CIWA-Ar Total Score: 12 Admission ROS S - HPI Allergies/Adverse Reactions: Allergies Allergy/AdvReac Type Severity Reaction Status Date / Time No Known Allergies Allergy Verified 06/21/18 22:02 - Ebola screening Have you traveled outside of the country in the last 21 days: No (N) Have you had contact with anyone from an Ebola affected area: No Have you been sick,other than usual withdrawal symptoms: No Do you have a fever: No Patient History - Patient Medical History Hx Anemia: No Hx Asthma: No Hx Chronic Obstructive Pulmonary Disease (COPD): No Hx Cancer: No Hx Cardiac Disorders: No Hx Hypertension: Yes (ON MEDS non compliance) Hx Hypercholesterolemia: No Hx Pacemaker: No HX Cerebrovascular Accident: No Hx Seizures: No Hx Diabetes: No Hx Gastrointestinal Disorders: No Hx Liver Disease: No Hx Genitourinary Disorders: No Hx Sexually Transmitted Disorders: No Hx Renal Disease (ESRD): No Hx Thyroid Disease: No Hx Human Immunodeficiency Virus (HIV): No (NEGATIVE HX) Hx Hepatitis C: Yes (BUT NOW CONVERTED TO NEGATIVE AFTER SOMETIMES) Hx Depression: No Hx Suicide Attempt: No (DENIES) Hx Schizophrenia: No - Patient Surgical History Past Surgical History: Yes Hx Neurologic Surgery: No Hx Cataract Extraction: No Hx Cardiac Surgery: No Hx Lung Surgery: No Hx Breast Surgery: No Hx Breast Biopsy: No Hx Abdominal Surgery: No Hx Appendectomy: No Hx Cholecystectomy: No Hx Genitourinary Surgery: No Hx Section: No Hx Orthopedic Surgery: Yes (amputation B/L FOOT IST AND ) Other Surgical History: BROKEN L knee, x3 SX 20 YEARS AGO Anesthesia Reaction: No - PPD History Previous Implant?: No Documented Results: Negative w/proof Date: 09/02/17 Results: NEGATIVE - Smoking Cessation Smoking history: Former smoker Have you smoked in the past 12 months: No If you are a former smoker, when did you quit?: 2016 Hx Chewing Tobacco Use: No Initiated information on smoking cessation: No - Substances Abused Alcohol Route: Oral Frequency: Daily Amount used: 15 - 20 beers x 24 oz Age of first use: 16 Date of Last Use: 06/21/18 Family Disease History - Family Disease History Family Disease History: CA: Father (HTN-), Brother (HTN;ALCOHOLISM;), Sister (BREAST), Other: Father, Brother Admission Physical Exam BHS - Vital Signs Vital Signs: Vital Signs - 24 hr 06/24/18 06/24/18 06/24/18 00:30 06:19 06:30 Temperature 96.8 F L Pulse Rate 73 Respiratory 18 18 18 Rate Blood Pressure 131/89 06/24/18 06/24/18 06/24/18 09:13 13:11 17:21 Temperature 97.6 F 98.8 F 98.7 F Pulse Rate 90 96 H 69 Respiratory 20 20 18 Rate Blood Pressure 117/86 130/89 115/68 06/24/18 06/24/18 06/24/18 17:23 22:00 23:17 Temperature 98.7 F 98.7 F Pulse Rate 85 89 82 Respiratory 20 18 Rate Blood Pressure 142/92 159/92 165/103 H BHS Breath Alcohol Content Breath Alcohol Content: 0.161 Urine Drug Screen - Results Drug Screen Negative: No Urine Drug Screen Results: BZO-Benzodiazepines, MTD-Methadone
--- NOTE | 2018-06-24 23:27 | PN ---
S Progress Note Note: Patient's blood pressure is B/P 165/103. Patient is asymptomatic. Vital Signs Temperature 98.7 F 06/24/18 22:00 Pulse Rate 82 06/24/18 23:17 Respiratory Rate 18 06/24/18 22:00 Blood Pressure 165/103 H 06/24/18 23:17 O2 Sat by Pulse Oximetry (%) Action: Clonindine 0.1mg tablet oral ordered
[2018-06-25] MEDS: CEPHALEXIN MONOHYDRATE 250 MG CAPSULE (FP) PO SCH (05:21)
[2018-06-25] MEDS: chlordiazePOXIDE HCL 10 MG CAPSULE PO SCH ×2 (05:21→10:36)
[2018-06-25] MEDS: METHADONE HCL 40 MG DISPERSABLE TABLET PO SCH (05:21)
[2018-06-25] MEDS ORDERED: cloNIDine HCL 0.1 MG TABLET PO ONE ×2 (06:58→08:00)
--- NOTE | 2018-06-25 07:01 | PN ---
BHS Progress Note Note: Patient's blood pressure is B/P 169/113. Patient is asymptomatic Vital Signs Temperature 96.6 F L 06/25/18 06:18 Pulse Rate 72 06/25/18 06:18 Respiratory Rate 18 06/25/18 06:18 Blood Pressure 169/113 H 06/25/18 06:18 O2 Sat by Pulse Oximetry (%) Action: Clonidine 0.1mg 1 tablet oral ordered
[2018-06-25 09:30] VITALS: BP 135/96; PULSE 101; TEMP 97.3
[2018-06-25] MEDS: BACITRACIN 0.9 GM PACKET TP SCH (10:24)
[2018-06-25] MEDS: PRENATAL VITAMINS W/ FOLIC ACID TABLET (FP) PO SCH (10:24)
[2018-06-25] MEDS: ASPIRIN 81 MG CHEWABLE TABLETS PO SCH (10:24)
[2018-06-25] MEDS: NIFEdipine E.R 60 MG TABLET (UD) PO SCH (10:24)
[2018-06-25] MEDS: LISINOPRIL 10 MG TABLET (FP) PO SCH (10:24)
[2018-06-25] MEDS: IBUPROFEN 400 MG TABLET (FP) PO PRN (10:26)
--- NOTE | 2018-06-25 11:23 | DS ---
[facility] Detox Discharge Summary Admission Date: 06/21/18 Discharge Date: 06/25/18 - History Present History: Alcohol Dependence - Physical Exam Results Vital Signs: Vital Signs Temperature 97.3 F L 06/25/18 09:30 Pulse Rate 101 H 06/25/18 09:30 Respiratory Rate 18 06/25/18 09:30 Blood Pressure 135/96 06/25/18 09:30 O2 Sat by Pulse Oximetry (%) Pertinent Admission Physical Exam Findings: PATIENT TOLERATED DETOX WITHOUT ADVERSE EVENT. PATIENT MEDICALLY STABLE AND DENIES SI/HI. PATIENT ALERT AND ORIENTED X 3, SKIN WARM AND DRY, AMB AD PAO, EXT FULL ROM. PATIENT TO FOLLOW UP WITH AA AND GROUP MEETINGS TO PREVENT RELAPSE. PATIENT ADVISED TO SEEK MEDICAL ATTENTION FOR WITHDRAWAL SYMPTOMS AND TO FOLLOW UP WITH PCP WITHIN ONE WEEK OF D/C. DISCHARGE INSTRUCTIONS GIVEN TO PATIENT BY STAFF. - Treatment Hospital Course: Detox Protocol Followed, Detoxed Safely - Medication Discharge Medications: Ambulatory Orders Methadone [Dolophine -] 40 mg PO DAILY 08/31/17 Aspirin [ASA -] 81 mg PO DAILY #30 tab.chew 06/02/18 Lisinopril [Zestril] 10 mg PO DAILY #30 tablet 06/02/18 Nifedipine ER [Procardia XL -] 60 mg PO DAILY #30 tab.er.24 06/02/18 Cephalexin [Keflex] 250 mg PO QID 4 Days #16 capsule 06/24/18 - Diagnosis (1) Cellulitis and abscess of foot Status: Acute (2) Alcohol dependence with uncomplicated withdrawal Status: Resolved - AMA Did Patient Leave Against Medical Advice: No
== END 2018-06-25 10:29 | disposition home or self-care (01) | DRG 773 ==
LOC: YASAS 20:30 → Y3N 21:55
PROC: HZ2ZZZZ Detoxification Services for Substance Abuse Treatment (ICD-10-PCS; principal; 2018-06-21)
DX: F10.230 Alcohol dependence with withdrawal, uncomplicated (principal); F11.23 Opioid dependence with withdrawal; I10 Essential (primary) hypertension; G62.9 Polyneuropathy, unspecified; B18.2 Chronic viral hepatitis C; L03.116 Cellulitis of left lower limb; L03.115 Cellulitis of right lower limb; L97.521 Non-pressure chronic ulcer of other part of left foot limited to breakdown of skin; M17.0 Bilateral primary osteoarthritis of knee; E66.9 Obesity, unspecified; Z68.34 Body mass index [BMI] 34.0-34.9, adult; Z89.412 Acquired absence of left great toe; Z89.411 Acquired absence of right great toe; Z89.421 Acquired absence of other right toe(s); Z89.422 Acquired absence of other left toe(s)
CPT/HCPCS: 36415; 80053; 81003; 85027; 86593; 93005; 93010; J0735

== ENCOUNTER 2018-11-28 18:39 | Inpatient (IN) | payer OTHER ==
[2018-11-28 19:53] VITALS: BMI 31.5
--- NOTE | 2018-11-28 20:29 | HP ---
CIWA Score Nausea/Vomitin-No Nausea/No Vomiting Muscle Tremors: None Anxiety: 4-Mod. Anxious/Guarded Agitation: 4-Moderately Restless Paroxysmal Sweats: 3 Orientation: 0-Oriented Tacttile Disturbances: 0-None Auditory Disturbances: 0-None Visual Disturbances: 1-Very Mild Sensitivity Headache: 0-None Present CIWA-Ar Total Score: 12 - Admission Criteria OASAS Guidelines: Admission for Medically Managed Detox: Requires at least one of the followin. CIWA greater than 12 2. Seizures within the past 24 hours 3. Delirium tremens within the past 24 hours 4. Hallucinations within the past 24 hours 5. Acute intervention needed for co occurring medical disorder 6. Acute intervention needed for co occurring psychiatric disorder 7. Severe withdrawal that cannot be handled at a lower level of care (continued vomiting, continued diarrhea, abnormal vital signs) requiring intravenous medication and/or fluids 8. Patient presents the following: CIWA greater than 12 Admission Criteria Met: Admission criteria met Admission ROS [facility] Chief Complaint: SEEKING DETOX SERVICES TO ASSIST WITH WITHDRAWAL SX'S Allergies/Adverse Reactions: Allergies Allergy/AdvReac Type Severity Reaction Status Date / Time No Known Allergies Allergy Verified 11/28/18 19:54 History of Present Illness: 58 Y.O. MALE WITH HX/O ALCOHOLISM AND OPIOID DEPENDENCE HERE FOR DETOX. CLIENT IS SELF REFERRED HE IS KNOWN TO THIS PROGRAM. LAST ADM 06/2018. HE IS ON MMTP 40 MG AT [facility]. REPORTS SELF MEDICATED TODAY WITH TAKE HOME BOTTLE. PRESENTS TODAY WITH C/O WITHDRAWAL SX'S. CIWA 12. DENIES HX/O SEIZURES, DT'S, AVH/ SI/HI, BLACK OUTS. REPORTS LONGEST SOBRIETY 4 MONTHS, 8 YEARS AGO. LIVES WITH FAMILY CLIENT REPORTS WOUNDS TO BLE. REFER TO PE OF DOCUMENT FOR DESCRIPTION OF WOUNDS WILL ADMIT WOUNDS ARE CHRONIC NO ACUTE PATHOLOGY WILL RX KEFLEX FOR PROPHYLAXIS APPLY BACITRACIN TO BILATERAL FOOT WOUNDS AFTER NORMAL SALINE WASH AND COVER WITH DRY DRESSING DAILY CONT TO MONITOR CLINICALLY Exam Limitations: No Limitations - Ebola screening Have you traveled outside of the country in the last 21 days: No (N) Have you had contact with anyone from an Ebola affected area: No Do you have a fever: No - Review of Systems Constitutional: Night Sweats EENT: reports: No Symptoms Reported Respiratory: reports: No Symptoms reported Cardiac: reports: No Symptoms Reported GI: reports: Poor Fluid Intake : reports: No Symptoms Reported Musculoskeletal: reports: Joint Pain (CHRONIC R/T OA) Integumentary: reports: Flushing, Other (BLE GREAT TOE AND 2NND TOES ON BOTH FEET WITH OLD AMPUTATIONS. CLIENT NOTED WITH YELLOW CALLULSES ON BOTHE FEET WITH OPEN TUNNELLING WOUND. CORE OF BOTH WOUNDS IS PINK WITH GRANULATING TISSUE WITH MACERATED BORDERS. GOOD PEDAL PULSES NOTED TO BOTH FEET.) Neuro: reports: Numbness (CHRONIC TO BLE) Endocrine: reports: No Symptoms Reported Hematology: reports: No Symptoms Reported Psychiatric: reports: Orientated x3, Anxious, Depressed Other Systems: Reviewed and Negative Patient History - Patient Medical History Hx Anemia: No Hx Asthma: No Hx Chronic Obstructive Pulmonary Disease (COPD): No Hx Cancer: No Hx Cardiac Disorders: No Hx Hypertension: Yes (ON MEDS non compliance) Hx Hypercholesterolemia: No Hx Pacemaker: No HX Cerebrovascular Accident: No Hx Seizures: No Hx Diabetes: No Hx Gastrointestinal Disorders: No Hx Liver Disease: No Hx Genitourinary Disorders: No Hx Sexually Transmitted Disorders: No Hx Renal Disease (ESRD): No Hx Thyroid Disease: No Hx Human Immunodeficiency Virus (HIV): No Hx Hepatitis C: Yes Hx Depression: No Hx Suicide Attempt: No (DENIES) Hx Bipolar Disorder: No Hx Schizophrenia: No Other Medical History: OSTEOARTHRITIS, NEUROPATHY, BLE ULCERS/WOUNDS - Patient Surgical History Past Surgical History: Yes Hx Neurologic Surgery: No Hx Cataract Extraction: No Hx Cardiac Surgery: No Hx Lung Surgery: No Hx Breast Surgery: No Hx Breast Biopsy: No Hx Abdominal Surgery: No Hx Appendectomy: No Hx Cholecystectomy: No Hx Genitourinary Surgery: No Hx Section: No Hx Orthopedic Surgery: Yes (amputation B/L FOOT IST AND ) Other Surgical History: BROKEN L knee, x3 SX 20 YEARS AGO Anesthesia Reaction: No - PPD History Previous Implant?: Yes Documented Results: Negative w/proof Implanted On Prior R Admission?: Yes Date: 09/02/17 Results: NEGATIVE PPD to be Administered?: Yes - Smoking Cessation Smoking history: Former smoker Have you smoked in the past 12 months: No If you are a former smoker, when did you quit?: 2016 Cigars Per Day: 0 Hx Chewing Tobacco Use: No Initiated information on smoking cessation: No - Substance & Tx. History Hx Alcohol Use: Yes Hx Substance Use: Yes Substance Use Type: Alcohol Hx Substance Use Treatment: Yes ([facility]) - Substances abused Alcohol Substance route: Oral Frequency: Daily Amount used: Beer - 20 (24 oz) Age of first use: 16 Date of last use: 11/28/18 Family Disease History - Family Disease History Family Disease History: [place]: Father (HTN-), Brother (HTN;ALCOHOLISM;), Sister (BREAST), Other: Father, Brother Admission Physical Exam [facility] - Vital Signs Vital Signs: Vital Signs - 24 hr 11/28/18 19:50 Temperature 98.9 F Pulse Rate 100 H Respiratory 20 Rate Blood Pressure 160/110 H - Physical General Appearance: Yes: Tremorous (FELT), Anxious, Other (FLUSHED FACE) HEENTM: Yes: EOMI, Normocephalic, Normal Voice, MARLA, Pharynx Normal Respiratory: Yes: Chest Non-Tender, Lungs Clear, Normal Breath Sounds, No Respiratory Distress, No Accessory Muscle Use Neck: Yes: No masses,lesions,Nodules, Supple, Trachea in good position Breast: Yes: Breast Exam Deferred Cardiology: Yes: Regular Rhythm, S1, S2, Tachycardia Abdominal: Yes: Non Tender, Soft, Increased Bowel Sounds Genitourinary: Yes: Within Normal Limits Back: Yes: Normal Inspection Musculoskeletal: Yes: Other (AMPUTATIONS OF GREAT AND 2 ND TOES ON BOTH FEET.) Extremities: Yes: Normal Capillary Refill, Normal Range of Motion, Non-Tender, Tremors, Amputation (OLD AMPUTATIONS OF GREAT AND 2 ND TOES ON BOTH FEET.) Neurological: Yes: Fully Oriented, Alert, Motor Strength 5/5, Depressed Affect ( DECLIENS PSYCH CONSULTATION) Integumentary: Yes: Warm (FLSUHED), Other (BLE GREAT TOE AND 2NND TOES ON BOTH FEET WITH OLD AMPUTATIONS. CLIENT NOTED WITH YELLOW CALLULSES ON BOTHE FEET WITH OPEN TUNNELLING WOUND. CORE OF BOTH WOUNDS IS PINK WITH GRANULATING TISSUE WITH MACERATED BORDERS. 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 Current Visit: Yes Status: Chronic Comment: AMPUTATION OF 2 ND TOES TO RIGHT AND LEFT FOOT (3) Arthritis of both knees Current Visit: Yes Status: Chronic (4) Bilateral great toes ulcers Current Visit: Yes Status: Chronic Comment: RIGHT TOE> LEFT TOE (5) Hypertension Current Visit: Yes Status: Chronic Qualifiers: Hypertension type: essential hypertension Qualified Code(s): I10 - Essential (primary) hypertension (6) Methadone maintenance therapy patient Current Visit: Yes Status: Chronic Comment: on MMTP 40 mg, dose pending verification (7) Neuropathy Current Visit: Yes Status: Chronic (8) Obese Current Visit: Yes Status: Chronic Qualifiers: Obesity type: unspecified obesity type Obesity classification: adult class 1 (BMI 30 - 34.9) Body mass index: BMI 34.0-34.9 (9) Alcohol dependence with uncomplicated withdrawal Current Visit: Yes Status: Acute Cleared for Admission S - Detox or Rehab [facility] Level of Care: Medically Managed Detox Regimen/Protocol: Librium Claeared for Rehab Admission: No Breathalyzer - Breathalyzer Breathalyzer: 0.195 Urine Drug Screen - Test Device Lot number: [id number] Expiration date: 11/21/19 - Control Is test valid?: Yes - Results Drug screen NEGATIVE: No Urine drug screen results: MTD-Methadone Inpatient Rehab Admission - Rehab Decision to Admit Inpatient rehab admission?: No
[2018-11-28] MEDS ORDERED: MENTHOL/PHENOL 1 EACH UD MM PRN (20:45)
[2018-11-28] MEDS ORDERED: hydrOXYzine PAMOATE 25 MG CAPSULE (FP) PO PRN (20:45)
[2018-11-28] MEDS ORDERED: MAGNESIUM CITRATE 300 ML BOTTLE PO PRN (20:45)
[2018-11-28] MEDS ORDERED: ONDANSETRON *ODT* 4 MG TABLET SL PRN (20:45)
[2018-11-28] MEDS ORDERED: guaiFENesin 200 MG/10 ML 10 ML UNIT-DOSE CUPS PO PRN (20:45)
[2018-11-28] MEDS ORDERED: chlordiazePOXIDE HCL 25 MG CAPSULE PO PRN (20:45)
[2018-11-28] MEDS ORDERED: ACETAMINOPHEN 325 MG TABLET (FP) PO PRN ×2 (20:45)
[2018-11-28] MEDS ORDERED: MELATONIN 5 MG TABLETS PO PRN (20:45)
[2018-11-28] MEDS ORDERED: IBUPROFEN 400 MG TABLET (FP) PO PRN (20:45)
[2018-11-28] MEDS ORDERED: DICYCLOMINE HCL 10 MG CAPSULE PO PRN (20:45)
[2018-11-28] MEDS ORDERED: BISMUTH SUBSALICYLATE 524 MG/30 ML UD PO PRN (20:45)
[2018-11-28] MEDS ORDERED: P-EPHED 60MG/TRIPROLIDI 2.5MG TABLET PO PRN (20:45)
[2018-11-28] MEDS ORDERED: MAGNESIUM HYDROX 2400MG/30ML ORAL SUSPENSION 30 ML CUP PO PRN (20:45)
[2018-11-28] MEDS ORDERED: MAG HYDROX/AL HYDROX/SIMETH 30 ML UNIT-DOSE CUP PO PRN (20:45)
[2018-11-28] MEDS ORDERED: BACITRACIN 15 GM TUBE TOPICAL OINTMENT TP SCH (21:00)
[2018-11-28] MEDS: METHOCARBAMOL 500 MG TABLET PO PRN (22:30)
[2018-11-28] MEDS: LISINOPRIL 10 MG TABLET (FP) PO SCH (22:30)
[2018-11-28] MEDS: CEPHALEXIN MONOHYDRATE 500 MG CAPSULE (UD) PO SCH (22:30)
[2018-11-28] MEDS: chlordiazePOXIDE HCL 25 MG CAPSULE PO SCH (22:30)
[2018-11-28] MEDS: THIAMINE HCL 100 MG TABLET (FP) PO SCH (22:31)
[2018-11-29] MEDS: chlordiazePOXIDE HCL 25 MG CAPSULE PO SCH ×4 (05:41→22:04)
[2018-11-29] MEDS ORDERED: cloNIDine HCL 0.1 MG TABLET PO ONE ×2 (07:25→22:00)
[2018-11-29] MEDS ORDERED: METHADONE HCL 40 MG DISPERSABLE TABLET PO ONE (10:00)
[2018-11-29 10:10] LABS: HEMATOCRIT 38.7 % (35.4-49); HEMOGLOBIN 12.8 GM/dL (11.7-16.9); MCH 31.1 pg (25.7-33.7); MCHC 33.1 g/dl (32.0-35.9); MEAN CELL VOLUME 94.1 fl (80-96); MEAN PLT VOLUME 9.2 fl (7.5-11.1); PLATELET COUNT 76 K/MM3 (134-434); RBC 4.11 M/mm3 (4.00-5.60); RDW 14.6 % (11.9-15.9); WHITE BLOOD COUNT 4.2 K/mm3 (4.0-10.0)
[2018-11-29] MEDS: PRENATAL VITAMINS W/ FOLIC ACID TABLET (FP) PO SCH (10:17)
[2018-11-29] MEDS: CEPHALEXIN MONOHYDRATE 500 MG CAPSULE (UD) PO SCH ×2 (10:17→22:05)
[2018-11-29] MEDS: BACITRACIN 0.9 GM PACKET TP SCH (10:17)
[2018-11-29] MEDS: LISINOPRIL 10 MG TABLET (FP) PO SCH (10:17)
--- NOTE | 2018-11-29 10:17 | PN ---
S CIWA - CIWA Score Nausea/Vomitin-No Nausea/No Vomiting Muscle Tremors: 2 Anxiety: 1-Mildly Anxious Agitation: 2 Paroxysmal Sweats: 1-Minimal Palms Moist Orientation: 1-Uncertain about Date Tacttile Disturbances: 0-None Auditory Disturbances: 0-None Visual Disturbances: 0-None Headache: 1-Very Mild CIWA-Ar Total Score: 8 BHS Progress Note (SOAP) Subjective: patient has toes amputation both feet with neuropathy both extremities no exudation swell erythema continue keflex bid for cellulitis dressing change as ordered Objective: 11/29/18 10:19 Vital Signs Temperature 98.4 F 11/29/18 09:52 Pulse Rate 105 H 11/29/18 09:52 Respiratory Rate 18 11/29/18 09:52 Blood Pressure 132/94 11/29/18 09:52 O2 Sat by Pulse Oximetry (%) lab pending Assessment: 11/29/18 10:22 alcohol withdrawal sx amputee toes both feet Plan: continue detox dressing change toes as ordered
[2018-11-29 10:24] LABS: ALBUMIN 3.7 g/dl (3.4-5.0); ALK PHOS 124 U/L (45-117); ANION GAP 8 MMOL/L (8-16); BILIRUBIN,TOTAL 0.9 mg/dL (0.2-1); BLOOD UREA NITROGEN 15 mg/dL (7-18); CALCIUM 8.3 mg/dL (8.5-10.1); CHLORIDE 100 mmol/L (98-107); CO2 31 mmol/L (21-32); CREATININE 0.8 mg/dL (0.55-1.3); GLUCOSE,RANDOM 84 mg/dL (74-106); POTASSIUM 3.2 mmol/L (3.5-5.1); SGOT/AST 115 U/L (15-37); SGPT/ALT 93 U/L (13-61); SODIUM 139 mmol/L (136-145); TOT PROT 7.9 g/dl (6.4-8.2)
[2018-11-29 17:44] LABS: EPI CELLS 4.2 /HPF (0-5); URINE APPEARANCE CLEAR; URINE BACTERIA 1.9 /hpf (NEGATIVE); URINE BILIRUBIN NEGATIVE (NEGATIVE); URINE CASTS 57 /hpf (0-8); URINE COLOR DK YELLOW; URINE GLUCOSE (UA) NEGATIVE (NEGATIVE); URINE KETONE TRACE (NEGATIVE); URINE LEUK ESTERASE TRACE (NEGATIVE); URINE NITRITE NEGATIVE (NEGATIVE); URINE PROTEIN 2+ (NEGATIVE); URINE RBC 5 /hpf (0-4); URINE WBC 2 /hpf (0-5)
--- NOTE | 2018-11-29 21:59 | PN ---
[facility] Progress Note Note: Vital Signs Temperature 97.8 F 11/29/18 17:40 Pulse Rate 92 H 11/29/18 21:40 Respiratory Rate 19 11/29/18 17:40 Blood Pressure 155/114 H 11/29/18 21:40 O2 Sat by Pulse Oximetry (%) Asymptomatic elevated BP Patient did not receive his procardia XL, home meds reviewed and ordered give one time dose of clonidine 0.1 mg to manage elevate BP and withdrawal sx increase PO fluids repeat BP in an hour continue to monitor
[2018-11-29] MEDS: NIFEdipine E.R 60 MG TABLET (UD) PO SCH (22:04)
[2018-11-29] MEDS: THIAMINE HCL 100 MG TABLET (FP) PO SCH (22:05)
[2018-11-29] MEDS: METHOCARBAMOL 500 MG TABLET PO PRN (22:05)
[2018-11-30] MEDS: METHOCARBAMOL 500 MG TABLET PO PRN ×2 (04:06→22:17)
[2018-11-30] MEDS: chlordiazePOXIDE HCL 25 MG CAPSULE PO SCH ×3 (05:23→17:22)
[2018-11-30] MEDS: METHADONE HCL 40 MG DISPERSABLE TABLET PO SCH (05:23)
[2018-11-30] MEDS: NIFEdipine E.R 60 MG TABLET (UD) PO SCH (10:24)
[2018-11-30] MEDS: BACITRACIN 0.9 GM PACKET TP SCH (10:24)
[2018-11-30] MEDS: LISINOPRIL 10 MG TABLET (FP) PO SCH (10:24)
[2018-11-30] MEDS: PRENATAL VITAMINS W/ FOLIC ACID TABLET (FP) PO SCH (10:24)
[2018-11-30] MEDS: CEPHALEXIN MONOHYDRATE 500 MG CAPSULE (UD) PO SCH ×2 (10:24→22:14)
[2018-11-30] MEDS ORDERED: NIFEdipine E.R 60 MG TABLET (UD) PO SCH (11:28)
--- NOTE | 2018-11-30 11:36 | PN ---
[facility] CIWA - CIWA Score Nausea/Vomitin-No Nausea/No Vomiting Muscle Tremors: 1-None Visible, but [place] Anxiety: 1-Mildly Anxious Agitation: 1-Slight > Activity Paroxysmal Sweats: 1-Minimal Palms Moist Orientation: 0-Oriented Tacttile Disturbances: 0-None Auditory Disturbances: 0-None Visual Disturbances: 0-None Headache: 0-None Present CIWA-Ar Total Score: 4 BHS Progress Note (SOAP) Subjective: feeling better ambulate on hallway social with peers Objective: 11/30/18 11:32 Vital Signs Temperature 98.7 F 11/30/18 09:18 Pulse Rate 101 H 11/30/18 09:18 Respiratory Rate 18 11/30/18 09:18 Blood Pressure 105/75 11/30/18 09:18 O2 Sat by Pulse Oximetry (%) Laboratory Last Values WBC 4.2 K/mm3 (4.0-10.0) 11/29/18 07:00 RBC 4.11 M/mm3 (4.00-5.60) 11/29/18 07:00 Hgb 12.8 GM/dL (11.7-16.9) 11/29/18 07:00 Hct 38.7 % (35.4-49) 11/29/18 07:00 MCV 94.1 fl (80-96) 11/29/18 07:00 MCH 31.1 pg (25.7-33.7) 11/29/18 07:00 MCHC 33.1 g/dl (32.0-35.9) 11/29/18 07:00 RDW 14.6 % (11.9-15.9) 11/29/18 07:00 Plt Count 76 K/MM3 (134-434) L D 11/29/18 07:00 MPV 9.2 fl (7.5-11.1) D 11/29/18 07:00 Sodium 139 mmol/L (136-145) 11/29/18 07:00 Potassium 3.2 mmol/L (3.5-5.1) L 11/29/18 07:00 Chloride 100 mmol/L (98-107) 11/29/18 07:00 Carbon Dioxide 31 mmol/L (21-32) 11/29/18 07:00 Anion Gap 8 MMOL/L (8-16) 11/29/18 07:00 BUN 15 mg/dL (7-18) 11/29/18 07:00 Creatinine 0.8 mg/dL (0.55-1.3) 11/29/18 07:00 Creat Clearance w eGFR 100.00 (>60) 11/29/18 07:00 Random Glucose 84 mg/dL (74-106) 11/29/18 07:00 Calcium 8.3 mg/dL (8.5-10.1) L 11/29/18 07:00 Total Bilirubin 0.9 mg/dL (0.2-1) 11/29/18 07:00 AST 115 U/L (15-37) H 11/29/18 07:00 ALT 93 U/L (13-61) H 11/29/18 07:00 Alkaline Phosphatase 124 U/L (45-117) H 11/29/18 07:00 Total Protein 7.9 g/dl (6.4-8.2) 11/29/18 07:00 Albumin 3.7 g/dl (3.4-5.0) 11/29/18 07:00 Urine Color Dk yellow 11/28/18 22:57 Urine Appearance Clear 11/28/18 22:57 Urine pH 5.0 (5.0-8.0) 11/28/18 22:57 Ur Specific [place] 1.021 (1.010-1.035) 11/28/18 22:57 Urine Protein 2+ (NEGATIVE) H 11/28/18 22:57 Urine Glucose (UA) Negative (NEGATIVE) 11/28/18 22:57 Urine Ketones Trace (NEGATIVE) H 11/28/18 22:57 Urine Blood Negative (NEGATIVE) 11/28/18 22:57 Urine Nitrite Negative (NEGATIVE) 11/28/18 22:57 Urine Bilirubin Negative (NEGATIVE) 11/28/18 22:57 Urine Urobilinogen 1.0 mg/dL (0.2-1.0) 11/28/18 22:57 Ur Leukocyte Esterase Trace (NEGATIVE) 11/28/18 22:57 Urine WBC (Auto) 2 /hpf (0-5) 11/28/18 22:57 Urine RBC (Auto) 5 /hpf (0-4) 11/28/18 22:57 Urine Casts (Auto) 57 /hpf (0-8) 11/28/18 22:57 U Pathogenic Cast Auto Review (NEGATIVE) A* 11/28/18 22:57 U Epithel Cells (Auto) 4.2 /HPF (0-5) 11/28/18 22:57 Urine Bacteria (Auto) 1.9 /hpf (NEGATIVE) 11/28/18 22:57 RPR Titer Nonreactive (NONREACTIVE) 11/29/18 07:00 lab noted low K+ Assessment: 11/30/18 11:34 alcohol withdrawal sx Plan: continue detox
[2018-11-30] MEDS: POTASSIUM CHLORIDE ORAL LIQUID 20 MEQ/15 ML PO SCH ×2 (13:01→17:23)
[2018-11-30] MEDS ORDERED: hydrOXYzine HCL 25 MG TABLET (FP) PO PRN (18:46)
[2018-11-30] MEDS: THIAMINE HCL 100 MG TABLET (FP) PO SCH (22:14)
[2018-11-30] MEDS: chlordiazePOXIDE HCL 10 MG CAPSULE PO SCH (22:14)
[2018-11-30] MEDS ORDERED: chlordiazePOXIDE HCL 10 MG CAPSULE PO PRN (23:00)
--- NOTE | 2018-12-01 05:03 | PN ---
[facility] Progress Note Note: Patient with c/o increased swelling of of tongue. No c/o tongue problems when medicated at 0030 and awoke at 0430 with c/of thickness of tongue. Denies difficulty breathing. Vital Signs 12/01/18 12/01/18 12/01/18 03:30 04:39 05:09 Temperature 96.6 F L Pulse Rate 107 H Respiratory 18 18 Rate Blood Pressure 150/104 H Laboratory Last Values WBC 4.2 K/mm3 (4.0-10.0) 11/29/18 07:00 RBC 4.11 M/mm3 (4.00-5.60) 11/29/18 07:00 Hgb 12.8 GM/dL (11.7-16.9) 11/29/18 07:00 Hct 38.7 % (35.4-49) 11/29/18 07:00 MCV 94.1 fl (80-96) 11/29/18 07:00 MCH 31.1 pg (25.7-33.7) 11/29/18 07:00 MCHC 33.1 g/dl (32.0-35.9) 11/29/18 07:00 RDW 14.6 % (11.9-15.9) 11/29/18 07:00 Plt Count 76 K/MM3 (134-434) L D 11/29/18 07:00 MPV 9.2 fl (7.5-11.1) D 11/29/18 07:00 Sodium 139 mmol/L (136-145) 11/29/18 07:00 Potassium 3.2 mmol/L (3.5-5.1) L 11/29/18 07:00 Chloride 100 mmol/L (98-107) 11/29/18 07:00 Carbon Dioxide 31 mmol/L (21-32) 11/29/18 07:00 Anion Gap 8 MMOL/L (8-16) 11/29/18 07:00 BUN 15 mg/dL (7-18) 11/29/18 07:00 Creatinine 0.8 mg/dL (0.55-1.3) 11/29/18 07:00 Creat Clearance w eGFR 100.00 (>60) 11/29/18 07:00 Random Glucose 84 mg/dL (74-106) 11/29/18 07:00 Calcium 8.3 mg/dL (8.5-10.1) L 11/29/18 07:00 Total Bilirubin 0.9 mg/dL (0.2-1) 11/29/18 07:00 AST 115 U/L (15-37) H 11/29/18 07:00 ALT 93 U/L (13-61) H 11/29/18 07:00 Alkaline Phosphatase 124 U/L (45-117) H 11/29/18 07:00 Total Protein 7.9 g/dl (6.4-8.2) 11/29/18 07:00 Albumin 3.7 g/dl (3.4-5.0) 11/29/18 07:00 Urine Color Dk yellow 11/28/18 22:57 Urine Appearance Clear 11/28/18 22:57 Urine pH 5.0 (5.0-8.0) 11/28/18 22:57 Ur Specific [place] 1.021 (1.010-1.035) 11/28/18 22:57 Urine Protein 2+ (NEGATIVE) H 11/28/18 22:57 Urine Glucose (UA) Negative (NEGATIVE) 11/28/18 22:57 Urine Ketones Trace (NEGATIVE) H 11/28/18 22:57 Urine Blood Negative (NEGATIVE) 11/28/18 22:57 Urine Nitrite Negative (NEGATIVE) 11/28/18 22:57 Urine Bilirubin Negative (NEGATIVE) 11/28/18 22:57 Urine Urobilinogen 1.0 mg/dL (0.2-1.0) 11/28/18 22:57 Ur Leukocyte Esterase Trace (NEGATIVE) 11/28/18 22:57 Urine WBC (Auto) 2 /hpf (0-5) 11/28/18 22:57 Urine RBC (Auto) 5 /hpf (0-4) 11/28/18 22:57 Urine Casts (Auto) 57 /hpf (0-8) 11/28/18 22:57 U Pathogenic Cast Auto Review (NEGATIVE) A* 11/28/18 22:57 U Epithel Cells (Auto) 4.2 /HPF (0-5) 11/28/18 22:57 Urine Bacteria (Auto) 1.9 /hpf (NEGATIVE) 11/28/18 22:57 RPR Titer Nonreactive (NONREACTIVE) 11/29/18 07:00 Left side of tongue is very swollen. No lesions noted. No difficulty breathing. Able to swallow water. No rash. No change of medication regimen in last 24-48 hours. Patient is being transferred to [facility] ED, to be evaluated by ENT providers.
[2018-12-01] MEDS: METHADONE HCL 40 MG DISPERSABLE TABLET PO SCH (05:13)
[2018-12-01] MEDS: chlordiazePOXIDE HCL 10 MG CAPSULE PO SCH ×3 (07:25→17:38)
--- NOTE | 2018-12-01 09:30 | DS ---
[facility] Detox Discharge Summary Admission Date: 11/28/18 Discharge Date: 12/01/18 - History Present History: Alcohol Dependence Additional Comments: 58 years old male admitted on 11/28/18 for alcohol withdrawal stabilization had swollen tongue around 4 am today transferred to [facility] ENT the greeting card writer has not assessed nor evaluated the patient - Physical Exam Results Vital Signs: Vital Signs Temperature 96.6 F L 12/01/18 05:09 Pulse Rate 107 H 12/01/18 04:39 Respiratory Rate 18 12/01/18 04:39 Blood Pressure 150/104 H 12/01/18 04:39 O2 Sat by Pulse Oximetry (%) Pertinent Admission Physical Exam Findings: alcohol withdrawal sx Laboratory Last Values WBC 4.2 K/mm3 (4.0-10.0) 11/29/18 07:00 RBC 4.11 M/mm3 (4.00-5.60) 11/29/18 07:00 Hgb 12.8 GM/dL (11.7-16.9) 11/29/18 07:00 Hct 38.7 % (35.4-49) 11/29/18 07:00 MCV 94.1 fl (80-96) 11/29/18 07:00 MCH 31.1 pg (25.7-33.7) 11/29/18 07:00 MCHC 33.1 g/dl (32.0-35.9) 11/29/18 07:00 RDW 14.6 % (11.9-15.9) 11/29/18 07:00 Plt Count 76 K/MM3 (134-434) L D 11/29/18 07:00 MPV 9.2 fl (7.5-11.1) D 11/29/18 07:00 Sodium 139 mmol/L (136-145) 11/29/18 07:00 Potassium 3.2 mmol/L (3.5-5.1) L 11/29/18 07:00 Chloride 100 mmol/L (98-107) 11/29/18 07:00 Carbon Dioxide 31 mmol/L (21-32) 11/29/18 07:00 Anion Gap 8 MMOL/L (8-16) 11/29/18 07:00 BUN 15 mg/dL (7-18) 11/29/18 07:00 Creatinine 0.8 mg/dL (0.55-1.3) 11/29/18 07:00 Creat Clearance w eGFR 100.00 (>60) 11/29/18 07:00 Random Glucose 84 mg/dL (74-106) 11/29/18 07:00 Calcium 8.3 mg/dL (8.5-10.1) L 11/29/18 07:00 Total Bilirubin 0.9 mg/dL (0.2-1) 11/29/18 07:00 AST 115 U/L (15-37) H 11/29/18 07:00 ALT 93 U/L (13-61) H 11/29/18 07:00 Alkaline Phosphatase 124 U/L (45-117) H 11/29/18 07:00 Total Protein 7.9 g/dl (6.4-8.2) 11/29/18 07:00 Albumin 3.7 g/dl (3.4-5.0) 11/29/18 07:00 Urine Color Dk yellow 11/28/18 22:57 Urine Appearance Clear 11/28/18 22:57 Urine pH 5.0 (5.0-8.0) 11/28/18 22:57 Ur Specific [place] 1.021 (1.010-1.035) 11/28/18 22:57 Urine Protein 2+ (NEGATIVE) H 11/28/18 22:57 Urine Glucose (UA) Negative (NEGATIVE) 11/28/18 22:57 Urine Ketones Trace (NEGATIVE) H 11/28/18 22:57 Urine Blood Negative (NEGATIVE) 11/28/18 22:57 Urine Nitrite Negative (NEGATIVE) 11/28/18 22:57 Urine Bilirubin Negative (NEGATIVE) 11/28/18 22:57 Urine Urobilinogen 1.0 mg/dL (0.2-1.0) 11/28/18 22:57 Ur Leukocyte Esterase Trace (NEGATIVE) 11/28/18 22:57 Urine WBC (Auto) 2 /hpf (0-5) 11/28/18 22:57 Urine RBC (Auto) 5 /hpf (0-4) 11/28/18 22:57 Urine Casts (Auto) 57 /hpf (0-8) 11/28/18 22:57 U Pathogenic Cast Auto Review (NEGATIVE) A* 11/28/18 22:57 U Epithel Cells (Auto) 4.2 /HPF (0-5) 11/28/18 22:57 Urine Bacteria (Auto) 1.9 /hpf (NEGATIVE) 11/28/18 22:57 RPR Titer Nonreactive (NONREACTIVE) 11/29/18 07:00 - Treatment Hospital Course: Detox Protocol Followed, Responded well Patient has Accepted a Rehab Referral to: [facility] - Medication Discharge Medications: Ambulatory Orders Methadone [Dolophine -] 40 mg PO DAILY 08/31/17 Aspirin [ASA -] 81 mg PO DAILY #30 tab.chew 06/02/18 Lisinopril [Zestril] 10 mg PO DAILY #30 tablet 06/02/18 Nifedipine ER [Procardia XL -] 60 mg PO DAILY #30 tab.er.24 06/02/18 Cephalexin [Keflex] 250 mg PO QID 4 Days #16 capsule 06/24/18 - Diagnosis (1) Alcohol dependence with uncomplicated withdrawal Current Visit: Yes Status: Acute (2) 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
--- NOTE | 2018-12-01 10:00 | PN ---
[facility] CIWA - CIWA Score Nausea/Vomitin-No Nausea/No Vomiting Muscle Tremors: 1-None Visible, but [place] Anxiety: 1-Mildly Anxious Agitation: 0-Normal Activity Paroxysmal Sweats: No Perspiration Orientation: 0-Oriented Tacttile Disturbances: 0-None Auditory Disturbances: 0-None Visual Disturbances: 0-None Headache: 0-None Present CIWA-Ar Total Score: 2 S Progress Note (SOAP) Subjective: patient returned from [facility] no swollen tongue noted speech clearly breath ease and even skin warm pink dry, ambulate on hallway steady gait denies headache denies dizziness discontinue lisinopril may begin beta bon if calcium channel block fail Objective: 12/01/18 10:06 Vital Signs Temperature 97.6 F 12/01/18 09:55 Pulse Rate 112 H 12/01/18 09:55 Respiratory Rate 20 12/01/18 09:55 Blood Pressure 139/91 12/01/18 09:55 O2 Sat by Pulse Oximetry (%) Laboratory Last Values WBC 4.2 K/mm3 (4.0-10.0) 11/29/18 07:00 RBC 4.11 M/mm3 (4.00-5.60) 11/29/18 07:00 Hgb 12.8 GM/dL (11.7-16.9) 11/29/18 07:00 Hct 38.7 % (35.4-49) 11/29/18 07:00 MCV 94.1 fl (80-96) 11/29/18 07:00 MCH 31.1 pg (25.7-33.7) 11/29/18 07:00 MCHC 33.1 g/dl (32.0-35.9) 11/29/18 07:00 RDW 14.6 % (11.9-15.9) 11/29/18 07:00 Plt Count 76 K/MM3 (134-434) L D 11/29/18 07:00 MPV 9.2 fl (7.5-11.1) D 11/29/18 07:00 Sodium 139 mmol/L (136-145) 11/29/18 07:00 Potassium 3.2 mmol/L (3.5-5.1) L 11/29/18 07:00 Chloride 100 mmol/L (98-107) 11/29/18 07:00 Carbon Dioxide 31 mmol/L (21-32) 11/29/18 07:00 Anion Gap 8 MMOL/L (8-16) 11/29/18 07:00 BUN 15 mg/dL (7-18) 11/29/18 07:00 Creatinine 0.8 mg/dL (0.55-1.3) 11/29/18 07:00 Creat Clearance w eGFR 100.00 (>60) 11/29/18 07:00 Random Glucose 84 mg/dL (74-106) 11/29/18 07:00 Calcium 8.3 mg/dL (8.5-10.1) L 11/29/18 07:00 Total Bilirubin 0.9 mg/dL (0.2-1) 11/29/18 07:00 AST 115 U/L (15-37) H 11/29/18 07:00 ALT 93 U/L (13-61) H 11/29/18 07:00 Alkaline Phosphatase 124 U/L (45-117) H 11/29/18 07:00 Total Protein 7.9 g/dl (6.4-8.2) 11/29/18 07:00 Albumin 3.7 g/dl (3.4-5.0) 11/29/18 07:00 Urine Color Dk yellow 11/28/18 22:57 Urine Appearance Clear 11/28/18 22:57 Urine pH 5.0 (5.0-8.0) 11/28/18 22:57 Ur Specific [place] 1.021 (1.010-1.035) 11/28/18 22:57 Urine Protein 2+ (NEGATIVE) H 11/28/18 22:57 Urine Glucose (UA) Negative (NEGATIVE) 11/28/18 22:57 Urine Ketones Trace (NEGATIVE) H 11/28/18 22:57 Urine Blood Negative (NEGATIVE) 11/28/18 22:57 Urine Nitrite Negative (NEGATIVE) 11/28/18 22:57 Urine Bilirubin Negative (NEGATIVE) 11/28/18 22:57 Urine Urobilinogen 1.0 mg/dL (0.2-1.0) 11/28/18 22:57 Ur Leukocyte Esterase Trace (NEGATIVE) 11/28/18 22:57 Urine WBC (Auto) 2 /hpf (0-5) 11/28/18 22:57 Urine RBC (Auto) 5 /hpf (0-4) 11/28/18 22:57 Urine Casts (Auto) 57 /hpf (0-8) 11/28/18 22:57 U Pathogenic Cast Auto Review (NEGATIVE) A* 11/28/18 22:57 U Epithel Cells (Auto) 4.2 /HPF (0-5) 11/28/18 22:57 Urine Bacteria (Auto) 1.9 /hpf (NEGATIVE) 11/28/18 22:57 RPR Titer Nonreactive (NONREACTIVE) 11/29/18 07:00 lab noted 12/01/18 10:13 repeat K+ level today Assessment: 12/01/18 10:14 alcohol withdrawal sx allergic reaction Plan: continue alcohol detox begin benadryl 50 mg po q6h prn x 5 days zantact 150 mg po bid x 5 days prednison 50 mg po od x 5 days epi pen prn
[2018-12-01] MEDS: PRENATAL VITAMINS W/ FOLIC ACID TABLET (FP) PO SCH (10:10)
[2018-12-01] MEDS: CEPHALEXIN MONOHYDRATE 500 MG CAPSULE (UD) PO SCH ×2 (10:10→22:19)
[2018-12-01] MEDS: BACITRACIN 0.9 GM PACKET TP SCH (10:11)
[2018-12-01] MEDS ORDERED: diphenhydrAMINE HCL 50 MG CAPSULE PO PRN (10:12)
[2018-12-01] MEDS ORDERED: predniSONE 20 MG TABLET (UD) PO SCH (10:15)
[2018-12-01] MEDS ORDERED: predniSONE 40 MG, predniSONE 10 MG PO SCH (11:00)
[2018-12-01] MEDS: RANITIDINE HCL 150 MG TABLET (FP) PO SCH ×2 (13:09→22:19)
[2018-12-01] MEDS: THIAMINE HCL 100 MG TABLET (FP) PO SCH (22:19)
[2018-12-01] MEDS ORDERED: chlordiazePOXIDE HCL 10 MG CAPSULE PO SCH (23:00)
[2018-12-01 23:03] VITALS: PULSE 92
[2018-12-01] MEDS ORDERED: cloNIDine HCL 0.1 MG TABLET PO ONE (23:26)
[2018-12-02] MEDS: METHADONE HCL 40 MG DISPERSABLE TABLET PO SCH (05:04)
[2018-12-02 06:37] VITALS: BP 146/91; TEMP 96.4
--- NOTE | 2018-12-02 16:12 | DS ---
[facility] Detox Discharge Summary Admission Date: 11/28/18 Discharge Date: 12/02/18 - History Present History: Alcohol Dependence Additional Comments: 58 years old male admitted on 11/28/18 for alcohol withdrawal brittany completed detox regimen aftercare [facility] Pertinent Past History: patient agrees to return to methadone program bring in medication list and lab report to aftercare appointment - Physical Exam Results Vital Signs: Vital Signs Temperature 96.4 F L 12/02/18 06:37 Pulse Rate 92 H 12/02/18 06:37 Respiratory Rate 18 12/02/18 06:37 Blood Pressure 146/91 12/02/18 06:37 O2 Sat by Pulse Oximetry (%) Pertinent Admission Physical Exam Findings: alcohol withdrawal sx Laboratory Last Values WBC 4.2 K/mm3 (4.0-10.0) 11/29/18 07:00 RBC 4.11 M/mm3 (4.00-5.60) 11/29/18 07:00 Hgb 12.8 GM/dL (11.7-16.9) 11/29/18 07:00 Hct 38.7 % (35.4-49) 11/29/18 07:00 MCV 94.1 fl (80-96) 11/29/18 07:00 MCH 31.1 pg (25.7-33.7) 11/29/18 07:00 MCHC 33.1 g/dl (32.0-35.9) 11/29/18 07:00 RDW 14.6 % (11.9-15.9) 11/29/18 07:00 Plt Count 76 K/MM3 (134-434) L D 11/29/18 07:00 MPV 9.2 fl (7.5-11.1) D 11/29/18 07:00 Sodium 139 mmol/L (136-145) 11/29/18 07:00 Potassium 4.2 mmol/L (3.5-5.1) 12/01/18 11:40 Chloride 100 mmol/L (98-107) 11/29/18 07:00 Carbon Dioxide 31 mmol/L (21-32) 11/29/18 07:00 Anion Gap 8 MMOL/L (8-16) 11/29/18 07:00 BUN 15 mg/dL (7-18) 11/29/18 07:00 Creatinine 0.8 mg/dL (0.55-1.3) 11/29/18 07:00 Creat Clearance w eGFR 100.00 (>60) 11/29/18 07:00 Random Glucose 84 mg/dL (74-106) 11/29/18 07:00 Calcium 8.3 mg/dL (8.5-10.1) L 11/29/18 07:00 Total Bilirubin 0.9 mg/dL (0.2-1) 11/29/18 07:00 AST 115 U/L (15-37) H 11/29/18 07:00 ALT 93 U/L (13-61) H 11/29/18 07:00 Alkaline Phosphatase 124 U/L (45-117) H 11/29/18 07:00 Total Protein 7.9 g/dl (6.4-8.2) 11/29/18 07:00 Albumin 3.7 g/dl (3.4-5.0) 11/29/18 07:00 Urine Color Dk yellow 11/28/18 22:57 Urine Appearance Clear 11/28/18 22:57 Urine pH 5.0 (5.0-8.0) 11/28/18 22:57 Ur Specific Nutri[place] 1.021 (1.010-1.035) 11/28/18 22:57 Urine Protein 2+ (NEGATIVE) H 11/28/18 22:57 Urine Glucose (UA) Negative (NEGATIVE) 11/28/18 22:57 Urine Ketones Trace (NEGATIVE) H 11/28/18 22:57 Urine Blood Negative (NEGATIVE) 11/28/18 22:57 Urine Nitrite Negative (NEGATIVE) 11/28/18 22:57 Urine Bilirubin Negative (NEGATIVE) 11/28/18 22:57 Urine Urobilinogen 1.0 mg/dL (0.2-1.0) 11/28/18 22:57 Ur Leukocyte Esterase Trace (NEGATIVE) 11/28/18 22:57 Urine WBC (Auto) 2 /hpf (0-5) 11/28/18 22:57 Urine RBC (Auto) 5 /hpf (0-4) 11/28/18 22:57 Urine Casts (Auto) 57 /hpf (0-8) 11/28/18 22:57 U Pathogenic Cast Auto Review (NEGATIVE) A* 11/28/18 22:57 U Epithel Cells (Auto) 4.2 /HPF (0-5) 11/28/18 22:57 Urine Bacteria (Auto) 1.9 /hpf (NEGATIVE) 11/28/18 22:57 RPR Titer Nonreactive (NONREACTIVE) 11/29/18 07:00 lab noted - Treatment Hospital Course: Detox Protocol Followed, Detoxed Safely, Responded well, Discharged Condition Good, Rehab Referral Accepted Patient has Accepted a Rehab Referral to: [facility] - Medication Discharge Medications: Ambulatory Orders Methadone [Dolophine -] 40 mg PO DAILY 08/31/17 Aspirin [ASA -] 81 mg PO DAILY #30 tab.chew 06/02/18 Nifedipine ER [Procardia XL -] 60 mg PO DAILY #30 tab.er.24 06/02/18 Cephalexin [Keflex] 250 mg PO QID 4 Days #16 capsule 06/24/18 - Diagnosis (1) Alcohol dependence with uncomplicated withdrawal Status: Acute (2) 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
== END 2018-12-02 09:37 | disposition home or self-care (01) | DRG 773 ==
LOC: YASAS 18:39 → Y3N 21:24
PROVIDERS: ADMIT Surgery; ATTEND Surgery
PROC: HZ2ZZZZ Detoxification Services for Substance Abuse Treatment (ICD-10-PCS; principal; 2018-11-28)
DX: F10.230 Alcohol dependence with withdrawal, uncomplicated (principal); F11.20 Opioid dependence, uncomplicated; L97.528 Non-pressure chronic ulcer of other part of left foot with other specified severity; L97.518 Non-pressure chronic ulcer of other part of right foot with other specified severity; R00.0 Tachycardia, unspecified; I10 Essential (primary) hypertension; G62.9 Polyneuropathy, unspecified; L03.032 Cellulitis of left toe; L03.031 Cellulitis of right toe; M17.0 Bilateral primary osteoarthritis of knee; B19.20 Unspecified viral hepatitis C without hepatic coma; E66.9 Obesity, unspecified; R22.0 Localized swelling, mass and lump, head; T78.40XA Allergy, unspecified, initial encounter; X58.XXXA Exposure to other specified factors, initial encounter; Z89.412 Acquired absence of left great toe; Z89.411 Acquired absence of right great toe; Z89.422 Acquired absence of other left toe(s); Z89.421 Acquired absence of other right toe(s); Z91.14 Patient's other noncompliance with medication regimen; Z87.891 Personal history of nicotine dependence; Z68.31 Body mass index [BMI] 31.0-31.9, adult
CPT/HCPCS: 36415; 80053; 81003; 84132; 85027; 86593; J0735

== ENCOUNTER 2018-12-19 21:33 | Inpatient (IN) | payer OTHER ==
[2018-12-19 22:26] VITALS: BMI 32.1
--- NOTE | 2018-12-19 22:53 | HP ---
CIWA Score Nausea/Vomitin Muscle Tremors: 3 Anxiety: 2 Agitation: 4-Moderately Restless Paroxysmal Sweats: 2 Orientation: 0-Oriented Tacttile Disturbances: 1-Very Mild Itch/Numbness Auditory Disturbances: 0-None Visual Disturbances: 0-None Headache: 0-None Present CIWA-Ar Total Score: 14 - Admission Criteria OASAS Guidelines: Admission for Medically Managed Detox: Requires at least one of the followin. CIWA greater than 12 2. Seizures within the past 24 hours 3. Delirium tremens within the past 24 hours 4. Hallucinations within the past 24 hours 5. Acute intervention needed for co occurring medical disorder 6. Acute intervention needed for co occurring psychiatric disorder 7. Severe withdrawal that cannot be handled at a lower level of care (continued vomiting, continued diarrhea, abnormal vital signs) requiring intravenous medication and/or fluids 8. Admission ROS [facility] Chief Complaint: Alcohol withdrawal symptoms Allergies/Adverse Reactions: Allergies Allergy/AdvReac Type Severity Reaction Status Date / Time lisinopril Allergy Verified 12/01/18 10:00 History of Present Illness: 58 years old male with a long history of alcohol withdrawal symptoms is seeking admission to detox. He was in detox here at [facility] 11/28/2018- 12/02/2018. He has medical history of hypertension, knee arthritis and Hep C. Patient denies suicidal ideation at this time. He is on Methadone 40mg tablet oral daily with [facility]. Dose is yet to be confirmed by the nurse. Exam Limitations: No Limitations - Ebola screening Have you traveled outside of the country in the last 21 days: No (N) Have you had contact with anyone from an Ebola affected area: No Do you have a fever: No - Review of Systems Constitutional: Chills, Malaise, Changes in sleep EENT: reports: No Symptoms Reported Respiratory: reports: No Symptoms reported Cardiac: reports: No Symptoms Reported GI: reports: Nausea, Poor Appetite, Poor Fluid Intake, Abdominal cramping : reports: No Symptoms Reported Musculoskeletal: reports: Back Pain, Muscle Pain Integumentary: reports: Dryness, Flushing Neuro: reports: Headache, Tingling, Tremors Endocrine: reports: No Symptoms Reported Hematology: reports: No Symptoms Reported Psychiatric: reports: Mood/Affect Appropiate, Orientated x3, Anxious Other Systems: Reviewed and Negative Patient History - Patient Medical History Hx Anemia: No Hx Asthma: No Hx Chronic Obstructive Pulmonary Disease (COPD): No Hx Cancer: No Hx Cardiac Disorders: No Hx Hypertension: Yes (Not on medication) Hx Hypercholesterolemia: No Hx Pacemaker: No HX Cerebrovascular Accident: No Hx Seizures: No Hx Diabetes: No Hx Gastrointestinal Disorders: No Hx Liver Disease: No Hx Genitourinary Disorders: No Hx Sexually Transmitted Disorders: No Hx Renal Disease (ESRD): No Hx Thyroid Disease: No Hx Human Immunodeficiency Virus (HIV): No Hx Hepatitis C: Yes (Not on medication) Hx Depression: No Hx Suicide Attempt: No (Denies suicidal ideation at this time) Hx Bipolar Disorder: No Hx Schizophrenia: No - Patient Surgical History Past Surgical History: Yes Hx Neurologic Surgery: No Hx Cataract Extraction: No Hx Cardiac Surgery: No Hx Lung Surgery: No Hx Breast Surgery: No Hx Breast Biopsy: No Hx Abdominal Surgery: No Hx Appendectomy: No Hx Cholecystectomy: No Hx Genitourinary Surgery: No Hx Section: No Hx Orthopedic Surgery: Yes (amputation B/L FOOT IST AND ) Other Surgical History: BROKEN L knee, x3 SX 20 YEARS AGO Anesthesia Reaction: No - PPD History Previous Implant?: Yes Documented Results: Negative w/proof Date: 11/30/18 Results: NEGATIVE PPD to be Administered?: No - Reproductive History Patient is a Female of Child Bearing Age (11 -55 yrs old): No (Male) - Smoking Cessation Smoking history: Former smoker Have you smoked in the past 12 months: No If you are a former smoker, when did you quit?: 2016 Cigars Per Day: 0 Hx Chewing Tobacco Use: No Initiated information on smoking cessation: No - Substance & Tx. History Hx Alcohol Use: Yes Hx Substance Use: Yes Substance Use Type: Prescribed Hx Substance Use Treatment: Yes ([facility]) - Substances abused Alcohol Substance route: Oral Frequency: Daily Amount used: Beer - 20 (24 oz) Age of first use: 16 Date of last use: 11/28/18 Family Disease History - Family Disease History Family Disease History: CA: Father (HTN-), Brother (HTN;ALCOHOLISM;), Sister (BREAST), Other: Father, Brother Admission Physical Exam [facility] - Vital Signs Vital Signs: Vital Signs - 24 hr 12/19/18 21:59 Temperature 98 F Pulse Rate 91 H Respiratory 20 Rate Blood Pressure 149/90 - Physical General Appearance: Yes: Moderate Distress, Alcohol on Breath, Tremorous, Irritable, Anxious HEENTM: Yes: EOMI, Normal ENT Inspection, Normal Voice, MARLA Respiratory: Yes: Lungs Clear, Normal Breath Sounds, No Respiratory Distress Neck: Yes: Supple Breast: Yes: Breast Exam Deferred Cardiology: Yes: Tachycardia Abdominal: Yes: Normal Bowel Sounds, Soft Genitourinary: Yes: Within Normal Limits Back: Yes: Normal Inspection Musculoskeletal: Yes: Muscle Pain Extremities: Yes: Tremors Neurological: Yes: Alert, Normal Mood/Affect Integumentary: Yes: Warm Lymphatic: Yes: Within Normal Limits - Diagnostic (1) Alcohol dependence with uncomplicated withdrawal Current Visit: Yes Status: Chronic (2) Arthritis of both knees Current Visit: Yes Status: Chronic (3) Hepatitis C Current Visit: Yes Status: Chronic Qualifiers: Viral hepatitis chronicity: unspecified Hepatic coma status: without hepatic coma Qualified Code(s): B19.20 - Unspecified viral hepatitis C without hepatic coma (4) Hypertension Current Visit: No Status: Chronic Qualifiers: Hypertension type: essential hypertension Qualified Code(s): I10 - Essential (primary) hypertension (5) Methadone maintenance therapy patient Current Visit: Yes Status: Chronic Comment: on MMTP 40 mg, dose pending verification (6) Neuropathy Current Visit: Yes Status: Chronic Cleared for Admission S - Detox or Rehab [facility] Level of Care: Medically Managed Detox Regimen/Protocol: Librium Breathalyzer - Breathalyzer Breathalyzer: 0.208 Urine Drug Screen - Test Device Lot number: [id number] Expiration date: 07/23/20 - Control Is test valid?: Yes - Results Drug screen NEGATIVE: No Urine drug screen results: MTD-Methadone, BZO-Benzodiazepines Inpatient Rehab Admission - Rehab Decision to Admit Inpatient rehab admission?: No
[2018-12-19] MEDS ORDERED: IBUPROFEN 400 MG TABLET (FP) PO PRN (23:03)
[2018-12-19] MEDS ORDERED: MENTHOL/PHENOL 1 EACH UD MM PRN (23:03)
[2018-12-19] MEDS ORDERED: MAGNESIUM CITRATE 300 ML BOTTLE PO PRN (23:03)
[2018-12-19] MEDS ORDERED: BISMUTH SUBSALICYLATE 524 MG/30 ML UD PO PRN (23:03)
[2018-12-19] MEDS ORDERED: chlordiazePOXIDE HCL 25 MG CAPSULE PO PRN (23:03)
[2018-12-19] MEDS ORDERED: ACETAMINOPHEN 325 MG TABLET (FP) PO PRN (23:03)
[2018-12-19] MEDS ORDERED: MAG HYDROX/AL HYDROX/SIMETH 30 ML UNIT-DOSE CUP PO PRN (23:03)
[2018-12-19] MEDS ORDERED: MAGNESIUM HYDROX 2400MG/30ML ORAL SUSPENSION 30 ML CUP PO PRN (23:03)
[2018-12-19] MEDS: chlordiazePOXIDE HCL 25 MG CAPSULE PO SCH (23:59)
[2018-12-20] MEDS: chlordiazePOXIDE HCL 25 MG CAPSULE PO SCH ×4 (05:03→22:31)
[2018-12-20] MEDS: PRENATAL VITAMINS W/ FOLIC ACID TABLET (FP) PO SCH (09:48)
[2018-12-20] MEDS: ASPIRIN 81 MG CHEWABLE TABLETS PO SCH (09:48)
[2018-12-20] MEDS ORDERED: METHADONE HCL 40 MG DISPERSABLE TABLET PO ONE (10:00)
[2018-12-20] MEDS ORDERED: NIFEdipine E.R 60 MG TABLET (UD) PO SCH (10:00)
[2018-12-20 10:19] LABS: HEMATOCRIT 37.2 % (35.4-49); HEMOGLOBIN 12.7 GM/dL (11.7-16.9); MCH 32.2 pg (25.7-33.7); MCHC 34.3 g/dl (32.0-35.9); MEAN PLT VOLUME 8.1 fl (7.5-11.1); PLATELET COUNT 88 K/MM3 (134-434); RBC 3.96 M/mm3 (4.00-5.60); RDW 14.3 % (11.9-15.9); WHITE BLOOD COUNT 4.1 K/mm3 (4.0-10.0)
[2018-12-20 10:23] LABS: ALBUMIN 3.3 g/dl (3.4-5.0); ALK PHOS 125 U/L (45-117); ANION GAP 7 MMOL/L (8-16); BILIRUBIN,TOTAL 0.5 mg/dL (0.2-1); BLOOD UREA NITROGEN 11 mg/dL (7-18); CALCIUM 8.5 mg/dL (8.5-10.1); CHLORIDE 104 mmol/L (98-107); CO2 31 mmol/L (21-32); CREATININE 0.5 mg/dL (0.55-1.3); GLUCOSE,RANDOM 82 mg/dL (74-106); POTASSIUM 3.3 mmol/L (3.5-5.1); SGOT/AST 57 U/L (15-37); SGPT/ALT 57 U/L (13-61); SODIUM 142 mmol/L (136-145); TOT PROT 7.4 g/dl (6.4-8.2)
--- NOTE | 2018-12-20 14:06 | PN ---
S CIWA - CIWA Score Nausea/Vomitin Muscle Tremors: 3 Anxiety: 3 Agitation: 0-Normal Activity Paroxysmal Sweats: No Perspiration Orientation: 0-Oriented Tacttile Disturbances: 2-Mild Itch/Numbness/Burn Auditory Disturbances: 0-None Visual Disturbances: 2-Mild Sensitivity Headache: 3-Moderate CIWA-Ar Total Score: 15 [facility] Progress Note (SOAP) Subjective: Anxious, Tremors, H/A, Nausea. Objective: PATIENT A & O X 3, OBSERVED AMBULATING ON UNIT UNASSISTED. IN NO ACUTE DISTRESS. 12/20/18 14:01 Vital Signs Temperature 98.4 F 12/20/18 13:08 Pulse Rate 110 H 12/20/18 13:08 Respiratory Rate 18 12/20/18 13:08 Blood Pressure 170/108 H 12/20/18 13:08 O2 Sat by Pulse Oximetry (%) Laboratory Tests 12/20/18 12/20/18 12/20/18 07:00 07:00 07:00 WBC 4.1 RBC 3.96 L Hgb 12.7 Hct 37.2 MCV 94.0 MCH 32.2 MCHC 34.3 RDW 14.3 Plt Count 88 L MPV 8.1 D Sodium 142 Potassium 3.3 L Chloride 104 Carbon Dioxide 31 Anion Gap 7 L BUN 11 Creatinine 0.5 L Creat Clearance w eGFR 172.01 Random Glucose 82 Calcium 8.5 Total Bilirubin 0.5 AST 57 H ALT 57 Alkaline Phosphatase 125 H Total Protein 7.4 Albumin 3.3 L RPR Titer Nonreactive LABS NOTED. PATIENT HAS HAD LOW PLATELET LEVELS ON PREVIOUS ADMISSIONS. 12/20/18 14:05 Assessment: 12/20/18 14:02 WITHDRAWAL SYMPTOMS. HTN. HYPOKALEMIA. THROMBOCYTOPENIA. WOUNDS OF BILATERAL FEET. 12/20/18 14:04 Plan: CONTINUE DETOX. INCREASE DAILY PO FLUID / WATER INTAKE. K-DUR, 20 MEQ PO BID. RE-CHECK K LEVEL ON 12/22/2018 FOR LOW ADMISSION LEVEL. INCREASE PROCARDIA XL TO 90 MG PO DAILY FOR PERSISTENTLY ELEVATED BP DESPITE TREATMENT. PATIENT REPORTS MULTIPLE WOUNDS ON BILATERAL FEET. PATIENT REPORTS HISTORY OF AMPUTATION OF 1ST AND 2ND TOES OF BILATERAL FEET DUE TO HISTORY OF NEUROPATHY AND THAT WOUNDS HAVE OCCURRED BEFORE IN PAST. MULTIPLE WOUNDS NOTED NEAR AMPUTATION STUMP SITES OF AMPUTATED 1ST AND 2ND TOES. WOUNDS APPEAR TO BE HEALING AND ARE SCABBED OVER. NO ERYTHEMA NOTED IN AREAS IMMEDIATELY SURROUNDING WOUND SITES. NO DISCHARGE NOTED AT WOUND SITES. MILD SWELLING NOTED IN BILATERAL ANKLE AREAS, BUT NO ERYTHEMA NOTED IN THOSE AREAS. NO ERYTHEMA OR SWELLING NOTED IN BILATERAL LOWER LEGS. PATIENT REPORTS PAIN AT WOUND SITES ON BILATERAL FEET, BUT HE DENIES PAIN IN ANY OTHER PART OF BILATERAL FEET, ANKLES, OR LEGS. PATIENT HAS FULL ROM OF REMAINING TOES AND OF BILATERAL FEET. START KEFLEX, 500 MG PO Q6H. CLEAN WOUND SITES WITH HS BID AND THEN APPLY SILVADENE CREAM TOPICAL TO WOUND SITES BID.
[2018-12-20] MEDS ORDERED: NIFEdipine E.R. 30 MG TABLET (FP) PO ONE (14:20)
[2018-12-20] MEDS ORDERED: POTASSIUM CHLORIDE TABS 20 MEQ TABLET.ER (FP) PO ONE (14:20)
[2018-12-20] MEDS: SILVER SULFADIAZINE 1% TOP CREAM 50 GM JAR TP SCH ×2 (15:31→22:31)
[2018-12-20] MEDS: CEPHALEXIN MONOHYDRATE 500 MG CAPSULE (UD) PO SCH ×2 (17:55→23:50)
[2018-12-20] MEDS: POTASSIUM CHLORIDE TABS 20 MEQ TABLET.ER (FP) PO SCH (17:55)
[2018-12-20] MEDS ORDERED: cloNIDine HCL 0.1 MG TABLET PO ONE ×2 (19:00)
[2018-12-20] MEDS: THIAMINE HCL 100 MG TABLET (FP) PO SCH (22:31)
[2018-12-21] MEDS: chlordiazePOXIDE HCL 25 MG CAPSULE PO SCH ×3 (05:06→17:05)
[2018-12-21] MEDS: CEPHALEXIN MONOHYDRATE 500 MG CAPSULE (UD) PO SCH ×4 (05:06→23:23)
[2018-12-21] MEDS: METHADONE HCL 40 MG DISPERSABLE TABLET PO SCH (05:06)
[2018-12-21] MEDS: ASPIRIN 81 MG CHEWABLE TABLETS PO SCH (10:05)
[2018-12-21] MEDS: NIFEdipine E.R. 90 MG TABLET (FP) PO SCH (10:06)
[2018-12-21] MEDS: PRENATAL VITAMINS W/ FOLIC ACID TABLET (FP) PO SCH (10:06)
[2018-12-21] MEDS: POTASSIUM CHLORIDE TABS 20 MEQ TABLET.ER (FP) PO SCH ×2 (10:07→17:09)
[2018-12-21] MEDS: SILVER SULFADIAZINE 1% TOP CREAM 50 GM JAR TP SCH ×2 (10:52→22:01)
--- NOTE | 2018-12-21 15:58 | PN ---
[facility] CIWA - CIWA Score Nausea/Vomitin-Mild Nausea/No Vomiting Muscle Tremors: 3 Anxiety: 3 Agitation: 2 Paroxysmal Sweats: 1-Minimal Palms Moist Orientation: 1-Uncertain about Date Tacttile Disturbances: 0-None Auditory Disturbances: 0-None Visual Disturbances: 0-None Headache: 0-None Present CIWA-Ar Total Score: 11 [facility] Progress Note (SOAP) Subjective: doing well with librium detox regimen feeling ok today social with peers in day room Objective: 12/21/18 15:59 Vital Signs Temperature 97.1 F L 12/21/18 13:21 Pulse Rate 91 H 12/21/18 13:21 Respiratory Rate 18 12/21/18 13:21 Blood Pressure 114/74 12/21/18 13:21 O2 Sat by Pulse Oximetry (%) Laboratory Last Values WBC 4.1 K/mm3 (4.0-10.0) 12/20/18 07:00 RBC 3.96 M/mm3 (4.00-5.60) L 12/20/18 07:00 Hgb 12.7 GM/dL (11.7-16.9) 12/20/18 07:00 Hct 37.2 % (35.4-49) 12/20/18 07:00 MCV 94.0 fl (80-96) 12/20/18 07:00 MCH 32.2 pg (25.7-33.7) 12/20/18 07:00 MCHC 34.3 g/dl (32.0-35.9) 12/20/18 07:00 RDW 14.3 % (11.9-15.9) 12/20/18 07:00 Plt Count 88 K/MM3 (134-434) L 12/20/18 07:00 MPV 8.1 fl (7.5-11.1) D 12/20/18 07:00 Sodium 142 mmol/L (136-145) 12/20/18 07:00 Potassium 3.3 mmol/L (3.5-5.1) L 12/20/18 07:00 Chloride 104 mmol/L (98-107) 12/20/18 07:00 Carbon Dioxide 31 mmol/L (21-32) 12/20/18 07:00 Anion Gap 7 MMOL/L (8-16) L 12/20/18 07:00 BUN 11 mg/dL (7-18) 12/20/18 07:00 Creatinine 0.5 mg/dL (0.55-1.3) L 12/20/18 07:00 Creat Clearance w eGFR 172.01 (>60) 12/20/18 07:00 Random Glucose 82 mg/dL (74-106) 12/20/18 07:00 Calcium 8.5 mg/dL (8.5-10.1) 12/20/18 07:00 Total Bilirubin 0.5 mg/dL (0.2-1) 12/20/18 07:00 AST 57 U/L (15-37) H 12/20/18 07:00 ALT 57 U/L (13-61) 12/20/18 07:00 Alkaline Phosphatase 125 U/L (45-117) H 12/20/18 07:00 Total Protein 7.4 g/dl (6.4-8.2) 12/20/18 07:00 Albumin 3.3 g/dl (3.4-5.0) L 12/20/18 07:00 RPR Titer Nonreactive (NONREACTIVE) 12/20/18 07:00 lab noted low K+ low platelate discontinue motrin Assessment: 12/21/18 16:01 withdrawal sx repeat K+ Plan: continue detox continue K+
[2018-12-21] MEDS: THIAMINE HCL 100 MG TABLET (FP) PO SCH (21:59)
[2018-12-21] MEDS: chlordiazePOXIDE HCL 10 MG CAPSULE PO SCH (21:59)
[2018-12-21] MEDS: MELATONIN 5 MG TABLETS PO PRN (22:00)
[2018-12-21] MEDS ORDERED: chlordiazePOXIDE HCL 10 MG CAPSULE PO PRN (23:00)
[2018-12-22] MEDS: hydrOXYzine PAMOATE 25 MG CAPSULE (FP) PO PRN (02:50)
[2018-12-22] MEDS: METHOCARBAMOL 500 MG TABLET PO PRN (02:50)
[2018-12-22] MEDS: ACETAMINOPHEN 325 MG TABLET (FP) PO PRN ×2 (02:51→22:15)
[2018-12-22] MEDS: CEPHALEXIN MONOHYDRATE 500 MG CAPSULE (UD) PO SCH ×4 (05:29→23:00)
[2018-12-22] MEDS: chlordiazePOXIDE HCL 10 MG CAPSULE PO SCH ×4 (05:29→22:14)
[2018-12-22] MEDS: METHADONE HCL 40 MG DISPERSABLE TABLET PO SCH (05:29)
[2018-12-22] MEDS: NIFEdipine E.R. 90 MG TABLET (FP) PO SCH (10:03)
[2018-12-22] MEDS: SILVER SULFADIAZINE 1% TOP CREAM 50 GM JAR TP SCH ×2 (10:04→22:15)
[2018-12-22] MEDS: PRENATAL VITAMINS W/ FOLIC ACID TABLET (FP) PO SCH (10:04)
[2018-12-22] MEDS: POTASSIUM CHLORIDE TABS 20 MEQ TABLET.ER (FP) PO SCH ×2 (10:04→17:14)
[2018-12-22] MEDS: ASPIRIN 81 MG CHEWABLE TABLETS PO SCH (10:04)
--- NOTE | 2018-12-22 13:27 | PN ---
S CIWA - CIWA Score Nausea/Vomitin-Mild Nausea/No Vomiting Muscle Tremors: 3 Anxiety: 1-Mildly Anxious Agitation: 2 Paroxysmal Sweats: No Perspiration Orientation: 0-Oriented Tacttile Disturbances: 0-None Auditory Disturbances: 0-None Visual Disturbances: 0-None Headache: 1-Very Mild CIWA-Ar Total Score: 8 [facility] Progress Note (SOAP) Subjective: feeling better continue K+ supplement discuss alcohol related K+ deficit Objective: 12/22/18 13:24 Vital Signs Temperature 97.4 F L 12/22/18 09:26 Pulse Rate 92 H 12/22/18 09:26 Respiratory Rate 18 12/22/18 09:26 Blood Pressure 115/82 12/22/18 09:26 O2 Sat by Pulse Oximetry (%) Laboratory Last Values WBC 4.1 K/mm3 (4.0-10.0) 12/20/18 07:00 RBC 3.96 M/mm3 (4.00-5.60) L 12/20/18 07:00 Hgb 12.7 GM/dL (11.7-16.9) 12/20/18 07:00 Hct 37.2 % (35.4-49) 12/20/18 07:00 MCV 94.0 fl (80-96) 12/20/18 07:00 MCH 32.2 pg (25.7-33.7) 12/20/18 07:00 MCHC 34.3 g/dl (32.0-35.9) 12/20/18 07:00 RDW 14.3 % (11.9-15.9) 12/20/18 07:00 Plt Count 88 K/MM3 (134-434) L 12/20/18 07:00 MPV 8.1 fl (7.5-11.1) D 12/20/18 07:00 Sodium 142 mmol/L (136-145) 12/20/18 07:00 Potassium 3.4 mmol/L (3.5-5.1) L 12/22/18 07:00 Chloride 104 mmol/L (98-107) 12/20/18 07:00 Carbon Dioxide 31 mmol/L (21-32) 12/20/18 07:00 Anion Gap 7 MMOL/L (8-16) L 12/20/18 07:00 BUN 11 mg/dL (7-18) 12/20/18 07:00 Creatinine 0.5 mg/dL (0.55-1.3) L 12/20/18 07:00 Creat Clearance w eGFR 172.01 (>60) 12/20/18 07:00 Random Glucose 82 mg/dL (74-106) 12/20/18 07:00 Calcium 8.5 mg/dL (8.5-10.1) 12/20/18 07:00 Total Bilirubin 0.5 mg/dL (0.2-1) 12/20/18 07:00 AST 57 U/L (15-37) H 12/20/18 07:00 ALT 57 U/L (13-61) 12/20/18 07:00 Alkaline Phosphatase 125 U/L (45-117) H 12/20/18 07:00 Total Protein 7.4 g/dl (6.4-8.2) 12/20/18 07:00 Albumin 3.3 g/dl (3.4-5.0) L 12/20/18 07:00 RPR Titer Nonreactive (NONREACTIVE) 12/20/18 07:00 lab noted continue K+ supplement repeat K+ Assessment: 12/22/18 13:25 mild alcohol withdrawal sx 12/22/18 13:27 Plan: continue detox
[2018-12-22] MEDS: THIAMINE HCL 100 MG TABLET (FP) PO SCH (22:14)
[2018-12-22] MEDS: MELATONIN 5 MG TABLETS PO PRN (22:15)
[2018-12-23] MEDS: hydrOXYzine PAMOATE 25 MG CAPSULE (FP) PO PRN (01:28)
[2018-12-23] MEDS: METHOCARBAMOL 500 MG TABLET PO PRN ×2 (01:28→08:55)
[2018-12-23] MEDS: ACETAMINOPHEN 325 MG TABLET (FP) PO PRN (04:18)
[2018-12-23] MEDS: METHADONE HCL 40 MG DISPERSABLE TABLET PO SCH (05:05)
[2018-12-23] MEDS: CEPHALEXIN MONOHYDRATE 500 MG CAPSULE (UD) PO SCH (05:05)
[2018-12-23 09:18] VITALS: BP 143/100; PULSE 111; TEMP 97
[2018-12-23] MEDS: ASPIRIN 81 MG CHEWABLE TABLETS PO SCH (09:54)
[2018-12-23] MEDS: NIFEdipine E.R. 90 MG TABLET (FP) PO SCH (09:54)
[2018-12-23] MEDS: POTASSIUM CHLORIDE TABS 20 MEQ TABLET.ER (FP) PO SCH (09:54)
[2018-12-23] MEDS: PRENATAL VITAMINS W/ FOLIC ACID TABLET (FP) PO SCH (09:55)
[2018-12-23] MEDS: SILVER SULFADIAZINE 1% TOP CREAM 50 GM JAR TP SCH (10:04)
[2018-12-23] MEDS: chlordiazePOXIDE HCL 10 MG CAPSULE PO SCH (10:04)
--- NOTE | 2018-12-23 15:24 | DS ---
[facility] Detox Discharge Summary Admission Date: 12/19/18 Discharge Date: 12/23/18 - History Present History: Alcohol Dependence Additional Comments: 58 years old male admitted on 12/19/18 for alcohol withdrawal stabilization completed detox regimen aftercare community self help group Pertinent Past History: bring in medication list and lab report to follow up appointment patient agrees to return to methadone maintenance program for medical and mental issues strong recommend the patient to care for chronic foot ulceration from amputee to avoid possible osteomyelitits - Physical Exam Results Vital Signs: Vital Signs Temperature 97.0 F L 12/23/18 09:18 Pulse Rate 111 H 12/23/18 09:18 Respiratory Rate 20 12/23/18 09:18 Blood Pressure 143/100 12/23/18 09:18 O2 Sat by Pulse Oximetry (%) Pertinent Admission Physical Exam Findings: alcohol withdrawal sx Laboratory Last Values WBC 4.1 K/mm3 (4.0-10.0) 12/20/18 07:00 RBC 3.96 M/mm3 (4.00-5.60) L 12/20/18 07:00 Hgb 12.7 GM/dL (11.7-16.9) 12/20/18 07:00 Hct 37.2 % (35.4-49) 12/20/18 07:00 MCV 94.0 fl (80-96) 12/20/18 07:00 MCH 32.2 pg (25.7-33.7) 12/20/18 07:00 MCHC 34.3 g/dl (32.0-35.9) 12/20/18 07:00 RDW 14.3 % (11.9-15.9) 12/20/18 07:00 Plt Count 88 K/MM3 (134-434) L 12/20/18 07:00 MPV 8.1 fl (7.5-11.1) D 12/20/18 07:00 Sodium 142 mmol/L (136-145) 12/20/18 07:00 Potassium 4.2 mmol/L (3.5-5.1) 12/23/18 07:00 Chloride 104 mmol/L (98-107) 12/20/18 07:00 Carbon Dioxide 31 mmol/L (21-32) 12/20/18 07:00 Anion Gap 7 MMOL/L (8-16) L 12/20/18 07:00 BUN 11 mg/dL (7-18) 12/20/18 07:00 Creatinine 0.5 mg/dL (0.55-1.3) L 12/20/18 07:00 Creat Clearance w eGFR 172.01 (>60) 12/20/18 07:00 Random Glucose 82 mg/dL (74-106) 12/20/18 07:00 Calcium 8.5 mg/dL (8.5-10.1) 12/20/18 07:00 Total Bilirubin 0.5 mg/dL (0.2-1) 12/20/18 07:00 AST 57 U/L (15-37) H 12/20/18 07:00 ALT 57 U/L (13-61) 12/20/18 07:00 Alkaline Phosphatase 125 U/L (45-117) H 12/20/18 07:00 Total Protein 7.4 g/dl (6.4-8.2) 12/20/18 07:00 Albumin 3.3 g/dl (3.4-5.0) L 12/20/18 07:00 RPR Titer Nonreactive (NONREACTIVE) 12/20/18 07:00 lab noted - Treatment Hospital Course: Detox Protocol Followed, Detoxed Safely, Responded well, Discharged Condition Good, Rehab Referral Accepted Patient has Accepted a Rehab Referral to: community self help group - Medication Discharge Medications: Ambulatory Orders Methadone [Dolophine -] 40 mg PO DAILY 08/31/17 Aspirin [ASA -] 81 mg PO DAILY #30 tab.chew 06/02/18 Nifedipine ER [Procardia XL -] 60 mg PO DAILY #30 tab.er.24 06/02/18 Cephalexin Monohydrate [Keflex -] 500 mg PO Q6HPO #20 capsule 12/22/18 Nifedipine ER [Procardia XL -] 90 mg PO DAILY #30 tab.er.24 12/22/18 - Diagnosis (1) Alcohol abuse with uncomplicated intoxication Status: Acute (2) Hepatitis C Status: Chronic Qualifiers: Viral hepatitis chronicity: unspecified Hepatic coma status: without hepatic coma Qualified Code(s): B19.20 - Unspecified viral hepatitis C without hepatic coma (3) Hypertension Status: Chronic Qualifiers: Hypertension type: essential hypertension Qualified Code(s): I10 - Essential (primary) hypertension (4) Methadone maintenance therapy patient Status: Chronic (5) Ulcer of foot Status: Chronic Qualifiers: Laterality: left - AMA Did Patient Leave Against Medical Advice: No
== END 2018-12-23 10:30 | disposition home or self-care (01) | DRG 773 ==
LOC: YASAS 21:33 → Y3N 23:27
PROVIDERS: ADMIT Surgery; ATTEND Surgery
PROC: HZ2ZZZZ Detoxification Services for Substance Abuse Treatment (ICD-10-PCS; principal; 2018-12-19)
DX: F10.230 Alcohol dependence with withdrawal, uncomplicated (principal); F11.20 Opioid dependence, uncomplicated; D69.6 Thrombocytopenia, unspecified; I10 Essential (primary) hypertension; B19.20 Unspecified viral hepatitis C without hepatic coma; E87.6 Hypokalemia; S91.302A Unspecified open wound, left foot, initial encounter; S91.301A Unspecified open wound, right foot, initial encounter; L97.521 Non-pressure chronic ulcer of other part of left foot limited to breakdown of skin; Z89.412 Acquired absence of left great toe; Z89.411 Acquired absence of right great toe; Z89.422 Acquired absence of other left toe(s); Z89.421 Acquired absence of other right toe(s); X58.XXXA Exposure to other specified factors, initial encounter; Y93.89 Activity, other specified; Y92.89 Other specified places as the place of occurrence of the external cause; Y99.8 Other external cause status
CPT/HCPCS: 36415; 80053; 84132; 85027; 86593; J0735

== ENCOUNTER 2019-06-05 20:43 | Inpatient (IN) | payer OTHER ==
[2019-06-05] MEDS ORDERED: IBUPROFEN 600 MG TABLET (FP) PO ONE ×2 (22:13→22:32)
[2019-06-05] MEDS ORDERED: CLINDAMYCIN 600MG PREMIX IVPB 600 MG/50 ML BAG IVPB ONE ×2 (22:14→22:32)
[2019-06-05] MEDS ORDERED: chlordiazePOXIDE HCL 25 MG CAPSULE PO ONE (22:16)
--- NOTE | 2019-06-05 22:17 | PDOC ---
History of Present Illness - General Chief Complaint: Wound Stated Complaint: OPEN WOUND Time Seen by Provider: 06/05/19 21:26 History Source: Patient, Old Records Exam Limitations: No Limitations - History of Present Illness Initial Comments: 06/05/19 22:12 58y M with PMH of Alcohol Dependence, HTN (not compliant with medications), Neuropathy, Arthritis, Hep C BIBA from [facility] for bilateral foot wounds. Pt states that he has had these wounds "for a while" and they do not bother him but have been more bothersome. He has had bilateral toe amputations due to infection. He does not feel pain due to neuropathy. He denies fevers, chills, abdominal pain, chest pain sob, n/v/d, difficulty walking, unsteadiness. He says he drinks around 15 bottles of beer daily and last drank about 3 hours ago. He wanted to go to detox for which he has in the past. He says he has been non compliant with his medications. PMD: Wu Cohen PMH: see hpi PSH: amputations, knee surgery Meds: states he was taking lisinopril and nifedipine Allergies: nkda Social: alcohol use. Denies opiate, heroin, marijuana, tobacco use. Past History - Past Medical History Allergies/Adverse Reactions: Allergies Allergy/AdvReac Type Severity Reaction Status Date / Time No Known Allergies Allergy Verified 06/05/19 22:19 Home Medications: Ambulatory Orders Methadone [Dolophine -] 40 mg PO DAILY 08/31/17 Nifedipine ER [Procardia XL -] 60 mg PO DAILY #30 tab.er.24 06/02/18 Anemia: No Asthma: No Cancer: No Cardiac Disorders: No CVA: No COPD: No Diabetes: No GI Disorders: No Disorders: No HTN: Yes (Not on medication) Hypercholesterolemia: No Kidney Stones: No Liver Disease: No Seizures: No Thyroid Disease: No - Surgical History Abdominal Surgery: No Appendectomy: No Cardiac Surgery: No Cholecystectomy: No Lung Surgery: No Neurologic Surgery: No Orthopedic Surgery: Yes (amputation B/L FOOT IST AND ) - Reproductive History Testicular Surgery: No - Psycho Social/Smoking Cessation Hx Smoking History: Unknown if ever smoked Have you smoked in the past 12 months: No If you are a former smoker, when did you quit?: 2016 Cigars Per Day: 0 'Breaking Loose' booklet given: 05/30/18 Hx Alcohol Use: Yes (DAILY) Drug/Substance Use Hx: Yes Substance Use Type: Prescribed Hx Substance Use Treatment: Yes ([facility]) Review of Systems - Review of Systems Constitutional: No: Chills, Fever, Weakness HEENTM: No: Symptoms Reported Respiratory: No: Symptoms reported Cardiac (ROS): No: Symptoms Reported ABD/GI: No: Symptoms Reported : No: Symptoms Reported Musculoskeletal: Yes: Other (shoulder pain (chronic)) Integumentary: Yes: See HPI Neurological: No: Symptoms reported, Numbness, Tingling, Weakness, Unsteady Gait *Physical Exam - Vital Signs Last Vital Signs Temp Pulse Resp BP Pulse Ox 97.8 F 80 18 170/101 H 95 06/05/19 20:53 06/05/19 20:53 06/05/19 20:53 06/05/19 20:53 06/05/19 20:53 - Physical Exam General Appearance: Yes: Appropriately Dressed, Intoxicated, Obese. No: Apparent Distress HEENT: positive: EOMI, MARLA, Normal ENT Inspection. negative: Pale Conjunctivae , Scleral Icterus (R), Scleral Icterus (L) Neck: positive: Trachea midline, Supple. negative: Lymphadenopathy (R), Lymphadenopathy (L) Respiratory/Chest: positive: Lungs Clear, Normal Breath Sounds. negative: Crackles, Rales, Rhonchi, Stridor, Wheezing Cardiovascular: positive: Regular Rhythm, Regular Rate, S1, S2. negative: Edema , JVD, Murmur Vascular Pulses: Dorsalis-Pedis (R): 1+, Doralis-Pedis (L): 1+ Gastrointestinal/Abdominal: positive: Normal Bowel Sounds, Soft. negative: Tender, Distended, Guarding, Rebound, Tenderness Musculoskeletal: negative: CVA Tenderness Extremity: positive: Normal Capillary Refill, Pelvis Stable, Pedal Edema (up to [place] bilaterally 1+), Other (great toe amputations bilaterally with circular wounds on pad of feet bilaterally. 3cm wound on R plantar with clean borders. 2- 3cm wound on L plantar surface with surrounding erythema and erythematous wound. ). negative: Calf Tenderness Integumentary: positive: Normal Color, Dry, Warm Neurologic: positive: outbound sales representative II-XII NML intact, Fully Oriented, Normal Mood/Affect , Normal Response, Motor Strength 5/5 ED Treatment Course - LABORATORY CBC & Chemistry Diagram: 06/05/19 22:20 06/05/19 22:20 - RADIOLOGY Radiology Studies Ordered: Category Date Time Status CHEST X-RAY PORTABLE* [RAD] Stat Radiology 06/05/19 21:40 Ordered Medical Decision Making - Medical Decision Making 06/05/19 22:38 58y M with PMH Of alcohol dependence, htn, arthritis, hep c, neuropathy presenting with foot wounds. No history of DM. pt seen ambulating to bathroom in ED without ataxia or gait abnormality. vitals: htn, likely 2/2/ medication non compliance however could be early signs of withdrawal. No tongue fasciculation or tremulousness on exam. pt likely has cellulitis with foot wounds being source. of note, allergy to lisinopril listed however upon asking, pt denies and says he was taking lisinopril in the past. will order labs, cxr, foot xray. wound cultures sent. alcohol levels. -ibuprofen for shoulder pain, librium, iv clindamycin. pt does not have a home; goes between daughters and friend's home. will benefit from admission for treatment of deep wounds and cellulitis. low suspicion for osteomyelitis given wounds do not penetrate deep. 06/06/19 00:37 labs show anemia, low wbc and low platelets. Pt is not having any active bleeding; does not need plt transfusion at this time. elevated lfts likely 2/2 alcohol use/cirrhosis or Hep C. will admit for cellulitis. will need monitoring for withdrawal. microblog sent. 06/06/19 01:07 accepted by hospitalist dispo: med/surg Discharge - Discharge Information Problems reviewed: Yes Clinical Impression/Diagnosis: Alcohol abuse with uncomplicated intoxication Cellulitis Qualifiers: Site of cellulitis: extremity Site of cellulitis of extremity: lower extremity Laterality: unspecified laterality Qualified Code(s): L03.119 - Cellulitis of unspecified part of limb Condition: Good - Admission Yes - Follow up/Referral - Patient Discharge Instructions - Post Discharge Activity
[2019-06-05 22:20] LABS: PH,URINE 6.5 (5.0-8.0); URINE APPEARANCE CLEAR; URINE BILIRUBIN NEGATIVE (NEGATIVE); URINE COLOR YELLOW; URINE GLUCOSE (UA) NEGATIVE (NEGATIVE); URINE KETONE NEGATIVE (NEGATIVE); URINE LEUK ESTERASE NEGATIVE (NEGATIVE); URINE NITRITE NEGATIVE (NEGATIVE); URINE PROTEIN NEGATIVE (NEGATIVE); URINE UROBILINOGEN 0.2 mg/dL (0.2-1.0)
[2019-06-05] MEDS ORDERED: chlordiazePOXIDE HCL 25 MG CAPSULE ONE (22:32)
[2019-06-05 22:33] LABS: BASO % 1.1 % (0-2.0); HEMATOCRIT 34.3 % (35.4-49); HEMOGLOBIN 11.3 GM/dL (11.7-16.9); MCH 31.4 pg (25.7-33.7); MEAN CELL VOLUME 95.4 fl (80-96); MEAN PLT VOLUME 7.4 fl (7.5-11.1); MONO % 8.7 % (3.8-10.2); NEUT % 49.2 % (42.8-82.8); PLATELET COUNT 53 K/MM3 (134-434); RDW 15.1 % (11.9-15.9); WHITE BLOOD COUNT 3.4 K/mm3 (4.0-10.0)
[2019-06-05 22:45] LABS: INR 0.97 (0.83-1.09); PROTHROMBIN TIME (PATIENT) 11.5 SEC (9.7-13.0)
[2019-06-05 22:47] LABS: ACTIVATED PTT 34.9 SECONDS (25.2-36.5)
--- NOTE | 2019-06-05 22:48 | PDOC ---
Attending Attestation - Resident Resident Name: FloresSaKaylee - ED Attending Attestation I have performed the following: I have examined & evaluated the patient, The case was reviewed & discussed with the resident, I agree w/resident's findings & plan, Exceptions are as noted - HPI HPI: 06/05/19 22:46 58-year-old male is coming from [facility] for further evaluation of his bilateral foot wounds - Physicial Exam PE: 06/05/19 22:48 Disheveled 58-year-old male presents to the emergency department with bilateral foot wounds Head normocephalic atraumatic Lungs are clear to auscultation CVS regular rate and rhythm S1-S2 Abdomen protuberant, nontender Lower extremity +1 pitting edema The great toe and second toe on both feet have been amputated, old amputations There are yellow calluses on both feet There is old open tunneling wounds on both feet,there is some purulence on the rt foot neuro pt is alert,ambulatory - Medical Decision Making 06/05/19 22:50 58 yo male with PMH HTN, etoh abuse ,LE neuropathy plan wound cultures sent and pt started on antibiotics
[2019-06-05 22:57] LABS: ALBUMIN 3.7 g/dl (3.4-5.0); BILIRUBIN,TOTAL 0.3 mg/dL (0.2-1); BLOOD UREA NITROGEN 12.2 mg/dL (7-18); CALCIUM 8.4 mg/dL (8.5-10.1); CREATININE 0.6 mg/dL (0.55-1.3); POTASSIUM 3.7 mmol/L (3.5-5.1); TOT PROT 7.7 g/dl (6.4-8.2)
--- NOTE | 2019-06-06 00:57 | PN ---
Teaching Attending Note Name of Resident: Omid Nance ATTENDING PHYSICIAN STATEMENT I saw and evaluated the patient. I reviewed the resident's note and discussed the case with the resident. I agree with the resident's findings and plan as documented. SUBJECTIVE: Patient is a 58 year old man with PMH of Alcohol abuse, HTN (not adherent with medications), Neuropathy, Arthritis and Hepatitis C disease presents from [facility] for bilateral foot wounds. Patient states that he has had these wounds " for a while" and they do not bother him but have been more bothersome. He has had bilateral toe amputations due to infection. He does not feel pain due to neuropathy. He denies fevers, chills, abdominal pain, chest pain, SOB, nausea, vomiting, diarrhea or unsteadiness. He says he drinks around 15 bottles of beer daily and last drank about 3 hours ago. He wanted to go to Detox for which he has in the past. He says he has not been taking his medications. Patient says he is homeless. Has been hospitalized/evaluated in an ER for ?seizures and also spent some time in a fdc all within the past four weeks - unclear if he received any antibiotics recently. Had FH of cancer. OBJECTIVE: Alert and disheveled Vital Signs Period Temp Pulse Resp BP Sys/Shelton Pulse Ox Last 24 Hr 97.8 F 80 18 170/101 95 HEENT: No Jaundice, eye redness or discharge, PERRLA, EOMI. Normocephalic, atraumatic. External ears are normal and hearing is grossly intact. No nasal discharge. Neck: Supple, nontender. No palpable adenopathy or thyromegaly. No JVD Chest: Good effort. Clear to auscultation and percussion. Heart: Regular. No S3, rub or murmur Abdomen: Not distended, soft, nontender and no HSM. No rebound or guarding. Normal bowel sounds. Ext: Peripheral pulses intact. No leg edema. Amputated first and second toes on both feet. Open wounds and calluses on both feet with serosanguineous discharge from right foot wound. Skin: Warm and dry. No petechiae, rash or ecchymosis. Neuro: Alert. Oriented x3. No tremors or asterexis. CN 2-12 grossly intact. Sensation grossly intact in all four extremities and DTR are symmetric. Psych: Appropriate mood and affect. Good insight. Home Medications Medication Instructions Recorded Methadone [Dolophine -] 40 mg PO DAILY 08/31/17 Nifedipine ER [Procardia XL -] 60 mg PO DAILY #30 tab.er.24 06/02/18 Abnormal Lab Results 06/05/19 06/05/19 06/05/19 22:10 22:20 22:20 WBC 3.4 L RBC 3.60 L Hgb 11.3 L Hct 34.3 L Plt Count 53 L D MPV 7.4 L Anion Gap Calcium AST ALT Ur Specific Kimper 1.007 L Alcohol, Quantitative 260.0 H 06/05/19 22:20 WBC RBC Hgb Hct Plt Count MPV Anion Gap 7 L Calcium 8.4 L AST 140 H ALT 100 H Ur Specific Kimper Alcohol, Quantitative ASSESSMENT AND PLAN: 1. Infected foot ulcers and cellulitis - Wound cultures being done. Will treat with IV vancomycin and zosyn, and consult ID, Wound care service and Podiatry. CXR shows cardiomegaly, hilar prominence and no significant infiltrates. No gas collection or acute abnormality on foot x-rays. Will get MRI of feet to rule out osteomyelitis. Pancytopenia likely due to the effects of alcohol and possibly chronic alcoholic liver disease. Will monitor platelets and trend LFTs. EKG shows NSR with no changes of ischemia. Consult quality worker for his homeless situation. Will continue comprehensive care for all of patients comorbid conditions. 2. Obesity Counseled on the risks associated with obesity. Will provide patient all the necessary assistance, counseling and positive reinforcement to facilitate weight loss. Consult financial underwriter. 3. Alcohol abuse/intoxication - Patient is intoxicated with alcohol level of 260. Will give banana bag. Implement CIWA ativan alcohol withdrawal protocol and do neurochecks. Implement seizure, fall and aspiration precautions. Treat with thiamine and folic acid and monitor electrolytes (Ca,Mg,K,P). Counseled patient about abstaining from alcohol. Will consult airways control specialist and refer to alcohol detox upon discharge. 4. Uncontrolled Hypertension - Restart suitable outpatient antihypertensive drugs when clinically appropriate - Procardia Xl, Atenol and HCTZ. Revise regimen to ensure [id number] excellent BP control and school counsellor patient on the injurious effects of uncontrolled hypertension. Nonpharmacologic measures to control hypertension like weight loss, salt restriction and exercise discussed. Importance of adherence to treatment regimen and attainment of normotension emphasized. 5. DVT prophylaxis - Early ambulation. Platelets too low to use heparin or SCD. 6. Advance directives - Full code
--- NOTE | 2019-06-06 02:07 | HP ---
CHIEF COMPLAINT: PCP: Dr. Cohen HISTORY OF PRESENT ILLNESS: 58 y/o/m with PMHx of HTN, alcohol use disorder, neuropathy, arthritis, HEP C sent here from [facility] for evaluation of B/L foot ulcers. Patient states he noticed these ulcers about 8 months ago, he went to [facility] ED once and was referred to Podiatry but did not follow up. He has been trying to keep them clean and bandaged and states he cleans them with Hydrogen peroxide and neosporin when he can. He had his 1st and 2nd toes of both feet amputated within the last 3 years, his last amputation was 1 year ago. He has some pain when he walks but states he has had neuropathy in his feet for over 10 years. 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 He states the beer helps with his pain. He has been homeless for the last few months and occasionally stays with friend or daughter. He complains of increased urinary frequency. He denies any chills, CP, SOB, N/V/D. He wanted to go to [facility] for detox. Patient has never had a colonoscopy. Patient is on Methadone 40mg. He goes to [facility] in [place]. ER course was notable for: (1) 1 course of clindamycin given Recent Travel: none PAST MEDICAL HISTORY: HTN, Alcohol use disorder, Neuropathy, Arthritis, Hep C PAST SURGICAL HISTORY: L knee surgery, B/L 1st and 2nd toe amputations Social History: Smoking: quit 10 years ago Alcohol: drinks 15-20 24oz beers daily, last drink was a few hours BODY SANDER Drugs: denies FamHx: notable for cancer throughout the family Allergies No Known Allergies Allergy (Verified 06/05/19 22:19) HOME MEDICATIONS: Home Medications Medication Instructions Recorded Methadone [Dolophine -] 40 mg PO DAILY 08/31/17 Nifedipine ER [Procardia XL -] 60 mg PO DAILY #30 tab.er.24 06/02/18 REVIEW OF SYSTEMS Constitutional: denies fever, chills, weakness HEENT: denies neck pain, blurry vision Cardio: denies palpitations, chest pain, lightheadedness Resp: denies wheezing, SOB GI: denies nausea, vomiting, diarrhea, constipation : increased urinary frequency denies dysuria, hematuria MSK: denies joint pain, neck pain, back pain SKIN: wounds on both feet denies rashes Neuro: neuropathy of the feet. denies loss of consciousness, headache Psych: anxiety, nervousness PHYSICAL EXAMINATION Vital Signs - 24 hr 06/05/19 20:53 Temperature 97.8 F Pulse Rate 80 Respiratory 18 Rate Blood Pressure 170/101 H O2 Sat by Pulse 95 Oximetry (%) GENERAL: Awake, alert, and fully oriented, in no acute distress. HEAD: mild redness and swelling around left eye, no lacerations. Normocephalic EYES: PERRL, EOMI. EARS, NOSE, THROAT: Dry mucous membranes. Ears normal, nares patent, oropharynx clear without exudates. NECK: Normal range of motion, supple without lymphadenopathy, JVD, or masses. LUNGS: Breath sounds equal, clear to auscultation bilaterally. No wheezes, and no crackles. No accessory muscle use. HEART: Regular rate and rhythm, normal S1 and S2 without murmur, rub or gallop. ABDOMEN: Soft, nontender, not distended, normoactive bowel sounds, no guarding, no rebound, no masses. No hepatomegaly or splenomegaly. MUSCULOSKELETAL: Normal range of motion at all joints. No bony deformities or tenderness. No CVA tenderness. no midline tenderness UPPER EXTREMITIES: mild tremors. 2+ pulses, warm, well-perfused. No cyanosis. No clubbing. No peripheral edema. LOWER EXTREMITIES: amputations of the 1st and 2nd toes on B/L feet. 1+ pitting edema of left leg, 2+ pitting edema of right leg. 2+ pulses, warm, well- perfused. No calf tenderness. NEUROLOGICAL: CN 2-12 normal. Normal speech. Normal gait. 5/5 strength upper and lower extremities. PSYCHIATRIC: Cooperative. Good eye contact. Appropriate mood and affect. SKIN: On the plantar surface of the right foot below the 1st/2nd metatarsal there is a 1.5cm circular ulcer with mild surrounding erythema and does not probe to bone, minimal serous drainage. On the plantar surface below the 1st/ 2nd metatarsal there is a <1cm circular ulcer with surrounding eschar and erythema that does not probe to bone. Mild surrounding warmth on both feet. Warm, dry, normal turgor, no rashes or lesions noted, normal capillary refill. Laboratory Results - last 24 hr 06/05/19 06/05/19 06/05/19 22:10 22:20 22:20 WBC RBC Hgb Hct MCV MCH MCHC RDW Plt Count MPV Absolute Neuts (auto) Neutrophils % Lymphocytes % Monocytes % Eosinophils % Basophils % Nucleated RBC % PT with INR INR PTT (Actin FS) Cancelled Sodium Potassium Chloride Carbon Dioxide Anion Gap BUN Creatinine Est GFR (CKD-EPI)AfAm Est GFR (CKD-EPI)NonAf Random Glucose Lactic Acid Calcium Total Bilirubin AST ALT Alkaline Phosphatase Total Protein Albumin Urine Color Yellow Urine Appearance Clear Urine pH 6.5 D Ur Specific Gay 1.007 L Urine Protein Negative Urine Glucose (UA) Negative Urine Ketones Negative Urine Blood Negative Urine Nitrite Negative Urine Bilirubin Negative Urine Urobilinogen 0.2 Ur Leukocyte Esterase Negative Alcohol, Quantitative Blood Type A POSITIVE Antibody Screen Negative 06/05/19 06/05/19 06/05/19 22:20 22:20 22:20 WBC 3.4 L RBC 3.60 L Hgb 11.3 L Hct 34.3 L MCV 95.4 MCH 31.4 MCHC 33.0 RDW 15.1 Plt Count 53 L D MPV 7.4 L Absolute Neuts (auto) 1.7 Neutrophils % 49.2 Lymphocytes % 39.0 Monocytes % 8.7 Eosinophils % 2.0 Basophils % 1.1 Nucleated RBC % 0 PT with INR INR PTT (Actin FS) Sodium 142 Potassium 3.7 Chloride 107 Carbon Dioxide 29 Anion Gap 7 L BUN 12.2 Creatinine 0.6 Est GFR (CKD-EPI)AfAm 130.27 Est GFR (CKD-EPI)NonAf 112.40 Random Glucose 86 Lactic Acid Calcium 8.4 L Total Bilirubin 0.3 AST 140 H ALT 100 H Alkaline Phosphatase 105 Total Protein 7.7 Albumin 3.7 Urine Color Urine Appearance Urine pH Ur Specific Gay Urine Protein Urine Glucose (UA) Urine Ketones Urine Blood Urine Nitrite Urine Bilirubin Urine Urobilinogen Ur Leukocyte Esterase Alcohol, Quantitative 260.0 H Blood Type Antibody Screen 06/05/19 06/05/19 22:20 22:20 WBC RBC Hgb Hct MCV MCH MCHC RDW Plt Count MPV Absolute Neuts (auto) Neutrophils % Lymphocytes % Monocytes % Eosinophils % Basophils % Nucleated RBC % PT with INR 11.50 INR 0.97 PTT (Actin FS) 34.9 Sodium Potassium Chloride Carbon Dioxide Anion Gap BUN Creatinine Est GFR (CKD-EPI)AfAm Est GFR (CKD-EPI)NonAf Random Glucose Lactic Acid 1.0 Calcium Total Bilirubin AST ALT Alkaline Phosphatase Total Protein Albumin Urine Color Urine Appearance Urine pH Ur Specific Gay Urine Protein Urine Glucose (UA) Urine Ketones Urine Blood Urine Nitrite Urine Bilirubin Urine Urobilinogen Ur Leukocyte Esterase Alcohol, Quantitative Blood Type Antibody Screen ASSESSMENT/PLAN: 58 y/o/m with PMHx of HTN, alcohol use disorder, neuropathy, arthritis, HEP C sent here from [facility] for evaluation of B/L foot ulcers. 1) Infected bilateral foot wounds -Patient given Clindamycin in the ED -Started on Vanc/Zosyn -F/u cultures -MRI non con of B/L feet to r/o osteo -consider Podiatry consult -ID consulted, Dr. Cottrell 2)Pancytopenia -f/u B12, folate, Iron studies -f/u Hepatitis Panel -f/u HIV test. Verbal consent obtained from patient -Abd U/S to r/o liver and spleen lesions -Could be secondary to chronic alcohol use 3)Hypertensive urgency -Patient non compliant with medications at home -Started on Nifedipine -Beta Elisa started to counteract Nifedipine side effects of headache and reflex tachycardia -Started on HCTZ 12. 5 4)Alcohol Intoxication -CIWA score of 5 -Started on Ativan protocol for expected withdrawal -Banana Bag, Thiamine, Folic acid supplements started -Fall, seizure, and aspiration precautions implemented 5)Transaminitis -likely secondary to alcohol use -Hepatitis panel ordered -Abdominal U/S to rule out liver lesions 6)Prophylaxis -Lovenox 7)FEN -Clear liquid diet -Banana bag 8)Disposition -admitted to Med/Surg Visit type - Emergency Visit Emergency Visit: Yes ED Registration Date: 06/06/19 Care time: The patient presented to the Emergency Department on the above date and was hospitalized for further evaluation of their emergent condition. - New Patient This patient is new to me today: Yes Date on this admission: 06/06/19 - Critical Care Critical Care patient: No ATTENDING PHYSICIAN STATEMENT I saw and evaluated the patient. I reviewed the resident's note and discussed the case with the resident. I agree with the resident's findings and plan as documented. SUBJECTIVE: OBJECTIVE: ASSESSMENT AND PLAN:
[2019-06-06] MEDS ORDERED: FOLIC ACID INJECTION - 1 MG, THIAMINE HCL 100 MG, MULTIVIT INJECTION ADULT 10 ML in SOD... IVPB ONE (03:24)
[2019-06-06] MEDS ORDERED: ATENOLOL 25 MG TABLET (FP) PO ONE (03:26)
[2019-06-06] MEDS ORDERED: NIFEdipine E.R. 30 MG TABLET (FP) PO SCH (03:26)
[2019-06-06] MEDS ORDERED: ATENOLOL 25 MG TABLET (FP) ONE (04:39)
[2019-06-06] MEDS ORDERED: LORazepam 0.5 MG TABLET ONE (04:44)
[2019-06-06] MEDS: LORazepam 1 MG TABLET PO PRN ×2 (04:51→12:38)
[2019-06-06] MEDS ORDERED: NIFEdipine E.R 60 MG TABLET (UD) PO SCH (07:16)
[2019-06-06] MEDS ORDERED: hydrALAZINE HCL 20 MG/ML VIAL IVPUSH ONE ×2 (07:18→07:44)
[2019-06-06] MEDS ORDERED: NIFEdipine E.R. 30 MG TABLET (FP) PO STA (07:20)
[2019-06-06] MEDS ORDERED: NIFEdipine E.R. 30 MG TABLET (FP) ONE (07:40)
[2019-06-06] MEDS ORDERED: hydrALAZINE HCL 20 MG/ML VIAL ONE (07:41)
--- NOTE | 2019-06-06 07:42 | PN ---
Progress Note, Physician - Current Medication List Current Medications: Active Medications Enoxaparin Sodium (Lovenox -) 40 mg SQ DAILY [facility] Folic Acid (Folic Acid -) 1 mg PO DAILY [facility] Hydrochlorothiazide (Hctz -) 12.5 mg PO DAILY [facility] Folic Acid 1 mg/ Thiamine HCl 100 mg/ Multivitamins/Minerals 10 ml/ Sodium Chloride 1,000 mls @ 125 mls/hr IVPB ONCE ONE Stop: 06/06/19 11:23 Last Admin: 06/06/19 04:35 Dose: 125 mls/hr Lorazepam (Ativan -) 0.5 mg PO Q6H MARIXA Stop: 06/08/19 23:01 Lorazepam (Ativan -) 0.5 mg PO Q4H PRN PRN Reason: Symptoms of Withdrawal Stop: 06/09/19 00:00 Lorazepam (Ativan -) 0.5 mg PO ONCE ONE Stop: 06/09/19 05:01 Lorazepam (Ativan -) 1 mg PO 0500,1100,1700,2300 [facility] Stop: 06/07/19 23:01 Lorazepam (Ativan -) 1 mg PO Q4H PRN PRN Reason: Symptoms of Withdrawal Stop: 06/08/19 00:00 Last Admin: 06/06/19 04:51 Dose: 1 mg Nifedipine (Procardia Xl -) 60 mg PO DAILY [facility] Thiamine HCl (Vitamin B1 -) 100 mg PO DAILY [facility] - Objective Vital Signs: Vital Signs Temperature 98.3 F 06/06/19 07:38 Pulse Rate 78 06/06/19 07:38 Respiratory Rate 20 06/06/19 07:38 Blood Pressure 191/111 H 06/06/19 07:38 O2 Sat by Pulse Oximetry (%) 96 06/06/19 07:38 Labs: INR, PTT INR 0.97 (0.83-1.09) 06/05/19 22:20
[2019-06-06 07:50] LABS: ANION GAP 10 MMOL/L (8-16); BLOOD UREA NITROGEN 8.8 mg/dL (7-18); CALCIUM 8.4 mg/dL (8.5-10.1); CHLORIDE 101 mmol/L (98-107); CO2 30 mmol/L (21-32); CREATININE 0.5 mg/dL (0.55-1.3); GLUCOSE,RANDOM 81 mg/dL (74-106); IRON SERUM 120 ug/dL (50-175); MAGNESIUM 1.5 mg/dL (1.8-2.4); POTASSIUM 3.5 mmol/L (3.5-5.1); SODIUM 141 mmol/L (136-145)
[2019-06-06 07:54] LABS: IRON SERUM 120 ug/dL (50-175); TOTAL IRON BINDING CAPACITY 322 ug/dL (250-450)
[2019-06-06] MEDS ORDERED: MAGNESIUM OXIDE 400 MG TABLET (FP) PO ONE (07:57)
[2019-06-06 08:03] LABS: HEMATOCRIT 40.1 % (35.4-49); HEMOGLOBIN 13.2 GM/dL (11.7-16.9); MCH 31.4 pg (25.7-33.7); MCHC 32.8 g/dl (32.0-35.9); MEAN CELL VOLUME 95.4 fl (80-96); PLATELET COUNT 59 K/MM3 (134-434); RDW 15.3 % (11.9-15.9); WHITE BLOOD COUNT 4.6 K/mm3 (4.0-10.0)
[2019-06-06] MEDS ORDERED: MAGNESIUM OXIDE 400 MG TABLET (FP) ONE (08:42)
[2019-06-06] MEDS: THIAMINE HCL 100 MG TABLET (FP) PO SCH (09:45)
[2019-06-06] MEDS: FOLIC ACID 1 MG TABLET (FP) PO SCH (09:45)
[2019-06-06 09:48] LABS: COCAINE, UR NEGATIVE ng/ml (CUTOFF=300); METHADONE, UR NEGATIVE ng/ml (CUTOFF=300); OPIATES, URI NEGATIVE ng/ml (CUTOFF=300); PHENCYCLIDINE,URINE NEGATIVE ng/ml (CUTOFF=25); URINE AMPHETAMINES NEGATIVE ng/ml (CUTOFF=500); URINE BARBITURATES NEGATIVE ng/ml (CUTOFF=200); URINE BENZODIAZEPINES NEGATIVE ng/ml (CUTOFF=200)
[2019-06-06] MEDS ORDERED: ENOXAPARIN NA (PORCINE) 40 MG/0.4 ML DISP.SYRIN SQ SCH (10:00)
[2019-06-06] MEDS ORDERED: HYDROCHLOROTHIAZIDE 12.5 MG CAPSULE (FP) PO SCH (10:00)
[2019-06-06] MEDS ORDERED: MAGNESIUM 4GM/H20 - 4 GM/100 ML IVPB IVPB ONE (10:44)
--- NOTE | 2019-06-06 12:18 | CONSULT ---
Consult Consult Specialty:: podiatry Reason for Consultation:: b/l foot wounds - History of Present Illness History of Present Illness: chronic wounds b/l feet - Alcohol/Substance Use Hx Alcohol Use: Yes (DAILY) - Smoking History Smoking history: Unknown if ever smoked Have you smoked in the past 12 months: No If you are a former smoker, when did you quit?: 2016 Home Medications - Allergies Allergies/Adverse Reactions: Allergies Allergy/AdvReac Type Severity Reaction Status Date / Time No Known Allergies Allergy Verified 06/05/19 22:19 - Home Medications Home Medications: Ambulatory Orders Methadone [Dolophine -] 40 mg PO DAILY 08/31/17 Nifedipine ER [Procardia XL -] 60 mg PO DAILY #30 tab.er.24 06/02/18 Physical Exam Vital Signs: Vital Signs Temperature 98.3 F 06/06/19 07:38 Pulse Rate 88 06/06/19 09:23 Respiratory Rate 20 06/06/19 09:23 Blood Pressure 161/103 H 06/06/19 09:23 O2 Sat by Pulse Oximetry (%) 95 06/06/19 09:23 Extremities: Yes: Other (+neuropathy b/l feet, +grade 2-3 wound b/l feet submet 1, s/p amputation 1&2 b/l+granulation. 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 MRI b/l feet. Vascular and ID on case. Santyl to wounds. Reviewed xrays. Will follow. HBO consult.
--- NOTE | 2019-06-06 12:52 | EKG ---
Test Reason : Blood Pressure : / mmHG Vent. Rate : 077 BPM Atrial Rate : 077 BPM P-R Int : 138 ms QRS Dur : 114 ms QT Int : 400 ms P-R-T Axes : 036 -48 034 degrees QTc Int : 452 ms NORMAL SINUS RHYTHM LEFT ANTERIOR FASCICULAR BLOCK ABNORMAL ECG WHEN COMPARED WITH ECG OF 22-JUN-2018 15:05, NONSPECIFIC T WAVE ABNORMALITY NOW EVIDENT IN LATERAL LEADS Confirmed by DOUGLAS CERVANTES MD ([id number]) on 06/06/2019 12:51:54 PM Referred By: Confirmed By:DOUGLAS CERVANTES MD
--- NOTE | 2019-06-06 14:04 | PN ---
Progress Note (short form) - Note Progress Note: ID consult dictated imp/reccd 58 yo man admitted from detox for chronic ulcers of his feet he is s/p bilateral toe [facility]putations [facility] has longstanding neuropathy homeless drinks beer on methadone (got addicted to pain killers)- no IVDU history hep c- reports he cleared it has had the ulcers for months bilateral plantar ulcers with calluses no fevers, no purulence, no erythema suggest podiatry evaluation ulcers/feet need to be cleaned up hold antiiboitcs for now- no clear indication etoh detox per primary service d/w resident Problem List - Problems (1) Multiple open wounds of foot Code(s): S91.309A - UNSPECIFIED OPEN WOUND, UNSPECIFIED FOOT, INITIAL ENCOUNTER (2) Thrombocytopenia Code(s): D69.6 - THROMBOCYTOPENIA, UNSPECIFIED (3) Alcohol dependence with uncomplicated withdrawal Code(s): F10.230 - ALCOHOL DEPENDENCE WITH WITHDRAWAL, UNCOMPLICATED (4) Methadone maintenance therapy patient Code(s): F11.20 - OPIOID DEPENDENCE, UNCOMPLICATED
[2019-06-06] MEDS ORDERED: LORazepam 2 MG/ML SDV VIAL ONE (14:09)
--- NOTE | 2019-06-06 14:17 | PN ---
Progress Note (short form) - Note Progress Note: Called to see patient on floor. He was acutely withdrawling from EtOH. CIWA 15. Given 2mg IV ativan and 10mg PO valium. Made NPO. High risk for DTs. Will monitor but have low threshold for upgrade of care if any hemodynamic instability Visit type - Emergency Visit Emergency Visit: Yes ED Registration Date: 06/06/19 Care time: The patient presented to the Emergency Department on the above date and was hospitalized for further evaluation of their emergent condition. - New Patient This patient is new to me today: Yes Date on this admission: 06/07/19 - Critical Care Critical Care patient: Yes Total Critical Care Time (in minutes): 15
[2019-06-06] MEDS ORDERED: LORazepam 2 MG/ML SDV VIAL IVPUSH PRN (14:19)
[2019-06-06] MEDS ORDERED: LACTATED RINGERS SOLUTION 1,000 ML/1,000 ML INFUS.BAG IV SCH (14:30)
[2019-06-06] MEDS ORDERED: LORazepam 1 MG TABLET PO PRN (15:14)
[2019-06-06] MEDS ORDERED: diazePAM CARPU-JECT 10 MG/2 ML DISP.SYRIN IVPUSH ONE (15:30)
[2019-06-06] MEDS: MAGNESIUM SULF 50% (8.12 MEQ/2 ML-1 GM VIAL) IVPB SCH ×2 (16:28→18:35)
[2019-06-06] MEDS ORDERED: diazePAM 5 MG TABLET PO ONE (16:28)
[2019-06-06] MEDS: diazePAM 5 MG TABLET PO SCH ×2 (18:19→23:03)
[2019-06-06] MEDS: COLLAGENASE CLOSTRIDIUM HIST. 30 GRAMS TUBE TP SCH (18:28)
[2019-06-06] MEDS: LACTATED RINGERS SOLUTION 1,000 ML/1,000 ML INFUS.BAG IV SCH (18:52)
[2019-06-06] MEDS ORDERED: IBUPROFEN 600 MG TABLET (FP) PO ONE (20:38)
--- NOTE | 2019-06-06 20:39 | CONS ---
DATE OF CONSULTATION: DATE OF DICTATION: 06/06/2019 INFECTIOUS DISEASE CONSULTATION HISTORY OF PRESENT ILLNESS: This is a 58-year-old man who was sent from detox to the hospital. He has a history of alcohol use. He drinks beer. He has been drinking for a very, very long time. He is a former smoker. He quit smoking in 2016. He reports that he is status post amputation of the 1st and 2nd toes of both his feet last year at [facility]. He reports he has a history of opiate addiction secondary to pain medicine. He broke his knee many years ago and was on chronic pain medications, after which he developed an opiate addiction and has been on methadone since that time. He went to detox for admission, was noted to have chronic ulcers in the plantar surface of both his feet and was sent to the emergency room. He denies any fevers, chills. He does have symptoms of alcohol withdrawal. He has no known drug allergies. His medications include nifedipine and methadone. PAST MEDICAL HISTORY: Notable for history of hypertension, alcohol use disorder, neuropathy which he states he has had for 10 years, arthritis, and hepatitis C which he states he has cleared. SURGICAL HISTORY: Notable for left knee surgery and bilateral 1st and 2nd toe amputations done at [facility], he says last year. SOCIAL HISTORY: He has been homeless, occasionally stays with his younger daughter. He has quit smoking 10 years ago. He drinks beer daily. He denies drug use. FAMILY HISTORY: Notable for cancer. ALLERGIES: No known drug allergies. REVIEW OF SYSTEMS: Notable for anxiety and nervousness he attributes to alcohol withdrawal. PHYSICAL EXAMINATION: General: He is awake and alert. Vital Signs: Temperature 98.9, pulse 102, blood pressure 148/93, respiratory rate 18. HEENT: Normocephalic. Eyes are anicteric. Neck: Supple. Lungs: Clear to auscultation. Heart: Regular rate and rhythm. Abdomen: Soft, nontender. Extremities: Notable for bilateral plantar ulcers. On the right foot, he still has a stitch in the site of the prior amputation site, on the sole of his foot he has a large callus with an ulcer. On the left foot, he has a dirty plantar ulcer as well. Both amputation sites appear well healed. There is no erythema, no purulence or drainage . LABORATORY: Notable for a white count of 4.6, hemoglobin 13.2, platelets 59,000, INR is 0.97, BUN and creatinine are 8 and 0.5. His LFTs are 140 AST, ALT of 100, bilirubin is normal, alkaline phosphatase is normal. Urinalysis is negative. He is HIV negative. He had x-rays of the foot that were negative for osteo. Cultures are pending . He received a dose of clindamycin in the ER. IMPRESSION: In summary, this is a 58-year-old man admitted for alcohol withdrawal. He has chronic plantar ulcers with calluses. No fevers, purulence, or erythema. Suggest podiatry evaluation and his feet need to be cleaned up. Would hold antibiotics for now, there is no clear indication. Alcohol detox per primary service. This was discussed with the resident. BARRY JACOBSEN M.D. [id number]
[2019-06-07] MEDS: MELATONIN 5 MG TABLETS PO PRN ×2 (03:31→22:12)
[2019-06-07] MEDS ORDERED: LORazepam 1 MG TABLET PO SCH (05:00)
[2019-06-07] MEDS: diazePAM 5 MG TABLET PO SCH ×3 (06:39→22:13)
[2019-06-07] MEDS: LACTATED RINGERS SOLUTION 1,000 ML/1,000 ML INFUS.BAG IV SCH (07:13)
--- NOTE | 2019-06-07 08:45 | CONSULT ---
- Consultation REQUESTING PROVIDER: CONSULT REQUEST: We have been asked to surgically evaluate this patient for ( specify). PCP: Flynn Morales MD HPI: Called to elias 58 yo male w/ PMHx as noted below. States he ias admitted to [facility] for Detox (alcohol). They sent him to hospital for evaluation of his b/l LE chronic feet infection (has had them for 8 months). On Methadone 40mg. He goes to [facility] [address] in [place]. Denies n/v/f/c Social History: Smoking: quit 10 years ago Alcohol: drinks 15-20 24oz beers daily, last drink was a few hours prior too admission Drugs: denies PMHx: HTN, Arthritis, EtOH, Neuropathy, Arthritis, Hep C PSHx: L knee surgery, B/L 1st and 2nd toe amputations Home Meds Methadone 40 mg PO DAILY Nifedipine ER 60 mg PO DAILY #30 tab.er.24 Allergies: NKDA PE: GENERAL: Awake, alert, and fully oriented, in no acute distress. HEAD: Normal with no signs of trauma. EYES: PERRL, sclera anicteric, conjunctiva clear. LUNGS: CTA bilat HEART: RRR UE: 2+ pulses, warm, well-perfused. No cyanosis. Cap refill <2 seconds. No peripheral edema. LE: s/p digital amp (1st & 2nd toes); + granulation to both wounds. negative drainage. Palpable DP & PT bilat PSYCH: Cooperative. Good eye contact. Appropriate mood and affect. Last Vital Signs Temp Pulse Resp BP Pulse Ox 97.7 F 102 H 16 139/99 95 06/07/19 06:00 06/07/19 06:00 06/07/19 06:00 06/06/19 22:00 06/06/19 21:00 CBC, BMP 06/06/19 06:35 06/06/19 06:35 Blood Type Blood Type A POSITIVE 06/06/19 08:18 INR, PTT INR 0.97 (0.83-1.09) 06/05/19 22:20 Microbiology 06/05/19 22:20 Blood - Peripheral Venous Blood Culture - Preliminary NO GROWTH OBTAINED AFTER 24 HOURS 06/05/19 22:10 Foot - Right Plantar Gram Stain - Final --> NO ORGANISIMS or PMNs seen. Culture is pending 06/05/19 22:10 Foot - Left Plantar Gram Stain - Final --> NO ORGANISIMS or PMNs seen. Culture is pending Problem List - Problems (1) Multiple open wounds of foot Assessment/Plan: 58 yo male admitted to [facility] for Detox. Sent for evaluation of his bilat LE feet infection (chronic (8 months). Patient is afebrile. No leukocytosis. Podiatry following Daily wound dressing w/ Santyl/moist 4x4/kerlix; elevation Wash feet with warm soapy water daily EtOH Detox Protocol Optimize nutrition f/u Lt & Rt feet cultures pending HBO consult Code(s): S91.309A - UNSPECIFIED OPEN WOUND, UNSPECIFIED FOOT, INITIAL ENCOUNTER (2) Alcohol dependence with uncomplicated withdrawal Code(s): F10.230 - ALCOHOL DEPENDENCE WITH WITHDRAWAL, UNCOMPLICATED (3) Hepatitis C Code(s): B19.20 - UNSPECIFIED VIRAL HEPATITIS C WITHOUT HEPATIC COMA Qualifiers: Viral hepatitis chronicity: unspecified Hepatic coma status: without hepatic coma Qualified Code(s): B19.20 - Unspecified viral hepatitis C without hepatic coma (4) Hypertension Code(s): I10 - ESSENTIAL (PRIMARY) HYPERTENSION Qualifiers: Hypertension type: essential hypertension Qualified Code(s): I10 - Essential (primary) hypertension (5) Methadone maintenance therapy patient Code(s): F11.20 - OPIOID DEPENDENCE, UNCOMPLICATED (6) Neuropathy Code(s): G62.9 - POLYNEUROPATHY, UNSPECIFIED Visit type - Case Type Case Type: Scheduled - New patient This patient is new to me today: Yes Date on this admission: 06/07/19
[2019-06-07] MEDS ORDERED: METHADONE HCL 40 MG DISPERSABLE TABLET PO ONE (11:37)
[2019-06-07] MEDS: NIFEdipine E.R 60 MG TABLET (UD) PO SCH (11:40)
[2019-06-07] MEDS: FOLIC ACID 1 MG TABLET (FP) PO SCH (11:40)
[2019-06-07] MEDS: THIAMINE HCL 100 MG TABLET (FP) PO SCH (11:40)
[2019-06-07] MEDS ORDERED: PT OWN MED DRAWER 7, Y5N ONE (12:18)
--- NOTE | 2019-06-07 12:35 | CON.PULM ---
Consult Consult Specialty:: PULM/CCM Referred by:: Hospitalist Reason for Consultation:: OSAS - History of Present Illness Chief Complaint: foot ulcers History of Present Illness: 58 M, HTN, alcohol abuse disorder, neuropathy, arthritis, and Hepatitis C. Sent from [facility] for evaluation of B/L foot ulcers which have been worsening over the past 8 months. The patient does reports snoring and Excessive Daytime Sleepiness (EDS). Possible witnessed apneas. No parasomnias or history that would be consistent with a nocturnal movement disorder or narcolepsy. No CP or SOB. Of note he is on Methadone 40mg OD. He is also being managed/treated for acute withdrawal. - History Source History Provided By: Patient, Medical Record Limitations to Obtaining History: Poor Historian - Past Medical History Pulmonary: Yes: Bronchitis, Sleep Apnea. No: Asthma, Cancer, COPD, O2 Dependent , Pneumonia, Previously Intubated, Pulmonary Embolus, Pulmonary Fibrosis - Alcohol/Substance Use Hx Alcohol Use: Yes (DAILY) - Smoking History Smoking history: Unknown if ever smoked Have you smoked in the past 12 months: No Aproximately how many cigarettes per day: 12 If you are a former smoker, when did you quit?: 2016 Home Medications - Allergies Allergies/Adverse Reactions: Allergies Allergy/AdvReac Type Severity Reaction Status Date / Time No Known Allergies Allergy Verified 06/05/19 22:19 - Home Medications Home Medications: Ambulatory Orders Methadone [Dolophine -] 40 mg PO DAILY 08/31/17 Nifedipine ER [Procardia XL -] 60 mg PO DAILY #30 tab.er.24 06/02/18 Review of Systems - Review of Systems Constitutional: reports: Malaise. denies: Night Sweats, Unintentional Wgt. Loss Eyes: reports: No Symptoms HENT: reports: No Symptoms Neck: reports: No Symptoms Cardiovascular: denies: Chest Pain, Edema, Palpitations, Shortness of Breath Respiratory: reports: Snoring. denies: Cough, Exercise Intolerance, Hemoptysis , Orthopnea, PND, SOB, SOB on Exertion, Wheezing Gastrointestinal: reports: No Symptoms Genitourinary: reports: No Symptoms Breasts: reports: No Symptoms Reported Musculoskeletal: reports: No Symptoms Integumentary: reports: Blister, Bruising, Change in Color, Erythema, Pruritis, Rash, Wound Neurological: reports: No Symptoms Endocrine: reports: No Symptoms Hematology/Lymphatic: reports: No Symptoms Psychiatric: reports: No Symptoms Physical Exam Vital Sings: Vital Signs Temperature 97.7 F 06/07/19 06:00 Pulse Rate 102 H 06/07/19 06:00 Respiratory Rate 16 06/07/19 06:00 Blood Pressure 139/99 06/06/19 22:00 O2 Sat by Pulse Oximetry (%) 95 06/06/19 21:00 Constitutional: Yes: No Distress, Obese Eyes: Yes: Conjunctiva Clear, EOM Intact HENT: Yes: Atraumatic, Normocephalic Neck: Yes: Supple, Trachea Midline Cardiovascular: Yes: Regular Rate and Rhythm Respiratory: No: Accessory Muscle Use, Rales, Rhonchi, SOB, SOB on Exertion, Stridor, Tachypnea, Wheezes ...Inspection: Yes: WNL ...Clubbing: No Gastrointestinal: Yes: Normal Bowel Sounds, Soft, Abdomen, Obese Renal/: Yes: WNL Musculoskeletal: Yes: WNL Extremities: Yes: Amputation, Erythema Edema: Yes Peripheral Pulses WNL: Yes Integumentary: Yes: Erythema, Venous Stasis Changes Neurological: Yes: Alert, Oriented ...Motor Strength: WNL Psychiatric: Yes: Alert, Oriented Labs: CBC, BMP 06/06/19 06:35 06/06/19 06:35 Imaging - Results Chest X-ray: Report Reviewed, Image Reviewed Problem List - Problems (1) Alcohol dependence Code(s): F10.20 - ALCOHOL DEPENDENCE, UNCOMPLICATED (2) Cellulitis Code(s): L03.90 - CELLULITIS, UNSPECIFIED Qualifiers: Site of cellulitis: extremity Site of cellulitis of extremity: lower extremity Laterality: unspecified laterality Qualified Code(s): L03.119 - Cellulitis of unspecified part of limb (3) Multiple open wounds of foot Code(s): S91.309A - UNSPECIFIED OPEN WOUND, UNSPECIFIED FOOT, INITIAL ENCOUNTER (4) Arthritis of both knees Code(s): M17.0 - BILATERAL PRIMARY OSTEOARTHRITIS OF KNEE (5) Hepatitis C Code(s): B19.20 - UNSPECIFIED VIRAL HEPATITIS C WITHOUT HEPATIC COMA Qualifiers: Viral hepatitis chronicity: unspecified Hepatic coma status: without hepatic coma Qualified Code(s): B19.20 - Unspecified viral hepatitis C without hepatic coma (6) Hypertension Code(s): I10 - ESSENTIAL (PRIMARY) HYPERTENSION Qualifiers: Hypertension type: essential hypertension Qualified Code(s): I10 - Essential (primary) hypertension (7) Methadone maintenance therapy patient Code(s): F11.20 - OPIOID DEPENDENCE, UNCOMPLICATED (8) Neuropathy Code(s): G62.9 - POLYNEUROPATHY, UNSPECIFIED (9) Obese Code(s): E66.9 - OBESITY, UNSPECIFIED Qualifiers: Obesity type: unspecified obesity type Obesity classification: adult class 1 (BMI 30 - 34.9) Body mass index: BMI 34.0-34.9 (10) Ulcer of foot Code(s): L97.509 - NON-PRESSURE CHRONIC ULCER OTH PRT UNSP FOOT W UNSP SEVERITY Qualifiers: Laterality: left Assessment/Plan IMP: Suspected OSAS R/O component of Central Sleep Apnea due to Methadone use (Biot's breathing) PLAN: Patient appears to be in Alcohol withdrawal at this time. Once clinically improved can order a sleep screen in the hospital or workup as outpatient O2 as needed No smoking Baseline outpatient PFTs Management of withdrawal symptoms per primary team I suspect a component of central sleep apnea due to elevated Bicarb Will eventually need a NPSG after discharge for a comprehensive evaluation Thank you. Dr Cline
[2019-06-07 12:58] LABS: BASO % 0.4 % (0-2.0); EOS % 0.1 % (0-4.5); HEMATOCRIT 44.4 % (35.4-49); LYMPH % 11.6 % (8-40); MCH 31.8 pg (25.7-33.7); MCHC 33.8 g/dl (32.0-35.9); MEAN CELL VOLUME 94.2 fl (80-96); MEAN PLT VOLUME 8.5 fl (7.5-11.1); MONO % 9.8 % (3.8-10.2); NEUT % 78.1 % (42.8-82.8); PLATELET COUNT 77 K/MM3 (134-434); RBC 4.72 M/mm3 (4.00-5.60); RDW 15.3 % (11.9-15.9); WHITE BLOOD COUNT 5.4 K/mm3 (4.0-10.0)
[2019-06-07 13:25] LABS: ALBUMIN 3.9 g/dl (3.4-5.0); BILIRUBIN,TOTAL 1.6 mg/dL (0.2-1); BLOOD UREA NITROGEN 19.9 mg/dL (7-18); CALCIUM 8.9 mg/dL (8.5-10.1); CREATININE 0.6 mg/dL (0.55-1.3); POTASSIUM 3.2 mmol/L (3.5-5.1); TOT PROT 8.7 g/dl (6.4-8.2)
[2019-06-07] MEDS: COLLAGENASE CLOSTRIDIUM HIST. 30 GRAMS TUBE TP SCH (16:32)
[2019-06-07 19:07] LABS: HEP B CORE AB, TOT Negative (Negative)
[2019-06-08] MEDS ORDERED: LORazepam 0.5 MG TABLET PO PRN
[2019-06-08 03:07] LABS: FIBROSIS SCORE. 0.78 (0.00-0.21); HCV ALPHA 2 MACRO CHART 356 mg/dL (110-276); NECRO.INFLAM ACT.SCORE 0.74 (0.00-0.17); NECROINFLAM. ACTIVITY GRADE A3-Severe activity (.)
[2019-06-08] MEDS ORDERED: LORazepam 0.5 MG TABLET PO SCH (05:00)
[2019-06-08] MEDS: diazePAM 5 MG TABLET PO SCH ×2 (05:52→18:32)
[2019-06-08] MEDS ORDERED: IBUPROFEN 400 MG TABLET (FP) PO ONE (05:59)
[2019-06-08 08:08] LABS: BASO % 0.7 % (0-2.0); EOS % 1.2 % (0-4.5); HEMATOCRIT 43.1 % (35.4-49); HEMOGLOBIN 14.3 GM/dL (11.7-16.9); LYMPH % 21.3 % (8-40); MCH 31.5 pg (25.7-33.7); MCHC 33.3 g/dl (32.0-35.9); MEAN CELL VOLUME 94.8 fl (80-96); MEAN PLT VOLUME 8.8 fl (7.5-11.1); MONO % 11.5 % (3.8-10.2); NEUT % 65.3 % (42.8-82.8); PLATELET COUNT 77 K/MM3 (134-434); RBC 4.55 M/mm3 (4.00-5.60); RDW 15.3 % (11.9-15.9)
--- NOTE | 2019-06-08 08:19 | DS ---
Physical Exam: SUBJECTIVE: Patient seen and examined OBJECTIVE: Vital Signs Period Temp Pulse Resp BP Sys/S[place] Pulse Ox Last 24 Hr 98.0 F-98.9 F 90-111 18-20 141-157/90-108 97-98 PHYSICAL EXAM GENERAL: The patient is awake, alert, and fully oriented, in no acute distress. HEAD: Normal with no signs of trauma. EYES: PERRL, extraocular movements intact, sclera anicteric, conjunctiva clear. ENT: Ears normal, nares patent, oropharynx clear without exudates, moist mucous membranes. NECK: Trachea midline, full range of motion, supple. LUNGS: Breath sounds equal, clear to auscultation bilaterally, no wheezes, no crackles, no accessory muscle use. HEART: Regular rate and rhythm, S1, S2 without murmur, rub or gallop. ABDOMEN: Soft, nontender, nondistended, normoactive bowel sounds, no guarding, no rebound, no hepatosplenomegaly, no masses. EXTREMITIES: 2+ pulses, warm, well-perfused, no edema. NEUROLOGICAL: Cranial nerves II through XII grossly intact. Normal speech, gait not observed. PSYCH: Normal mood, normal affect. SKIN: Warm, dry, normal turgor, no rashes or lesions noted. LABS Laboratory Results - last 24 hr 06/06/19 06/07/19 06/07/19 06:35 12:25 12:25 WBC 5.4 RBC 4.72 Hgb 15.0 Hct 44.4 MCV 94.2 MCH 31.8 MCHC 33.8 RDW 15.3 Plt Count 77 L D MPV 8.5 Absolute Neuts (auto) 4.2 Neutrophils % 78.1 D Lymphocytes % 11.6 D Monocytes % 9.8 Eosinophils % 0.1 D Basophils % 0.4 Nucleated RBC % 0 Sodium 136 Potassium 3.2 L Chloride 95 L Carbon Dioxide 33 H Anion Gap 8 BUN 19.9 H Creatinine 0.6 Est GFR (CKD-EPI)AfAm 130.27 Est GFR (CKD-EPI)NonAf 112.40 Random Glucose 120 H Calcium 8.9 Magnesium 2.0 Total Bilirubin 1.6 H AST 81 H ALT 83 H Alkaline Phosphatase 119 H Liver GGT 397 H Liver Total Bilirubin 0.6 Liver Fibrosis ALT 102 H Liver Haptoglobin 25 L Liver Fibrosis Score 0.78 H Necroinflammator Score 0.74 H Necroinflam Pat Score Necroinflammator Grade A3-severe activity Total Protein 8.7 H Albumin 3.9 Apolipoprotein A-1 235 H Hep A IgM Ab Confirm Negative Hepatitis A Ab Total Positive H Hep Bs Antigen Negative Hep Bs Antibody Non reactive Hep B Core Total Ab Negative Hep B Core IgM Ab Negative Hepatitis Be Antibody Negative Hepatitis Be Antigen Negative Liver Fibrosis Comment Liver Fibrosis Limits Liver Fibrosis Interp 06/08/19 06:40 WBC 6.0 RBC 4.55 Hgb 14.3 Hct 43.1 MCV 94.8 MCH 31.5 MCHC 33.3 RDW 15.3 Plt Count 77 L MPV 8.8 Absolute Neuts (auto) 3.9 Neutrophils % 65.3 Lymphocytes % 21.3 D Monocytes % 11.5 H Eosinophils % 1.2 D Basophils % 0.7 Nucleated RBC % 0 Sodium Potassium Chloride Carbon Dioxide Anion Gap BUN Creatinine Est GFR (CKD-EPI)AfAm Est GFR (CKD-EPI)NonAf Random Glucose Calcium Magnesium Total Bilirubin AST ALT Alkaline Phosphatase Liver GGT Liver Total Bilirubin Liver Fibrosis ALT Liver Haptoglobin Liver Fibrosis Score Necroinflammator Score Necroinflam Pat Score Necroinflammator Grade Total Protein Albumin Apolipoprotein A-1 Hep A IgM Ab Confirm Hepatitis A Ab Total Hep Bs Antigen Hep Bs Antibody Hep B Core Total Ab Hep B Core IgM Ab Hepatitis Be Antibody Hepatitis Be Antigen Liver Fibrosis Comment Liver Fibrosis Limits Liver Fibrosis Interp HOSPITAL COURSE: Date of Admission:06/06/19 Date of Discharge: 06/08/19 Discharge Summary Problems reviewed: Yes Reason For Visit: MULTIPLE OPEN WOUNDS OF FOOT,ALCOHOL ABUSE WITH Current Active Problems Alcohol abuse with uncomplicated intoxication (Acute) Alcohol dependence (Acute) Cellulitis (Acute) Cellulitis and abscess of foot (Acute) Condition: Stable - Instructions Referrals: Geovanny Cline MD [Staff Physician] - 2 Weeks (Sleep study) Lila Wagner DO [Staff Physician] - (Rehab) Williams Cohen MD [Non Staff, Medical] - 1 Week Disposition: TRANSFER ACUTE CARE/OTHER HOSP - Home Medications Comprehensive Discharge Medication List: Ambulatory Orders Methadone [Dolophine -] 40 mg PO DAILY 08/31/17 Nifedipine ER [Procardia XL -] 60 mg PO DAILY #30 tab.er.24 06/02/18 ATTENDING PHYSICIAN STATEMENT I saw and evaluated the patient. I reviewed the resident's note and discussed the case with the resident. I agree with the resident's findings and plan as documented. SUBJECTIVE: OBJECTIVE: ASSESSMENT AND PLAN:
[2019-06-08 08:40] LABS: ALBUMIN 3.6 g/dl (3.4-5.0); BLOOD UREA NITROGEN 18.4 mg/dL (7-18); CALCIUM 9.1 mg/dL (8.5-10.1); CREATININE 0.7 mg/dL (0.55-1.3); MAGNESIUM 1.8 mg/dL (1.8-2.4); TOT PROT 7.9 g/dl (6.4-8.2)
--- NOTE | 2019-06-08 08:47 | PN ---
Physical Exam: This note relates to 09/07 encounter which was entered on laptop but note not saved SUBJECTIVE: Patient seen and examined; increaed bili noted. Will trend another day. If continues to increase will treat for alcoholic hepatitis and consider GI consult. Trend MELD labs, calculate discriminate, etc. 10 sys ROS done and negative aside from HPI OBJECTIVE: Vital Signs Period Temp Pulse Resp BP Sys/S[place] Pulse Ox Last 24 Hr 98.0 F-98.9 F 90-111 18-20 141-157/90-108 97-98 GENERAL: The patient is awake, alert, and fully oriented, in no acute distress. HEAD: Normal with no signs of trauma. EYES: PERRL, extraocular movements intact, sclera anicteric, conjunctiva clear. No ptosis. ENT: Ears normal, nares patent, oropharynx clear without exudates, moist mucous membranes. NECK: Trachea midline, full range of motion, supple. LUNGS: Breath sounds equal, clear to auscultation bilaterally, no wheezes, no crackles, no accessory muscle use. HEART: Regular rate and rhythm, S1, S2 without murmur, rub or gallop. ABDOMEN: Soft, nontender, nondistended, normoactive bowel sounds, no guarding, no rebound, no hepatosplenomegaly, no masses. EXTREMITIES: 2+ pulses, warm, well-perfused, no edema. NEUROLOGICAL: Cranial nerves II through XII grossly intact. Normal speech, gait not observed. PSYCH: Normal mood, normal affect. WD symptoms improved; poor insight and judgment SKIN: Warm, dry, normal turgor, no rashes or lesions noted Laboratory Results - last 24 hr 06/06/19 06/07/19 06/07/19 06:35 12:25 12:25 WBC 5.4 RBC 4.72 Hgb 15.0 Hct 44.4 MCV 94.2 MCH 31.8 MCHC 33.8 RDW 15.3 Plt Count 77 L D MPV 8.5 Absolute Neuts (auto) 4.2 Neutrophils % 78.1 D Lymphocytes % 11.6 D Monocytes % 9.8 Eosinophils % 0.1 D Basophils % 0.4 Nucleated RBC % 0 Sodium 136 Potassium 3.2 L Chloride 95 L Carbon Dioxide 33 H Anion Gap 8 BUN 19.9 H Creatinine 0.6 Est GFR (CKD-EPI)AfAm 130.27 Est GFR (CKD-EPI)NonAf 112.40 Random Glucose 120 H Calcium 8.9 Magnesium 2.0 Total Bilirubin 1.6 H AST 81 H ALT 83 H Alkaline Phosphatase 119 H Liver GGT 397 H Liver Total Bilirubin 0.6 Liver Fibrosis ALT 102 H Liver Haptoglobin 25 L Liver Fibrosis Score 0.78 H Necroinflammator Score 0.74 H Necroinflam Pat Score Necroinflammator Grade A3-severe activity Total Protein 8.7 H Albumin 3.9 Apolipoprotein A-1 235 H Hep A IgM Ab Confirm Negative Hepatitis A Ab Total Positive H Hep Bs Antigen Negative Hep Bs Antibody Non reactive Hep B Core Total Ab Negative Hep B Core IgM Ab Negative Hepatitis Be Antibody Negative Hepatitis Be Antigen Negative Liver Fibrosis Comment Liver Fibrosis Limits Liver Fibrosis Interp 06/08/19 06/08/19 06:40 06:40 WBC 6.0 RBC 4.55 Hgb 14.3 Hct 43.1 MCV 94.8 MCH 31.5 MCHC 33.3 RDW 15.3 Plt Count 77 L MPV 8.8 Absolute Neuts (auto) 3.9 Neutrophils % 65.3 Lymphocytes % 21.3 D Monocytes % 11.5 H Eosinophils % 1.2 D Basophils % 0.7 Nucleated RBC % 0 Sodium 138 Potassium Chloride 96 L Carbon Dioxide 34 H Anion Gap 8 BUN 18.4 H Creatinine 0.7 Est GFR (CKD-EPI)AfAm 122.27 Est GFR (CKD-EPI)NonAf 105.50 Random Glucose 93 Calcium 9.1 Magnesium 1.8 Total Bilirubin 2.0 H AST 146 H ALT 110 H Alkaline Phosphatase 101 Liver GGT Liver Total Bilirubin Liver Fibrosis ALT Liver Haptoglobin Liver Fibrosis Score Necroinflammator Score Necroinflam Pat Score Necroinflammator Grade Total Protein 7.9 Albumin 3.6 Apolipoprotein A-1 Hep A IgM Ab Confirm Hepatitis A Ab Total Hep Bs Antigen Hep Bs Antibody Hep B Core Total Ab Hep B Core IgM Ab Hepatitis Be Antibody Hepatitis Be Antigen Liver Fibrosis Comment Liver Fibrosis Limits Liver Fibrosis Interp Active Medications Generic Name Dose Route Start Last Admin Trade Name Freq PRN Reason Stop Dose Admin Collagenase 1 applic 06/06/19 12:30 06/07/19 16:32 Santyl - TP 1 applic DAILY MARIXA Administration Protocol Diazepam 5 mg 06/08/19 06:00 06/08/19 05:52 Valium - PO 06/08/19 18:01 5 mg Q12H MARIXA Administration Diazepam 5 mg 06/09/19 06:00 Valium - PO 06/09/19 06:01 ONCE ONE Diazepam 10 mg 06/06/19 16:54 Valium - PO 06/09/19 16:53 Q4H PRN WITHDRAWAL(CONT SUBST) Folic Acid 1 mg 06/06/19 10:00 06/07/19 11:40 Folic Acid - PO 1 mg DAILY MARIXA Administration Melatonin 5 mg 06/07/19 02:54 06/07/19 22:12 Melatonin PO 5 mg HS PRN Administration INSOMNIA Nifedipine 60 mg 06/07/19 10:00 06/07/19 11:40 Procardia Xl - PO 60 mg DAILY MARIXA Administration Thiamine HCl 100 mg 06/06/19 10:00 06/07/19 11:40 Vitamin B1 - PO 100 mg DAILY MARIXA Administration ASSESSMENT/PLAN: Improved WD symptoms; gave 1x methadone; monitor bili as uptrending Problems include: -EtOH WD -Likely alcoholic hepatitis acutely -Cirrhosis -NEELAM likely -OBesity -PAD -Foot ulcers, OP MRI and podiatry. No need for inpatient abx per ID. Cultures NOT reliable. Full Code Visit type - Emergency Visit Emergency Visit: Yes ED Registration Date: 06/06/19 Care time: The patient presented to the Emergency Department on the above date and was hospitalized for further evaluation of their emergent condition. - New Patient This patient is new to me today: No - Critical Care Critical Care patient: No
[2019-06-08 08:51] LABS: POTASSIUM 2.8 mmol/L (3.5-5.1)
[2019-06-08] MEDS ORDERED: METHADONE HCL 10 MG TABLET PO ONE (09:30)
--- NOTE | 2019-06-08 09:35 | PN ---
<MiguelcammieFlynn alberto - Last Filed: 06/08/19 10:43> Physical Exam: Patient seen and examined, agree with resident note aside from as supplemented by myself. Verified okay historical information and exam findings personally. Reviewed all data. Subjectively the patient is improved with his alcohol withdrawal symptoms today. He does wish for with rehab. He is noted to have an uptrending bilirubin and LFTs. He is noted to be hypokalemic. We are aggressively repleting the potassium, in addition to this we are placing him on continued CIWA scale and plan to get him to [facility]. We will continue to trend the CMP , abdominal ultrasound was reviewed and its negative. We will calculate discriminate score, as this is likely involving his underlying alcoholic hepatitis.' O: VS, labs, imaging reviewed NAD, AAO, resting in bed RRR s1/2 Mild tender, ND, +BS CN2-12 wnl, no fnd Normal mood, appropriate behavior, not agitated No skin lesions or breakdown noted Problems include: Problems include: -EtOH WD -Likely alcoholic hepatitis acutely with HAV Ab+; acute HAV pannel pending and consulted GI. US reviewed. Will defer need for MRCP to their service. Lipase pending -Cirrhosis -NEELAM likely -OBesity -PAD -Foot ulcers, OP MRI and podiatry. No need for inpatient abx per ID. Cultures NOT reliable. ATTENDING PHYSICIAN STATEMENT I saw and evaluated the patient. I reviewed the resident's note and discussed the case with the resident. I agree with the resident's findings and plan as documented. SUBJECTIVE: OBJECTIVE: ASSESSMENT AND PLAN: <Williams Rowley - Last Filed: 06/08/19 21:16> Physical Exam: SUBJECTIVE: Pt improved since previous day (withdrawal symptoms). Pt wishes to continue rehab at [facility]. Denies any other symptoms at this time OBJECTIVE: Vital Signs Period Temp Pulse Resp BP Sys/[place] Pulse Ox Last 24 Hr 98.0 F-98.9 F 90-111 18-20 141-157/90-108 98 GENERAL: The patient is awake, alert, and fully oriented, in no acute distress. LUNGS: CTA bilaterally, no wheezes, no crackles, no accessory muscle use. HEART: Regular rate and rhythm, S1, S2 without murmur ABDOMEN: Soft, nontender, nondistended, normoactive bowel sounds, no guarding EXTREMITIES: 2+ pulses, warm, well-perfused, no edema. PSYCH: Normal mood, normal affect. Calm SKIN: Warm, dry, normal turgor, no rashes or lesions noted Laboratory Results - last 24 hr 06/06/19 06/07/19 06/07/19 06:35 12:25 12:25 WBC 5.4 RBC 4.72 Hgb 15.0 Hct 44.4 MCV 94.2 MCH 31.8 MCHC 33.8 RDW 15.3 Plt Count 77 L D MPV 8.5 Absolute Neuts (auto) 4.2 Neutrophils % 78.1 D Lymphocytes % 11.6 D Monocytes % 9.8 Eosinophils % 0.1 D Basophils % 0.4 Nucleated RBC % 0 Sodium 136 Potassium 3.2 L Chloride 95 L Carbon Dioxide 33 H Anion Gap 8 BUN 19.9 H Creatinine 0.6 Est GFR (CKD-EPI)AfAm 130.27 Est GFR (CKD-EPI)NonAf 112.40 Random Glucose 120 H Calcium 8.9 Magnesium 2.0 Total Bilirubin 1.6 H AST 81 H ALT 83 H Alkaline Phosphatase 119 H Liver GGT 397 H Liver Total Bilirubin 0.6 Liver Fibrosis ALT 102 H Liver Haptoglobin 25 L Liver Fibrosis Score 0.78 H Necroinflammator Score 0.74 H Necroinflam Pat Score Necroinflammator Grade A3-severe activity Total Protein 8.7 H Albumin 3.9 Apolipoprotein A-1 235 H Hep A IgM Ab Confirm Negative Hepatitis A Ab Total Positive H Hep Bs Antigen Negative Hep Bs Antibody Non reactive Hep B Core Total Ab Negative Hep B Core IgM Ab Negative Hepatitis Be Antibody Negative Hepatitis Be Antigen Negative Liver Fibrosis Comment Liver Fibrosis Limits Liver Fibrosis Interp 06/08/19 06/08/19 06:40 06:40 WBC 6.0 RBC 4.55 Hgb 14.3 Hct 43.1 MCV 94.8 MCH 31.5 MCHC 33.3 RDW 15.3 Plt Count 77 L MPV 8.8 Absolute Neuts (auto) 3.9 Neutrophils % 65.3 Lymphocytes % 21.3 D Monocytes % 11.5 H Eosinophils % 1.2 D Basophils % 0.7 Nucleated RBC % 0 Sodium 138 Potassium 2.8 L* Chloride 96 L Carbon Dioxide 34 H Anion Gap 8 BUN 18.4 H Creatinine 0.7 Est GFR (CKD-EPI)AfAm 122.27 Est GFR (CKD-EPI)NonAf 105.50 Random Glucose 93 Calcium 9.1 Magnesium 1.8 Total Bilirubin 2.0 H AST 146 H ALT 110 H Alkaline Phosphatase 101 Liver GGT Liver Total Bilirubin Liver Fibrosis ALT Liver Haptoglobin Liver Fibrosis Score Necroinflammator Score Necroinflam Pat Score Necroinflammator Grade Total Protein 7.9 Albumin 3.6 Apolipoprotein A-1 Hep A IgM Ab Confirm Hepatitis A Ab Total Hep Bs Antigen Hep Bs Antibody Hep B Core Total Ab Hep B Core IgM Ab Hepatitis Be Antibody Hepatitis Be Antigen Liver Fibrosis Comment Liver Fibrosis Limits Liver Fibrosis Interp Active Medications Generic Name Dose Route Start Last Admin Trade Name Freq PRN Reason Stop Dose Admin Collagenase 1 applic 06/06/19 12:30 06/07/19 16:32 Santyl - TP 1 applic DAILY MARIXA Administration Protocol Diazepam 5 mg 06/08/19 06:00 06/08/19 05:52 Valium - PO 06/08/19 18:01 5 mg Q12H MARIXA Administration Diazepam 5 mg 06/09/19 06:00 Valium - PO 06/09/19 06:01 ONCE ONE Diazepam 10 mg 06/06/19 16:54 Valium - PO 06/09/19 16:53 Q4H PRN WITHDRAWAL(CONT SUBST) Folic Acid 1 mg 06/06/19 10:00 06/07/19 11:40 Folic Acid - PO 1 mg DAILY MARIXA Administration Potassium Chloride 10 meq in 100 mls @ 100 mls/hr 06/08/19 10:00 Potassium Chloride 10 Meq Premix Ivpb - IVPB 06/08/19 12:59 Q60M MARIXA Melatonin 5 mg 06/07/19 02:54 06/07/19 22:12 Melatonin PO 5 mg HS PRN Administration INSOMNIA Nifedipine 60 mg 06/07/19 10:00 06/07/19 11:40 Procardia Xl - PO 60 mg DAILY MARIXA Administration Potassium Chloride 40 meq 06/08/19 10:00 K-Dur - PO 06/08/19 10:01 ONCE ONE Thiamine HCl 100 mg 06/06/19 10:00 06/07/19 11:40 Vitamin B1 - PO 100 mg DAILY MARIXA Administration ASSESSMENT/PLAN: Alcohol Abuse Alcoholic hepatitis Sleep apnea suspected Peripheral arterial disease Lower extremity ulcerations --LFTs increasing; will have to monitor --GI consult --Likely MRCP to r/o obstructive biliary disease --Will need sleep study referral upon discharge --Continue Santyl for lower extremity wounds; no need to ABX due to lack of signs of infection --Continue Valium protocol --Continue Procardia 60mg qdaily --Methadone 10mg once today FEN: Fluilds: PO Electrolyte abnormalities: Hypokalemia; replete Kdur and Kcl Nutrition: Regular PPX: DVT - SCDs Dispo: monitor for LFTs Case discussed with Dr. Carmen Rowley, DO - IM PGY-3 Visit type - Emergency Visit Emergency Visit: Yes ED Registration Date: 06/06/19 Care time: The patient presented to the Emergency Department on the above date and was hospitalized for further evaluation of their emergent condition. - New Patient This patient is new to me today: No - Critical Care Critical Care patient: No ATTENDING PHYSICIAN STATEMENT I saw and evaluated the patient. I reviewed the resident's note and discussed the case with the resident. I agree with the resident's findings and plan as documented. SUBJECTIVE: OBJECTIVE: ASSESSMENT AND PLAN:
[2019-06-08] MEDS ORDERED: POTASSIUM CHLORIDE TABS 20 MEQ TABLET.ER (FP) PO ONE (10:00)
[2019-06-08 10:25] LABS: INR 1.13 (0.83-1.09); PROTHROMBIN TIME (PATIENT) 13.4 SEC (9.7-13.0)
[2019-06-08] MEDS: NIFEdipine E.R 60 MG TABLET (UD) PO SCH (10:46)
[2019-06-08] MEDS: KCL 10 MEQ IVPB 10 MEQ/100 ML INFUS.BAG IVPB SCH ×3 (10:46→18:56)
[2019-06-08] MEDS: THIAMINE HCL 100 MG TABLET (FP) PO SCH (10:47)
[2019-06-08] MEDS: FOLIC ACID 1 MG TABLET (FP) PO SCH (10:47)
[2019-06-08] MEDS ORDERED: MAGNESIUM SULFATE IN WATER 2 GM/50 ML IVPB IVPB ONE (11:00)
[2019-06-08] MEDS: diazePAM 5 MG TABLET PO PRN ×2 (11:03→21:41)
[2019-06-08] MEDS: POTASSIUM CHLORIDE ORAL LIQUID 20 MEQ/15 ML PO ONE ×2 (11:42→15:59)
[2019-06-08] MEDS ORDERED: PT OWN MED DRAWER 7, Y5N ONE (11:56)
[2019-06-08 11:58] LABS: BILIRUBIN,DIRECT 0.5 mg/dL (0.0-0.2)
--- NOTE | 2019-06-08 12:45 | PN ---
Progress Note (short form) - Note Progress Note: Patient seen in bed with dressings intact b/l feet. vss +grade 2-3 wounds b/l feet, -drainage, +granulation, r/o om grade 2-3 wounds b/l feet chronic Read and appreciate vascular note. Continue santyl. HBO consult requested by vascular. MRI ordered today. will follow. Abx as per ID.
[2019-06-08 15:28] LABS: BLOOD UREA NITROGEN 24.8 mg/dL (7-18); CALCIUM 8.9 mg/dL (8.5-10.1); CREATININE 0.8 mg/dL (0.55-1.3); POTASSIUM 3.4 mmol/L (3.5-5.1)
--- NOTE | 2019-06-08 15:30 | CON.GI ---
Consult Consult Specialty:: Gastroenterology Referred by:: Dr. Morales Reason for Consultation:: ETOH hepatitis, elevated LFTs - History of Present Illness History of Present Illness: 58yo male h/o alcohol use disorder, chronic opioid use on methadone, neuropathy , HCV undergoing detox sent from [facility] for evaluation of B/L foot ulcers asked to evaluate for hepatitis and elevated LFTs. Pt reports feeling well, reports discomfort related to foot ulcers otherwise no complaints. Reports drinking 10-15 beers daily for more than 15 years, last drink on Thursday. Wants to pursue rehab. Denies known h/o liver disease. Appetite good, denies abdominal pain, n/v. Reports regular brown bm, denies recent change in bowel pattern. Denies NSAID use. Denies smoking or recent recreational drug use. - History Source History Provided By: Patient Limitations to Obtaining History: No Limitations - Past Medical History Pulmonary: Yes: Bronchitis, Sleep Apnea. No: Asthma, Cancer, COPD, O2 Dependent , Pneumonia, Previously Intubated, Pulmonary Embolus, Pulmonary Fibrosis - Alcohol/Substance Use Hx Alcohol Use: Yes (DAILY) - Smoking History Smoking history: Unknown if ever smoked Have you smoked in the past 12 months: No Aproximately how many cigarettes per day: 12 If you are a former smoker, when did you quit?: 2016 Home Medications - Allergies Allergies/Adverse Reactions: Allergies Allergy/AdvReac Type Severity Reaction Status Date / Time No Known Allergies Allergy Verified 06/05/19 22:19 - Home Medications Home Medications: Ambulatory Orders Methadone [Dolophine -] 40 mg PO DAILY 08/31/17 Nifedipine ER [Procardia XL -] 60 mg PO DAILY #30 tab.er.24 06/02/18 Review of Systems - Review of Systems Constitutional: reports: No Symptoms HENT: reports: No Symptoms Respiratory: reports: No Symptoms Gastrointestinal: reports: No Symptoms Physical Exam-GI Vital Signs: Vital Signs Temperature 98.7 F 06/08/19 12:00 Pulse Rate 90 06/08/19 12:00 Respiratory Rate 20 06/08/19 12:00 Blood Pressure 123/80 06/08/19 12:00 O2 Sat by Pulse Oximetry (%) 99 06/08/19 09:00 Constitutional: Yes: No Distress, Calm Cardiovascular: Yes: WNL, Regular Rate and Rhythm Respiratory: Yes: WNL, Regular, CTA Bilaterally ...Palpate: Yes: Other (Abd soft, nt, nd) Labs: CBC, BMP 06/08/19 06:40 06/08/19 14:20 INR, PTT INR 1.13 (0.83-1.09) H 06/08/19 09:35 Problem List - Problems (1) Elevated LFTs Assessment/Plan: 58yo male h/o alcohol use disorder, chronic opioid use on methadone, neuropathy , HCV undergoing detox sent from [facility] for evaluation of B/L foot ulcers asked to evaluate for hepatitis and elevated LFTs. Abd US revealing hepatosplenomegatly and fatty liver infiltration, no biliary dilation. Labs are suggestive of advanced liver disease likely cirrhosis secondary to alcohol. Hepatitis A markers are consistent with prior exposure (not acute, IgM negative) . LFTs fluctuating since 08/2017 as reviewed in records. -Recommend continue to monitor LFT trend -Check HCV ab -Avoid nonessential hepatoxic medications -If bili continues to rise would consider MRCP though appears mixed/ unconjugated and likely alcoholic liver disease, does not appear as biliary obstructive process -Pt would require EGD for variceal screening once acute issues resolved. Will also need screening colonoscopy. -Strongly emphasized etoh abstinence - pt willing to pursue rehab -Pt will also require HBV vaccination Code(s): R94.5 - ABNORMAL RESULTS OF LIVER FUNCTION STUDIES
[2019-06-08 16:08] VITALS: BMI 32.1
[2019-06-08] MEDS: COLLAGENASE CLOSTRIDIUM HIST. 30 GRAMS TUBE TP SCH (16:30)
[2019-06-08] MEDS: IBUPROFEN 400 MG TABLET (FP) PO PRN (20:19)
[2019-06-08] MEDS: MELATONIN 5 MG TABLETS PO PRN (21:41)
[2019-06-08] MEDS ORDERED: POTASSIUM CHLORIDE TABS 20 MEQ TABLET.ER (FP) PO SCH (22:00)
[2019-06-09] MEDS ORDERED: LORazepam 0.5 MG TABLET PO ONE (05:00)
[2019-06-09] MEDS ORDERED: diazePAM 5 MG TABLET PO ONE (06:00)
[2019-06-09 09:46] LABS: HEMATOCRIT 38.5 % (35.4-49); HEMOGLOBIN 12.9 GM/dL (11.7-16.9); MCH 32.1 pg (25.7-33.7); MCHC 33.6 g/dl (32.0-35.9); MEAN CELL VOLUME 95.6 fl (80-96); MEAN PLT VOLUME 8.8 fl (7.5-11.1); PLATELET COUNT 77 K/MM3 (134-434); RBC 4.02 M/mm3 (4.00-5.60); RDW 15.3 % (11.9-15.9)
[2019-06-09 10:11] LABS: ALBUMIN 3.6 g/dl (3.4-5.0); BILIRUBIN,DIRECT 0.5 mg/dL (0.0-0.2); BILIRUBIN,TOTAL 1.5 mg/dL (0.2-1); BLOOD UREA NITROGEN 19.6 mg/dL (7-18); CREATININE 0.7 mg/dL (0.55-1.3); POTASSIUM 3.1 mmol/L (3.5-5.1); TOT PROT 7.6 g/dl (6.4-8.2)
[2019-06-09] MEDS: THIAMINE HCL 100 MG TABLET (FP) PO SCH (10:19)
[2019-06-09] MEDS: NIFEdipine E.R 60 MG TABLET (UD) PO SCH (10:19)
[2019-06-09] MEDS: FOLIC ACID 1 MG TABLET (FP) PO SCH (10:19)
--- NOTE | 2019-06-09 12:50 | PN.GI ---
GI Progress Note Subjective: No abdominal pain Last Drink this past Thursday 10-15 beers per day "for many,many years" - Objective Vital Signs: Vital Signs Temperature 98.2 F 06/09/19 09:58 Pulse Rate 97 H 06/09/19 09:58 Respiratory Rate 18 06/09/19 09:58 Blood Pressure 153/106 H 06/09/19 09:58 O2 Sat by Pulse Oximetry (%) 98 06/09/19 10:20 Constitutional: Calm Eyes: No: Sclera Icterus Cardiovascular: Yes: Tachycardia Respiratory: Yes: CTA Bilaterally Gastrointestinal Inspection: No: Distention ...Auscultate: Yes: Normoactive Bowel Sounds ...Palpate: Yes: Soft. No: Hepatomegaly, Splenomegaly, Tenderness Edema: No (No LE edema) Neurological: Yes: Alert Labs: CBC, BMP 06/09/19 07:40 06/09/19 07:40 INR, PTT INR 1.13 (0.83-1.09) H 06/08/19 09:35 Hepatic Panel Total Bilirubin 1.5 mg/dL (0.2-1) H 06/09/19 07:40 Direct Bilirubin 0.5 mg/dL (0.0-0.2) H 06/09/19 07:40 AST 96 U/L (15-37) H 06/09/19 07:40 ALT 107 U/L (13-61) H 06/09/19 07:40 Alkaline Phosphatase 96 U/L (45-117) 06/09/19 07:40 Albumin 3.6 g/dl (3.4-5.0) 06/09/19 07:40 Problem List - Problems (1) Elevated LFTs Assessment/Plan: Improving. Suspect secondary to alcoholic liver disease. No abdominal pain or dilated bile ducts on US Monitor for now Avoid hepatotoxic agents If continued rise. Triple phase MRI/MRCP of abdomen with and without contrast to further evaluate hepatic parenchyma and biliary tract Will need upper endoscopy to screen for varices when current infectious issues are resolved and continued outpatient care. Patient lives in [place]. If he has a PMD there, could try to coordinate follow-up with a local communications field technician. If not, can refer to office. Will need hepatitis B vaccination as recent serologies not relfecting immunity Reenforced the need for complete alcohol cessation. Explained that if he continues to drink, He will likely from complications of his alcoholism. Code(s): R94.5 - ABNORMAL RESULTS OF LIVER FUNCTION STUDIES
[2019-06-09] MEDS: IBUPROFEN 400 MG TABLET (FP) PO PRN ×2 (14:13→23:47)
[2019-06-09] MEDS: COLLAGENASE CLOSTRIDIUM HIST. 30 GRAMS TUBE TP SCH (14:14)
[2019-06-09] MEDS ORDERED: POTASSIUM CHLORIDE TABS 20 MEQ TABLET.ER (FP) PO ONE (21:38)
[2019-06-09] MEDS: MELATONIN 5 MG TABLETS PO PRN (22:01)
[2019-06-10] MEDS ORDERED: IBUPROFEN 400 MG TABLET (FP) PO ONE (02:30)
[2019-06-10] MEDS: IBUPROFEN 400 MG TABLET (FP) PO PRN (09:34)
[2019-06-10 09:36] LABS: ALBUMIN 3.6 g/dl (3.4-5.0); BILIRUBIN,TOTAL 1.3 mg/dL (0.2-1); BLOOD UREA NITROGEN 17.2 mg/dL (7-18); CALCIUM 8.9 mg/dL (8.5-10.1); CREATININE 0.7 mg/dL (0.55-1.3); POTASSIUM 4.1 mmol/L (3.5-5.1); TOT PROT 8.2 g/dl (6.4-8.2)
--- NOTE | 2019-06-10 10:07 | PN ---
Physical Exam: *THIS NOTE IS BEING COMPLETED 06/10 BUT APPLIES TO THE DAY OF 06/09; late note due to overnight coverage* SUBJECTIVE: Patient seen and examined; downtrending LFTs. Improved WD sx. No seizure activity noted. Discussed with GI and will likely DC tomorrow. 10 sys RS done and negative aside from HPI OBJECTIVE: Vital Signs Period Temp Pulse Resp BP Sys/[place] Pulse Ox Last 24 Hr 97.7 F-98.7 F 82-107 18-20 148-158/87-109 96-99 GENERAL: The patient is awake, alert, and fully oriented, in no acute distress. HEAD: Normal with no signs of trauma. EYES: PERRL, extraocular movements intact, sclera anicteric, conjunctiva clear. No ptosis. ENT: Ears normal, nares patent, oropharynx clear without exudates, moist mucous membranes. NECK: Trachea midline, full range of motion, supple. LUNGS: Breath sounds equal, clear to auscultation bilaterally, no wheezes, no crackles, no accessory muscle use. HEART: Regular rate and rhythm, S1, S2 without murmur, rub or gallop. ABDOMEN: Soft, nontender, nondistended, normoactive bowel sounds, no guarding, no rebound, no hepatosplenomegaly, no masses. EXTREMITIES: 2+ pulses, warm, well-perfused, no edema. NEUROLOGICAL: Cranial nerves II through XII grossly intact. Normal speech, gait not observed. PSYCH: Normal mood, normal affect. SKIN: Warm, dry, normal turgor, no rashes or lesions noted Laboratory Results - last 24 hr 06/09/19 06/10/19 07:40 08:20 Sodium 138 141 Potassium 3.1 L 4.1 Chloride 101 105 Carbon Dioxide 31 27 Anion Gap 6 L 8 BUN 19.6 H 17.2 Creatinine 0.7 0.7 Est GFR (CKD-EPI)AfAm 122.27 122.27 Est GFR (CKD-EPI)NonAf 105.50 105.50 Random Glucose 91 99 Calcium 9.0 8.9 Total Bilirubin 1.5 H 1.3 H Direct Bilirubin 0.5 H AST 96 H 100 H ALT 107 H 131 H Alkaline Phosphatase 96 99 Total Protein 7.6 8.2 Albumin 3.6 3.6 Active Medications Generic Name Dose Route Start Last Admin Trade Name Freq PRN Reason Stop Dose Admin Collagenase 1 applic 10/14/19 12:30 06/09/19 14:14 Santyl - TP 1 applic DAILY MARIXA Administration Protocol Folic Acid 1 mg 06/06/19 10:00 06/09/19 10:19 Folic Acid - PO 1 mg DAILY MARIXA Administration Ibuprofen 400 mg 06/08/19 19:40 06/10/19 09:34 Motrin - PO 400 mg Q6H PRN Administration PAIN LEVEL 1-5 Melatonin 5 mg 06/07/19 02:54 06/09/19 22:01 Melatonin PO 5 mg HS PRN Administration INSOMNIA Nifedipine 60 mg 06/07/19 10:00 06/09/19 10:19 Procardia Xl - PO 60 mg DAILY MARIXA Administration Thiamine HCl 100 mg 06/06/19 10:00 06/09/19 10:19 Vitamin B1 - PO 100 mg DAILY MARIXA Administration ASSESSMENT/PLAN: Patient presents for elevaterd LFTs, EtOH abuse/WD. WD symptoms greatly improved. MRI negative for osteo; possible cellulitis with marked clinical improvement. ID does not believe there is an acute cellulitis due to lack of clinical evidence but we may elect to treat due to risk factors should he have skin breakdown given his social situation. Problems include: -EtOH WD and abuse; improved and extensive counseling provided -Transaminitis; bili downtrending and no obs on US. If remains down can likely go home but will need close PCP and GI followup for potential MRCP -Cirrhosis secondary to ETOH; followup with GI recs and EtOH cessasion. -NEELAM likely; eval ordered -Obesity -PAD -Foot ulcers, nonurgent podiatry FU. No need for inpatient abx per ID. Cultures NOT reliable as superficial. Full Code Visit type - Emergency Visit Emergency Visit: No - New Patient This patient is new to me today: No - Critical Care Critical Care patient: No
[2019-06-10] MEDS ORDERED: METHADONE HCL 40 MG DISPERSABLE TABLET PO ONE (11:07)
--- NOTE | 2019-06-10 11:14 | DS ---
Physical Exam: SUBJECTIVE: Patient seen and examined OBJECTIVE: Vital Signs Period Temp Pulse Resp BP Sys/[place] Pulse Ox Last 24 Hr 97.7 F-98.7 F 82-107 18-20 148-158/87-109 96-99 PHYSICAL EXAM GENERAL: The patient is awake, alert, and fully oriented, in no acute distress. HEAD: Normal with no signs of trauma. EYES: PERRL, extraocular movements intact, sclera anicteric, conjunctiva clear. ENT: Ears normal, nares patent, oropharynx clear without exudates, moist mucous membranes. NECK: Trachea midline, full range of motion, supple. LUNGS: Breath sounds equal, clear to auscultation bilaterally, no wheezes, no crackles, no accessory muscle use. HEART: Regular rate and rhythm, S1, S2 without murmur, rub or gallop. ABDOMEN: Soft, nontender, nondistended, normoactive bowel sounds, no guarding, no rebound, no hepatosplenomegaly, no masses. EXTREMITIES: 2+ pulses, warm, well-perfused, no edema. NEUROLOGICAL: Cranial nerves II through XII grossly intact. Normal speech, gait not observed. PSYCH: Normal mood, normal affect. SKIN: Warm, dry, normal turgor, no rashes or lesions noted. LABS Laboratory Results - last 24 hr 06/10/19 08:20 Sodium 141 Potassium 4.1 Chloride 105 Carbon Dioxide 27 Anion Gap 8 BUN 17.2 Creatinine 0.7 Est GFR (CKD-EPI)AfAm 122.27 Est GFR (CKD-EPI)NonAf 105.50 Random Glucose 99 Calcium 8.9 Total Bilirubin 1.3 H AST 100 H ALT 131 H Alkaline Phosphatase 99 Total Protein 8.2 Albumin 3.6 HOSPITAL COURSE: Date of Admission:06/06/19 Date of Discharge: 06/10/19 <Williams Rowley - Last Filed: 06/10/19 11:14> Physical Exam: SUBJECTIVE: Patient seen and examined OBJECTIVE: Vital Signs Period Temp Pulse Resp BP Sys/[place] Pulse Ox Last 24 Hr 97.7 F-98.7 F 82-107 18-20 146-158/87-109 96-99 PHYSICAL EXAM GENERAL: The patient is awake, alert, and fully oriented, in no acute distress. HEAD: Normal with no signs of trauma. EYES: PERRL, extraocular movements intact, sclera anicteric, conjunctiva clear. ENT: Ears normal, nares patent, oropharynx clear without exudates, moist mucous membranes. NECK: Trachea midline, full range of motion, supple. LUNGS: Breath sounds equal, clear to auscultation bilaterally, no wheezes, no crackles, no accessory muscle use. HEART: Regular rate and rhythm, S1, S2 without murmur, rub or gallop. ABDOMEN: Soft, nontender, nondistended, normoactive bowel sounds, no guarding, no rebound, no hepatosplenomegaly, no masses. EXTREMITIES: 2+ pulses, warm, well-perfused, no edema. NEUROLOGICAL: Cranial nerves II through XII grossly intact. Normal speech, gait not observed. PSYCH: Normal mood, normal affect. SKIN: Warm, dry, normal turgor, no rashes or lesions noted. LABS Laboratory Results - last 24 hr 06/10/19 08:20 Sodium 141 Potassium 4.1 Chloride 105 Carbon Dioxide 27 Anion Gap 8 BUN 17.2 Creatinine 0.7 Est GFR (CKD-EPI)AfAm 122.27 Est GFR (CKD-EPI)NonAf 105.50 Random Glucose 99 Calcium 8.9 Total Bilirubin 1.3 H AST 100 H ALT 131 H Alkaline Phosphatase 99 Total Protein 8.2 Albumin 3.6 HOSPITAL COURSE: Date of Admission:06/06/19 Date of Discharge: 06/10/19 Patient presents for elevaterd LFTs, EtOH abuse/WD. WD symptoms greatly improved. MRI negative for osteo; possible cellulitis with marked clinical improvement. ID does not believe there is an acute cellulitis due to lack of clinical evidence but we may elect to treat due to risk factors should he have skin breakdown given his social situation. Problems include: -EtOH WD and abuse; improved and extensive counseling provided -Transaminitis; bili downtrending and no obs on US. If remains down can likely go home but will need close PCP and GI followup for potential MRCP. Will likely remain overnight if no bed so provider in AM must FU but did d/w resident team who cleared with indicated subspecialist. -Cirrhosis secondary to ETOH; followup with GI recs and EtOH cessasion. -NEELAM likely; eval ordered -Obesity -PAD -Foot ulcers, nonurgent podiatry FU. No need for inpatient abx per ID. Cultures NOT reliable as superficial. DC planning and followups discussed with resident team. Minutes to complete discharge: 33 <Flynn Morales - Last Filed: 06/22/19 02:55> Discharge Summary Problems reviewed: Yes Reason For Visit: MULTIPLE OPEN WOUNDS OF FOOT,ALCOHOL ABUSE WITH Current Active Problems Alcohol abuse with uncomplicated intoxication (Acute) Alcohol dependence (Acute) Cellulitis (Acute) Cellulitis and abscess of foot (Acute) Elevated LFTs (Acute) - Home Medications Comprehensive Discharge Medication List: Ambulatory Orders Methadone [Dolophine -] 40 mg PO DAILY 08/31/17 Nifedipine ER [Procardia XL -] 60 mg PO DAILY #30 tab.er.24 06/02/18 <Williams Rowley - Last Filed: 06/10/19 11:14> Current Active Problems Alcohol abuse with uncomplicated intoxication (Acute) Alcohol dependence (Acute) Cellulitis (Acute) Cellulitis and abscess of foot (Acute) Elevated LFTs (Acute) - Home Medications Comprehensive Discharge Medication List: Ambulatory Orders Methadone [Dolophine -] 40 mg PO DAILY 08/31/17 Nifedipine ER [Procardia XL -] 60 mg PO DAILY #30 tab.er.24 06/02/18 <CarmenFlynn - Last Filed: 06/22/19 02:55> Condition: Improved - Instructions Diet, Activity, Other Instructions: You were seen due to your wounds, alcohol withdrawal, and increased liver enzymes. You completed your alcohol detoxification here at the hospital and your liver enzymes are decreasing. Medication changes: Continue to take Procardia 60mg qdaily Continue to take Ibuprofen and Tylenol over the counter for your back pain Continue to visit your Methadone clinic for your daily dose Follow-up: Please follow-up with your Primary care physician, Dr. Villa. Please follow-up with Dr gurrola for your rehab needs and continue with your methadone clinic Please follow-up with Dr. Judy Mandujano to make sure your liver enzymes go back down to normal. Follow-up with Dr. Calle for your foot wounds where he will update you on your MRI Referrals: Gwyn Mandujano DO [Staff Physician] - Geovanny Cline MD [Staff Physician] - 2 Weeks (Sleep study) Jm Calle DPM [Staff Physician] - 1 Week (Feet care; and hyperbaric referral) Williams Cohen MD [Non Staff, Medical] - 1 Week Lila Gurrola DO [Staff Physician] - (Rehab) Disposition: HOME This patient is new to me today: No Emergency Visit: No Critical Care patient: No - Discharge Referral Referred to [facility] Med P.C[facility] Yes Physician Referral: Pérez Franco MD (Int Med) <Flynn Morales - Last Filed: 06/22/19 02:55> ATTENDING PHYSICIAN STATEMENT I saw and evaluated the patient. I reviewed the resident's note and discussed the case with the resident. I agree with the resident's findings and plan as documented. SUBJECTIVE: OBJECTIVE: ASSESSMENT AND PLAN: <Williams Rowley - Last Filed: 06/10/19 11:14> ATTENDING PHYSICIAN STATEMENT I saw and evaluated the patient. I reviewed the resident's note and discussed the case with the resident. I agree with the resident's findings and plan as documented. SUBJECTIVE: OBJECTIVE: ASSESSMENT AND PLAN: <Flynn Morales - Last Filed: 06/22/19 02:55>
[2019-06-10] MEDS: FOLIC ACID 1 MG TABLET (FP) PO SCH (12:35)
[2019-06-10] MEDS: NIFEdipine E.R 60 MG TABLET (UD) PO SCH (12:35)
[2019-06-10] MEDS: THIAMINE HCL 100 MG TABLET (FP) PO SCH (12:36)
[2019-06-10] MEDS: COLLAGENASE CLOSTRIDIUM HIST. 30 GRAMS TUBE TP SCH (15:22)
[2019-06-11] MEDS: IBUPROFEN 400 MG TABLET (FP) PO PRN ×2 (07:07→14:25)
--- NOTE | 2019-06-11 09:20 | PN ---
Progress Note (short form) - Note Progress Note: Patient seen in bed with dressings intact b/l feet. vss +grade 2-3 wounds b/l feet, -drainage, +granulation, mri negative left r/o om grade 2-3 wounds b/l feet chronic Continue santyl bilateral feet. HBO consult requested by vascular. MRI ordered today for right foot. will follow. Abx as per ID. Upon dc follow up in wound care.
--- NOTE | 2019-06-11 10:17 | PN ---
Progress Note, Physician Chief Complaint: pt is doing well, no pain, no fever,no chills, no cp, - Current Medication List Current Medications: Active Medications Collagenase (Santyl -) 1 applic TP DAILY [facility]; Protocol Last Admin: 06/10/19 15:22 Dose: 1 applic Folic Acid (Folic Acid -) 1 mg PO DAILY [facility] Last Admin: 06/10/19 12:35 Dose: 1 mg Ibuprofen (Motrin -) 400 mg PO Q6H PRN PRN Reason: PAIN LEVEL 1-5 Last Admin: 06/11/19 07:07 Dose: 400 mg Melatonin (Melatonin) 5 mg PO HS PRN PRN Reason: INSOMNIA Last Admin: 06/09/19 22:01 Dose: 5 mg Nifedipine (Procardia Xl -) 60 mg PO DAILY [facility] Last Admin: 06/10/19 12:35 Dose: 60 mg Thiamine HCl (Vitamin B1 -) 100 mg PO DAILY [facility] Last Admin: 06/10/19 12:36 Dose: 100 mg - Objective Vital Signs: Vital Signs Temperature 98.1 F 06/11/19 05:59 Pulse Rate 79 06/11/19 05:59 Respiratory Rate 20 06/11/19 05:59 Blood Pressure 158/102 H 06/11/19 05:59 O2 Sat by Pulse Oximetry (%) 99 06/10/19 21:00 Constitutional: Yes: Well Nourished Eyes: Yes: EOM Intact HENT: Yes: WNL Neck: Yes: WNL Cardiovascular: Yes: Regular Rate and Rhythm Gastrointestinal: Yes: WNL Musculoskeletal: Yes: WNL (dressing trung wounds feet,) Edema: No Wound/Incision: Yes: Dressing Dry and Intact, Other (feet wounds,) Neurological: Yes: WNL Labs: CBC, BMP 06/09/19 07:40 06/10/19 08:20 INR, PTT INR 1.13 (0.83-1.09) H 06/08/19 09:35 Impression/Plan Impression/Plan: ASSESSMENT/PLAN: Alcohol Abuse Alcoholic hepatitis Peripheral arterial disease Lower extremity ulcerations --LFTsaTble, possibly from the alcohol , was seen by the GI, and USG was negative, will have to monitor -- --Will need sleep study referral upon discharge --Continue Santyl for lower extremity wounds; completed the clindamycin , and ID is on the case, had MRI of the L leg, and shows no s/o osteomyelitis, --Continue Valium protocol --Continue Procardia 60mg qdaily --Methadone 10mg once today FEN: Fluilds: PO Electrolyte abnormalities: Hypokalemia;resolved Nutrition: Regular PPX: DVT - SCDs Visit type - Emergency Visit Emergency Visit: No - New Patient This patient is new to me today: No - Critical Care Critical Care patient: No - Discharge Referral Referred to [facility] Med P.C.: No
[2019-06-11] MEDS: FOLIC ACID 1 MG TABLET (FP) PO SCH (11:08)
[2019-06-11] MEDS: NIFEdipine E.R 60 MG TABLET (UD) PO SCH (11:08)
[2019-06-11] MEDS: THIAMINE HCL 100 MG TABLET (FP) PO SCH (11:08)
[2019-06-11] MEDS: COLLAGENASE CLOSTRIDIUM HIST. 30 GRAMS TUBE TP SCH (11:09)
[2019-06-11] MEDS ORDERED: METHADONE HCL 40 MG DISPERSABLE TABLET PO ONE (15:07)
[2019-06-11 15:41] VITALS: BP 148/114; PULSE 102; TEMP 98.9
== END 2019-06-11 17:42 | disposition home or self-care (01) | DRG 380 ==
LOC: JER 20:43 → JERBED 06-06 00:41 → J5S 06-06 11:58
PROVIDERS: ADMIT Internal Medicine; ATTEND Internal Medicine
DX: L97.828 Non-pressure chronic ulcer of other part of left lower leg with other specified severity (principal); L03.115 Cellulitis of right lower limb; L03.116 Cellulitis of left lower limb; K70.30 Alcoholic cirrhosis of liver without ascites; F10.230 Alcohol dependence with withdrawal, uncomplicated; F41.9 Anxiety disorder, unspecified; R60.9 Edema, unspecified; E87.6 Hypokalemia; G47.33 Obstructive sleep apnea (adult) (pediatric); K76.0 Fatty (change of) liver, not elsewhere classified; I16.0 Hypertensive urgency; B18.2 Chronic viral hepatitis C; L97.818 Non-pressure chronic ulcer of other part of right lower leg with other specified severity; E66.9 Obesity, unspecified; Z68.32 Body mass index [BMI] 32.0-32.9, adult; R16.2 Hepatomegaly with splenomegaly, not elsewhere classified; G62.1 Alcoholic polyneuropathy; F11.20 Opioid dependence, uncomplicated; D61.818 Other pancytopenia; R35.0 Frequency of micturition; D69.6 Thrombocytopenia, unspecified; I73.9 Peripheral vascular disease, unspecified; M17.0 Bilateral primary osteoarthritis of knee; R94.5 Abnormal results of liver function studies
CPT/HCPCS: 36415; 71045-TC-FY; 73630-TC-LT; 73630-TC-RT-FY; 73718-TC-LT; 73718-TC-RT; 76700-TC; 80048; 80053; 80307; 81003; 82172; 82248; 82607; 82728; 82746; 82977; 83010; 83540; 83550; 83605; 83690; 83735; 83883; 84100; 84460; 84466; 84484; 85025; 85027; 85044; 85610; 85651; 85730; 86140; 86704; 86706; 86707; 86708; 86709; 86803; 86850; 86900; 86901; 87040; 87070; 87086; 87186; 87205; 87340; 87389; 93005; 93010; 93925-TC; 99285-25; J7030

== ENCOUNTER 2019-10-26 20:08 | Inpatient (IN) | payer OTHER ==
--- NOTE | 2019-10-26 22:44 | HP ---
COWS - Scale Resting Pulse: 1= SD 81-100 Sweatin=Flushed/Facial Moisture Restless Observation: 0= Sits Still Pupil Size: 0= Normal to Room Light Bone or Joint Aches: 0= None (R/T OA) Runny Nose/ Eye Tearin= None GI Upset > 30mins: 2= Nausea/Diarrhea Tremor Observation: 1= Tremor [place], Not Seen Yawning Observation: 0= None Anxiety or Irritability: 1=Feels Anxious/Irritable Goose Flesh Skin: 3=Piloerection COWS Score: 10 CIWA Score Nausea/Vomitin-Mild Nausea/No Vomiting Muscle Tremors: 1-None Visible, but [place] Anxiety: 3 Agitation: 1-Slight > Activity Paroxysmal Sweats: 3 Orientation: 0-Oriented Tacttile Disturbances: 2-Mild Itch/Numbness/Burn Auditory Disturbances: 0-None Visual Disturbances: 1-Very Mild Sensitivity (TO LIGHT) Headache: 0-None Present CIWA-Ar Total Score: 12 - Admission Criteria [facility] Guidelines: Admission for Medically Managed Detox: Requires at least one of the followin. CIWA greater than 12 2. Seizures within the past 24 hours 3. Delirium tremens within the past 24 hours 4. Hallucinations within the past 24 hours 5. Acute intervention needed for co occurring medical disorder 6. Acute intervention needed for co occurring psychiatric disorder 7. Severe withdrawal that cannot be handled at a lower level of care (continued vomiting, continued diarrhea, abnormal vital signs) requiring intravenous medication and/or fluids 8. Patient presents the following: Acute intervention needed for co-occurring med or psych disorder (ELEVATED B/P) Admission Criteria Met: Admission criteria met Admitting History and Physical - Past Medical History Pulmonary: Yes: Bronchitis, Sleep Apnea. No: Asthma, Cancer, COPD, O2 Dependent, Pneumonia, Previously Intubated, Pulmonary Embolus, Pulmonary Fibrosis - Smoking History Smoking history: Unknown if ever smoked Have you smoked in the past 12 months: No Aproximately how many cigarettes per day: 12 If you are a former smoker, when did you quit?: 2016 - Alcohol/Substance Use Hx Alcohol Use: Yes (DAILY) Admission [facility] Chief Complaint: here for alcohol detox. C/O WITHDRAWAL SX'S Allergies/Adverse Reactions: Allergies Allergy/AdvReac Type Severity Reaction Status Date / Time No Known Allergies Allergy Verified 06/05/19 22:19 History of Present Illness: HERE FOR ALCOHOL DETOX. CLIENT IS KNOWN TO THIS PROGRAM. LAST HERE 10 MONTHS AGO. HE REPORTS RELAPSE AFTER DC, DRINKING BEER DAILY. HE IS NOTED TO BE ON SBX MGMT 12 MG DAILY. LAST FILLED 10/14/2019 FOR 15 DAYS- 12 MG DAILY. CLIENT UTOX + OPI, FEN, BUP. STATES RX WAS STOLEN BY HIS SON AND HAS NOTED TAKEN IT IN OVER A WEEK. HE STATES HE IS FINE AND DOES NOT WANT TO CONT SBX NOR DOES HE FEEL THE NEED TO DETOX FROM HEROIN. AND DOES NOT WANT METHADONE. STATES USED 1 BAG OF HEROIN THIS MORNING TO HELP WITH HANG OVER AND PREVIOUS LAST USE 5 DAYS AGO. DENIES HX/O IVDU, DRUG OVERDOSE. + WITHDRAWAL SX, BLACKOUTS LAST BEING 2 WEEKS AGO.. DENIES ANY CLEAN TIME IN THE PAST 12 MONTHS. LIVES WITH DAUGHTER, UNEMPLOYED, DENIES LEGALS . Exam Limitations: No Limitations - Ebola screening Have you traveled outside of the country in the last 21 days: No Have you had contact with anyone from an Ebola affected area: No Have you been sick,other than usual withdrawal symptoms: No Do you have a fever: No - Review of Systems Constitutional: No Symptoms Reported EENT: reports: No Symptoms Reported Respiratory: reports: No Symptoms reported Cardiac: reports: No Symptoms Reported GI: reports: No Symptoms Reported : reports: No Symptoms Reported Musculoskeletal: reports: Joint Pain (2/2 OA), Other (AMPUTATION OF 1ST/2ND DIGITS ON BOTH FEET) Integumentary: reports: Other (R GREAT TOE AMPUTATION WITH OPEN WOUND ON PLANTAR ASPECT) Neuro: reports: Numbness, Tremors Endocrine: reports: No Symptoms Reported Hematology: reports: No Symptoms Reported Psychiatric: reports: Orientated x3, Anxious Other Systems: Reviewed and Negative Patient History - Patient Medical History Hx Anemia: No Hx Asthma: No Hx Chronic Obstructive Pulmonary Disease (COPD): No Hx Cancer: No Hx Cardiac Disorders: No Hx Hypertension: Yes (LISINOPRIL) Hx Hypercholesterolemia: No Hx Pacemaker: No HX Cerebrovascular Accident: No Hx Seizures: No Hx Diabetes: No Hx Gastrointestinal Disorders: No Hx Liver Disease: Yes (CIRRHOSIS) Hx Genitourinary Disorders: No Hx Sexually Transmitted Disorders: No Hx Renal Disease (ESRD): No Hx Thyroid Disease: No Hx Human Immunodeficiency Virus (HIV): No Hx Hepatitis C: Yes (HX) Hx Depression: No (FEELS DEPRESSED) Hx Suicide Attempt: No (Denies suicidal ideation at this time) Hx Bipolar Disorder: No Hx Schizophrenia: No - Patient Surgical History Past Surgical History: Yes Hx Neurologic Surgery: No Hx Cataract Extraction: No Hx Cardiac Surgery: No Hx Lung Surgery: No Hx Breast Surgery: No Hx Breast Biopsy: No Hx Abdominal Surgery: No Hx Appendectomy: No Hx Cholecystectomy: No Hx Genitourinary Surgery: No Hx Section: No Hx Orthopedic Surgery: Yes (amputation B/L FOOT IST AND ) Other Surgical History: BROKEN L knee, x3 SX 20 YEARS AGO Anesthesia Reaction: No - PPD History Previous Implant?: Yes Documented Results: Negative w/proof Implanted On Prior [facility] Admission?: Yes Date: 11/30/18 Results: NEGATIVE PPD to be Administered?: Yes - Smoking Cessation Smoking history: Former smoker Have you smoked in the past 12 months: No Aproximately how many cigarettes per day: 12 If you are a former smoker, when did you quit?: 2015 Cigars Per Day: 0 Hx Chewing Tobacco Use: No Initiated information on smoking cessation: No - Substance & Tx. History Hx Alcohol Use: Yes Hx Substance Use: Yes Substance Use Type: Alcohol, Heroin Hx Substance Use Treatment: Yes ([facility]) - Substances abused Alcohol Substance route: Oral Frequency: Daily Amount used: 12-20 24 OZ Age of first use: 15 Date of last use: 10/26/19 Heroin Substance route: Inhalation Frequency: 1-3 times last 30 days Amount used: 1 BAG Age of first use: 22 Date of last use: 10/26/19 (1 BAG PREVIOUS USE 5 DAYS AGO) Admission Physical Exam [facility] Physical General Appearance: Yes: Mild Distress, Tremorous (FELT), Anxious HEENTM: Yes: EOMI, Normocephalic, Normal Voice, MARLA, Pharynx Normal Respiratory: Yes: Chest Non-Tender, Lungs Clear, Normal Breath Sounds, No Respiratory Distress, No Accessory Muscle Use Neck: Yes: No masses,lesions,Nodules, Supple, Trachea in good position Breast: Yes: Breasts Symetrical Cardiology: Yes: Regular Rhythm, Regular Rate, S1, S2 Abdominal: Yes: Normal Bowel Sounds, Non Tender, Soft, Protuberent Genitourinary: Yes: Within Normal Limits Back: Yes: Normal Inspection Musculoskeletal: Yes: full range of Motion, Gait Steady Extremities: Yes: Normal Range of Motion, Non-Tender, Tremors, Amputation (OF 1ST AND 2ND DIGITS OF BOTH FEET. OPEN WOUND NOTED TO PLANTAR OF RIGHT FOOT. NO REDNESS, DRAINAGE NOTED) Neurological: Yes: Fully Oriented, Alert, Motor Strength 5/5, Depressed Affect Integumentary: Yes: Clammy (COOL), Other (PILORECTION) Lymphatic: Yes: Within Normal Limits - Diagnostic (1) Alcohol dependence with uncomplicated withdrawal Current Visit: Yes Status: Chronic (2) Hepatitis C Current Visit: Yes Status: Chronic Qualifiers: Viral hepatitis chronicity: unspecified Hepatic coma status: without hepatic coma Qualified Code(s): B19.20 - Unspecified viral hepatitis C without hepatic coma (3) Hypertension Current Visit: Yes Status: Chronic Qualifiers: Hypertension type: essential hypertension Qualified Code(s): I10 - Essential (primary) hypertension (4) Neuropathy Current Visit: Yes Status: Chronic (5) Opioid dependence with withdrawal Current Visit: Yes Status: Acute (6) Depressed affect Current Visit: Yes Status: Acute (7) Right foot ulcer Current Visit: Yes Status: Chronic Qualifiers: Non-pressure ulcer stage: unspecified non-pressure ulcer stage Qualified Code(s): L97.519 - Non-pressure chronic ulcer of other part of right foot with unspecified severity Cleared for Admission [facility] - Detox or Rehab [facility] Level of Care: Medically Managed Detox Regimen/Protocol: Ativan Claeared for Rehab Admission: No Breathalyzer - Breathalyzer Breathalyzer: 0.287 Urine Drug Screen - Test Device Lot number: [id number] Expiration date: 01/21/21 - Control Is test valid?: Yes - Results Drug screen NEGATIVE: No Urine drug screen results: MTD-Methadone Inpatient Rehab Admission - Rehab Decision to Admit Inpatient rehab admission?: No
[2019-10-26] MEDS ORDERED: ONDANSETRON *ODT* 4 MG TABLET SL ONE (23:19)
[2019-10-26] MEDS ORDERED: DICYCLOMINE HCL 10 MG CAPSULE PO PRN (23:19)
[2019-10-26] MEDS ORDERED: chlordiazePOXIDE HCL 25 MG CAPSULE PO PRN (23:19)
[2019-10-26] MEDS ORDERED: METHOCARBAMOL 500 MG TABLET PO PRN (23:19)
[2019-10-26] MEDS ORDERED: BISMUTH SUBSALICYLATE 524 MG/30 ML UD PO PRN (23:19)
[2019-10-26] MEDS ORDERED: MENTHOL/PHENOL 1 EACH UD MM PRN (23:19)
[2019-10-26] MEDS ORDERED: guaiFENesin 200 MG/10 ML 10 ML UNIT-DOSE CUPS PO PRN (23:19)
[2019-10-26] MEDS ORDERED: P-EPHED 60MG/TRIPROLIDI 2.5MG TABLET PO PRN (23:19)
[2019-10-26] MEDS ORDERED: ACETAMINOPHEN 325 MG TABLET (FP) PO PRN ×2 (23:19)
[2019-10-26] MEDS ORDERED: IBUPROFEN 400 MG TABLET (FP) PO PRN (23:19)
[2019-10-26] MEDS ORDERED: MAGNESIUM HYDROX 2400MG/30ML ORAL SUSPENSION 30 ML CUP PO PRN (23:19)
[2019-10-26] MEDS ORDERED: MAGNESIUM CITRATE 300 ML BOTTLE PO PRN (23:19)
[2019-10-26] MEDS ORDERED: MAG HYDROX/AL HYDROX/SIMETH 30 ML UNIT-DOSE CUP PO PRN (23:19)
[2019-10-27] MEDS: chlordiazePOXIDE HCL 25 MG CAPSULE PO SCH ×2 (01:47→07:54)
[2019-10-27] MEDS: cloNIDine HCL 0.1 MG TABLET PO PRN ×2 (03:23→23:17)
[2019-10-27] MEDS ORDERED: LORazepam 1 MG TABLET PO PRN (07:52)
[2019-10-27] MEDS: hydrOXYzine PAMOATE 25 MG CAPSULE (FP) PO SCH ×2 (07:53→13:33)
[2019-10-27] MEDS ORDERED: hydrOXYzine PAMOATE 25 MG CAPSULE (FP) PO PRN (10:06)
[2019-10-27] MEDS: PRENATAL VITAMINS W/ FOLIC ACID TABLET (FP) PO SCH (10:58)
[2019-10-27] MEDS: BACITRACIN 0.9 GM PACKET TP SCH (10:58)
[2019-10-27] MEDS: LORazepam 2 MG TABLET PO SCH ×3 (10:59→22:32)
[2019-10-27 13:07] LABS: HEMATOCRIT 40.1 % (35.4-49); HEMOGLOBIN 13.7 GM/dL (11.7-16.9); MCH 31.5 pg (25.7-33.7); MCHC 34.1 g/dl (32.0-35.9); MEAN CELL VOLUME 92.2 fl (80-96); PLATELET COUNT 132 K/MM3 (134-434); RBC 4.34 M/mm3 (4.00-5.60); RDW 14.9 % (11.9-15.9); WHITE BLOOD COUNT 5.7 K/mm3 (4.0-10.0)
--- NOTE | 2019-10-27 13:13 | PN ---
[facility] COWS - Scale Resting Pulse: 1= [place] 81-100 Sweatin=Flushed/Facial Moisture Restless Observation: 1= Difficult to Sit Still Pupil Size: 0= Normal to Room Light Bone or Joint Aches: 1= Mild Discomfort Runny Nose/ Eye Tearin= Nasal Congestion GI Upset > 30mins: 0= None Tremor Observation of Outstretched Hands: 1= Tremor [place], Not Seen Yawning Observation: 2= >3x During Session Anxiety or Irritability: 2=Irritable/Anxious Goose Flesh Skin: 0=Smooth Skin COWS Score: 11 [facility] Progress Note (SOAP) Subjective: tired sweats shakes body aches irritable Objective: 10/27/19 13:11 Vital Signs Temperature 98.5 F 10/27/19 09:07 Pulse Rate 92 H 10/27/19 09:07 Respiratory Rate 18 10/27/19 09:07 Blood Pressure 124/56 L 10/27/19 09:07 O2 Sat by Pulse Oximetry (%) Laboratory Tests 10/27/19 09:00 WBC 5.7 RBC 4.34 Hgb 13.7 Hct 40.1 MCV 92.2 MCH 31.5 MCHC 34.1 RDW 14.9 Plt Count 132 L D MPV 9.0 rest of labs pending aaox3 ambulating no acute distress Assessment: 10/27/19 13:12 withdrawal sx Plan: continue detox increase fluids pending labs
[2019-10-27 13:17] LABS: ALBUMIN 4.2 g/dl (3.4-5.0); BILIRUBIN,TOTAL 1.4 mg/dL (0.2-1); BLOOD UREA NITROGEN 16.9 mg/dL (7-18); CALCIUM 9.1 mg/dL (8.5-10.1); CREATININE 0.8 mg/dL (0.55-1.3); POTASSIUM 4.4 mmol/L (3.5-5.1); TOT PROT 8.4 g/dl (6.4-8.2)
[2019-10-27] MEDS ORDERED: PNEUMOC 13-VAL CONJ-DIP CRM/PF 0.5 ML DISP.SYRIN IM ONE (14:52)
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
[2019-10-27] MEDS: MELATONIN 5 MG TABLETS PO SCH (22:32)
[2019-10-27] MEDS: THIAMINE HCL 100 MG TABLET (FP) PO SCH (22:32)
[2019-10-28] MEDS: LISINOPRIL 20 MG TABLET (FP) PO SCH (02:28)
[2019-10-28] MEDS ORDERED: chlordiazePOXIDE HCL 25 MG CAPSULE PO SCH (05:00)
[2019-10-28] MEDS: LORazepam 2 MG TABLET PO SCH ×2 (05:48→11:03)
[2019-10-28] MEDS: BACITRACIN 0.9 GM PACKET TP SCH (09:54)
[2019-10-28] MEDS: PRENATAL VITAMINS W/ FOLIC ACID TABLET (FP) PO SCH (09:54)
[2019-10-28] MEDS: cloNIDine HCL 0.1 MG TABLET PO PRN (09:54)
[2019-10-28] MEDS: NIFEdipine E.R 60 MG TABLET PO SCH (11:03)
[2019-10-28] MEDS ORDERED: PNEUMOCOCCAL 23 VACCINE 0.5 ML VIAL IM ONE (12:00)
--- NOTE | 2019-10-28 12:25 | PN ---
[facility] CIWA - CIWA Score Nausea/Vomitin-No Nausea/No Vomiting Muscle Tremors: 3 Anxiety: 2 Agitation: 3 Paroxysmal Sweats: 3 Orientation: 0-Oriented Tacttile Disturbances: 0-None Auditory Disturbances: 0-None Visual Disturbances: 0-None Headache: 0-None Present CIWA-Ar Total Score: 11 [facility] COWS - Scale Resting Pulse: 4= NC > 121 Sweatin= Chills/Flushing Restless Observation: 1= Difficult to Sit Still Pupil Size: 0= Normal to Room Light Bone or Joint Aches: 1= Mild Discomfort Runny Nose/ Eye Tearin= None GI Upset > 30mins: 0= None Tremor Observation of Outstretched Hands: 1= Tremor [place], Not Seen Yawning Observation: 1= 1-2x During Session Anxiety or Irritability: 2=Irritable/Anxious Goose Flesh Skin: 0=Smooth Skin COWS Score: [address] [facility] Progress Note (SOAP) Subjective: sweats shakes agitation anxiety interrupted sleep Objective: 10/28/19 12:23 Vital Signs Temperature 97.5 F L 10/28/19 09:42 Pulse Rate 131 H 10/28/19 09:42 Respiratory Rate 10/28/19 09:42 Blood Pressure 138/71 10/28/19 09:42 O2 Sat by Pulse Oximetry (%) Laboratory Tests 10/27/19 10/27/19 10/27/19 09:00 09:00 09:00 WBC 5.7 RBC 4.34 Hgb 13.7 Hct 40.1 MCV 92.2 MCH 31.5 MCHC 34.1 RDW 14.9 Plt Count 132 L D MPV 9.0 Sodium 139 Potassium 4.4 Chloride 101 Carbon Dioxide 31 Anion Gap 7 L BUN 16.9 Creatinine 0.8 Est GFR (CKD-EPI)AfAm 114.93 Est GFR (CKD-EPI)NonAf 99.16 Random Glucose 86 Calcium 9.1 Total Bilirubin 1.4 H AST 72 H ALT 67 H Alkaline Phosphatase 99 Total Protein 8.4 H Albumin 4.2 RPR Titer Nonreactive labs noted ast/alt elevated; d/c tylenol repeat labs aaox3 ambulating no acute distress Assessment: 10/28/19 12:23 withdrawals Plan: continue detox clonidine 0.1mg prn tylenol d/c repeat labs
[2019-10-28] MEDS: LORazepam 1 MG TABLET PO SCH ×2 (17:24→22:23)
[2019-10-28] MEDS: hydrOXYzine PAMOATE 25 MG CAPSULE (FP) PO PRN ×2 (17:25→22:25)
--- NOTE | 2019-10-28 18:55 | PN ---
[facility] Progress Note Note: Reviewed today's EKG which shows sinus tachycardia @ 104 w/ (L) anterior fasicular block. Reviewed EKG which also shows LAFB. Denies CP/SOB. States has had tachycardia in the past. Vital Signs - 24 hr 10/27/19 10/28/19 10/28/19 20:41 00:35 00:50 Temperature 98.1 F 97.7 F Pulse Rate 91 H 85 Respiratory 20 18 18 Rate Blood Pressure 131/101 H 164/94 10/28/19 10/28/19 10/28/19 01:59 05:19 06:35 Temperature 97.7 F 98.8 F 97.9 F Pulse Rate 93 H 104 H 85 Respiratory 18 17 20 Rate Blood Pressure 162/100 141/97 143/99 10/28/19 10/28/19 09:42 12:39 Temperature 97.5 F L 98.6 F Pulse Rate 131 H 121 H Respiratory 20 19 Rate Blood Pressure 138/71 129/85 Plan: Will monitor tachycardia.
[2019-10-28] MEDS: traZODone HCL 50 MG TABLET (FP) PO SCH (22:23)
[2019-10-28] MEDS: THIAMINE HCL 100 MG TABLET (FP) PO SCH (22:23)
[2019-10-28] MEDS: MELATONIN 5 MG TABLETS PO SCH (22:23)
[2019-10-29] MEDS ORDERED: chlordiazePOXIDE HCL 10 MG CAPSULE PO PRN
[2019-10-29] MEDS ORDERED: chlordiazePOXIDE HCL 10 MG CAPSULE PO SCH (05:00)
[2019-10-29] MEDS: LORazepam 1 MG TABLET PO SCH ×2 (06:17→10:15)
[2019-10-29] MEDS: cloNIDine HCL 0.1 MG TABLET PO PRN (06:18)
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
[2019-10-29 09:12] LABS: BASO % 0.6 % (0-2.0); EOS % 0.8 % (0-4.5); HEMATOCRIT 40.4 % (35.4-49); HEMOGLOBIN 13.8 GM/dL (11.7-16.9); LYMPH % 20.6 % (8-40); MCH 31.4 pg (25.7-33.7); MCHC 34.2 g/dl (32.0-35.9); MEAN CELL VOLUME 91.9 fl (80-96); MEAN PLT VOLUME 9.1 fl (7.5-11.1); MONO % 7.3 % (3.8-10.2); NEUT % 70.7 % (42.8-82.8); PLATELET COUNT 125 K/MM3 (134-434); RDW 14.9 % (11.9-15.9); WHITE BLOOD COUNT 6.9 K/mm3 (4.0-10.0)
[2019-10-29 09:24] LABS: ALBUMIN 4.4 g/dl (3.4-5.0); BILIRUBIN,TOTAL 1.6 mg/dL (0.2-1); BLOOD UREA NITROGEN 11.3 mg/dL (7-18); CALCIUM 9.2 mg/dL (8.5-10.1); CREATININE 0.7 mg/dL (0.55-1.3); POTASSIUM 3.7 mmol/L (3.5-5.1); TOT PROT 8.7 g/dl (6.4-8.2)
[2019-10-29] MEDS: BACITRACIN 0.9 GM PACKET TP SCH (10:15)
[2019-10-29] MEDS: NIFEdipine E.R 60 MG TABLET PO SCH (10:15)
[2019-10-29] MEDS: PRENATAL VITAMINS W/ FOLIC ACID TABLET (FP) PO SCH (10:15)
[2019-10-29] MEDS: LISINOPRIL 20 MG TABLET (FP) PO SCH (10:15)
--- NOTE | 2019-10-29 10:31 | EKG ---
Test Reason : Blood Pressure : / mmHG Vent. Rate : 104 BPM Atrial Rate : 104 BPM P-R Int : 124 ms QRS Dur : 098 ms QT Int : 362 ms P-R-T Axes : 054 -74 049 degrees QTc Int : 476 ms SINUS TACHYCARDIA LEFT ANTERIOR FASCICULAR BLOCK ABNORMAL ECG WHEN COMPARED WITH ECG OF 06-JUN-2019 01:19, NONSPECIFIC T WAVE ABNORMALITY NO LONGER EVIDENT IN LATERAL LEADS Confirmed by Flakito Aleman MD ([id number]) on 10/29/2019 10:31:00 AM Referred By: Marco Antonio Hong Confirmed By:Flakito Aleman MD
[2019-10-29] MEDS: BUPRENORPHINE/NALOXONE 4 MG/1 MG FILM PACKET SL SCH ×2 (14:04→22:11)
[2019-10-29] MEDS: LORazepam 0.5 MG TABLET PO SCH ×2 (17:15→22:11)
[2019-10-29] MEDS: THIAMINE HCL 100 MG TABLET (FP) PO SCH (22:11)
[2019-10-29] MEDS: traZODone HCL 50 MG TABLET (FP) PO SCH (22:12)
[2019-10-29] MEDS: MELATONIN 5 MG TABLETS PO SCH (22:12)
[2019-10-30] MEDS ORDERED: LORazepam 0.5 MG TABLET PO PRN
[2019-10-30] MEDS ORDERED: chlordiazePOXIDE HCL 10 MG CAPSULE PO SCH (05:00)
[2019-10-30] MEDS ORDERED: LORazepam 0.5 MG TABLET PO ONE (05:00)
[2019-10-30] MEDS: BUPRENORPHINE/NALOXONE 4 MG/1 MG FILM PACKET SL SCH (06:05)
[2019-10-30] MEDS: LORazepam 0.5 MG TABLET PO SCH ×2 (06:07→10:34)
[2019-10-30] MEDS: BACITRACIN 0.9 GM PACKET TP SCH (10:33)
[2019-10-30] MEDS: PRENATAL VITAMINS W/ FOLIC ACID TABLET (FP) PO SCH (10:33)
[2019-10-30] MEDS: NIFEdipine E.R 60 MG TABLET PO SCH (10:34)
[2019-10-30] MEDS: LISINOPRIL 20 MG TABLET (FP) PO SCH (10:34)
--- NOTE | 2019-10-30 10:52 | DS ---
[facility] Detox Discharge Summary Admission Date: 10/26/19 Discharge Date: 10/30/19 - History Present History: Alcohol Dependence, Opioid Dependence - Physical Exam Results Vital Signs: Vital Signs Temperature 97.9 F 10/30/19 05:57 Pulse Rate 67 10/30/19 05:57 Respiratory Rate 18 10/30/19 06:30 Blood Pressure 127/75 10/30/19 05:57 O2 Sat by Pulse Oximetry (%) Pertinent Admission Physical Exam Findings: Vital Signs Temperature 97.9 F 10/30/19 05:57 Pulse Rate 67 10/30/19 05:57 Respiratory Rate 18 10/30/19 06:30 Blood Pressure 127/75 10/30/19 05:57 O2 Sat by Pulse Oximetry (%) Laboratory Tests 10/27/19 10/27/19 10/27/19 09:00 09:00 09:00 WBC 5.7 RBC 4.34 Hgb 13.7 Hct 40.1 MCV 92.2 MCH 31.5 MCHC 34.1 RDW 14.9 Plt Count 132 L D MPV 9.0 Absolute Neuts (auto) Neutrophils % Lymphocytes % Monocytes % Eosinophils % Basophils % Nucleated RBC % Sodium 139 Potassium 4.4 Chloride 101 Carbon Dioxide 31 Anion Gap 7 L BUN 16.9 Creatinine 0.8 Est GFR (CKD-EPI)AfAm 114.93 Est GFR (CKD-EPI)NonAf 99.16 Random Glucose 86 Calcium 9.1 Total Bilirubin 1.4 H AST 72 H ALT 67 H Alkaline Phosphatase 99 Total Protein 8.4 H Albumin 4.2 RPR Titer Nonreactive 10/29/19 10/29/19 07:40 07:40 WBC 6.9 RBC 4.40 Hgb 13.8 Hct 40.4 MCV 91.9 MCH 31.4 MCHC 34.2 RDW 14.9 Plt Count 125 L MPV 9.1 Absolute Neuts (auto) 4.8 Neutrophils % 70.7 Lymphocytes % 20.6 Monocytes % 7.3 Eosinophils % 0.8 Basophils % 0.6 Nucleated RBC % 0 Sodium 144 Potassium 3.7 Chloride 107 Carbon Dioxide 27 Anion Gap 10 BUN 11.3 Creatinine 0.7 Est GFR (CKD-EPI)AfAm 121.41 Est GFR (CKD-EPI)NonAf 104.76 Random Glucose 138 H Calcium 9.2 Total Bilirubin 1.6 H AST 82 H ALT 94 H Alkaline Phosphatase 98 Total Protein 8.7 H Albumin 4.4 RPR Titer aaox3 ambulating no acute distress lungs CTA - Treatment Hospital Course: Detox Protocol Followed, Detoxed Safely, Responded well, Discharged Condition Good, Rehab Referral Accepted - Medication Discharge Medications: Ambulatory Orders Lisinopril [Prinivil -] 40 mg PO DAILY 10/28/19 Nifedipine ER [Procardia XL -] 60 mg PO DAILY 10/28/19 - Diagnosis (1) Alcohol dependence with uncomplicated withdrawal Current Visit: Yes Status: Chronic (2) Depressed affect Current Visit: Yes Status: Acute (3) Opioid dependence with withdrawal Current Visit: Yes Status: Chronic (4) Substance induced mood disorder Current Visit: Yes Status: Acute (5) Alcohol dependence Current Visit: Yes Status: Chronic Qualifiers: Substance use status: uncomplicated Qualified Code(s): F10.20 - Alcohol dependence, uncomplicated (6) Hepatitis C Current Visit: Yes Status: Chronic Qualifiers: Viral hepatitis chronicity: unspecified Hepatic coma status: without hepatic coma Qualified Code(s): B19.20 - Unspecified viral hepatitis C without hepatic coma (7) Hypertension Current Visit: Yes Status: Chronic Qualifiers: Hypertension type: essential hypertension Qualified Code(s): I10 - Essential (primary) hypertension (8) Neuropathy Current Visit: Yes Status: Chronic (9) Right foot ulcer Current Visit: Yes Status: Chronic Qualifiers: Non-pressure ulcer stage: unspecified non-pressure ulcer stage Qualified Code(s): L97.519 - Non-pressure chronic ulcer of other part of right foot with unspecified severity (10) Alcohol abuse with uncomplicated intoxication Current Visit: No Status: Acute (11) Cellulitis and abscess of foot Current Visit: No Status: Acute (12) Elevated LFTs Current Visit: No Status: Acute (13) Hypokalemia Current Visit: No Status: Acute (14) Multiple open wounds of foot Current Visit: No Status: Acute (15) Thrombocytopenia Current Visit: No Status: Acute (16) Arthritis of both knees Current Visit: No Status: Chronic (17) Bilateral great toes ulcers Current Visit: No Status: Chronic (18) History of amputation of great toe Current Visit: No Status: Chronic (19) 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
[2019-10-30 11:20] VITALS: BP 112/67; PULSE 99; TEMP 96.3
[2019-10-31] MEDS ORDERED: chlordiazePOXIDE HCL 10 MG CAPSULE PO ONE (05:00)
== END 2019-10-30 10:50 | disposition home or self-care (01) | DRG 773 ==
LOC: YASAS 20:08 → Y6N 23:58
PROVIDERS: ADMIT Allergy & Immunology; ATTEND Allergy & Immunology
PROC: HZ2ZZZZ Detoxification Services for Substance Abuse Treatment (ICD-10-PCS; principal; 2019-10-26)
DX: F10.230 Alcohol dependence with withdrawal, uncomplicated (principal); F11.23 Opioid dependence with withdrawal; F19.24 Other psychoactive substance dependence with psychoactive substance-induced mood disorder; I10 Essential (primary) hypertension; E87.6 Hypokalemia; D69.6 Thrombocytopenia, unspecified; B19.20 Unspecified viral hepatitis C without hepatic coma; G62.9 Polyneuropathy, unspecified; L97.511 Non-pressure chronic ulcer of other part of right foot limited to breakdown of skin; M17.0 Bilateral primary osteoarthritis of knee; E66.9 Obesity, unspecified; Z68.34 Body mass index [BMI] 34.0-34.9, adult; Z89.422 Acquired absence of other left toe(s); Z89.421 Acquired absence of other right toe(s); R45.89 Other symptoms and signs involving emotional state; R94.5 Abnormal results of liver function studies
CPT/HCPCS: 36415; 80053; 85025; 85027; 86593; 93005; 93010; J0735; Q0162